=== PATIENT | female | born 1945 | race Caucasian/White ===

== ENCOUNTER → 2020-10-09 12:12 | Outpatient (CLI) | payer MEDICARE, SELFPAY ==
--- NOTE | 2020-10-09 12:34 | CA_ITS ---
APPROVED REPORT EXAM: Comprehensive 2D, Doppler, and color-flow Echocardiogram Mortician Helper: Mercedes Childress CRT Ht: 4 ft 11 in Wt: 138lbs BSA: 1.58 BP: 164/71 mmHg Indications: Abnormal ECG, Shortness of Breath, Atrial Fibrillation, CAD, Hyperlipidemia, Hypertension/HDD, CABG, Stent 2D Dimensions LVOT 1.60 cm (M/F) 1.5-2.5 M-Mode Dimensions RVDd 2.60 cm (0.9-2.6) LA Diam 4.20 cm (1.9-4.0) LVDd 3.80 cm (3.5-5.7) Ao Diam 2.50 cm (2.0-3.7) LVDs 2.50 cm (3.5-5.7) AV Cusp 1.80 cm (1.5-2.6) IVSd 1.00 cm (0.6-1.1) PWd 1.00 cm (0.6-1.1) EF (Teich) 64.00% FS 34.20% EDV (Teich) 62.00 mL ESV (Teich) 22.30 mL LV Diastology E/A Ratio 3.20 MED E' 4.87 (< 7 cm/sec) E'/MED E' Ratio 22.60 (>14) LAT E' 8.68 (<10 cm/sec) E/LAT E' Ratio 12.70 (>14) Aortic Valve AoV Peak Aj. 206.00 (50-130 cm/s) AI PHT 720.00 ms AO Peak GR. 17.00 mmHg Mitral Valve MV E Max Aj. 110.00 (40-130 cm/s) MV A Velocity 34.10 (40-130 cm/s) E/A Ratio 3.20 Pulmonary Valve LA End VMAX 38.20 cm/s PA Accel Time 74.00 (>120 msec) Tricuspid Valve TR P. Velocity 264.00 cm/s RAP Estimate 10.00 mmHg RVSP 38.00 mmHg Left Ventricle Left atrium is moderately enlarged, left ventricle is normal size, mild concentric left ventricular hypertrophy, visually estimated ejection fraction 55% with no regional wall motion abnormality, there is abnormal septal motion. Diastolic parameters are inconclusive. Right Ventricle Right atrium and right ventricle moderately enlarged with normal contractility. Aortic Valve Aortic valve is thickened and calcified leaflet chordae display good mobility, there is no aortic stenosis, there is mild aortic insufficiency. Mitral Valve Mitral valve leaflets are minimally thickened, there is mild mitral regurgitation. Tricuspid Valve Tricuspid valve is minimally thickened, there is moderate to severe tricuspid regurgitation, calculated right ventricular systolic pressure is 59 mmHg. Pulmonic Valve Pulmonic valve is poorly visualized. Great Vessels Aortic root is normal size. Pericardium No significant pericardial effusion noted. Conclusion 1. Moderate biatrial enlargement, normal left ventricular size, mild concentric left ventricular hypertrophy, visually estimated ejection fraction 55% is abnormal septal motion, diastolic parameters are inconclusive. 2. Enlarged right ventricle with normal contractility. 3. Thickened and calcified aortic valve with mild aortic insufficiency, there is no aortic stenosis. 4. Mild mitral and moderate to severe tricuspid regurgitation, calculated right ventricular systolic pressure is 59 mmHg, inferior vena cava is not well-visualized. 5. No significant pericardial effusion noted. Electronically signed by : Heladio Mike, 10/10/2020 06:13:16
[2020-10-09 13:06] LABS: Basophils # 0.1 K/mm3 (0-0.2); Basophils % 0.7 % (0.1-2.0); Eosinophils % 0.7 % (0.1-12.0); Hematocrit 45.9 % (37.0-47.0); Hemoglobin 15.1 g/dL (12.2-16.2); Lymphocytes # 1.7 K/mm3 (0.7-4.5); Lymphocytes % 25.2 % (10-50); Mean Corpuscular Hemoglobin 29.7 pg (27.0-31.2); Mean Platelet Volume 8.5 fl (7.4-10.4); Monocytes # 0.5 K/mm3 (0.1-1.0); Monocytes % 7.9 % (1.7-9.3); Neutrophils # 4.4 K/mm3 (1.8-7.8); Neutrophils % 65.5 % (37.0-80.0); Platelet Count 111 K/mm3 (142-424); White Blood Count 6.8 K/mm3 (4.8-10.8)
--- NOTE | 2020-10-09 14:06 | XR_ITS ---
PROCEDURE: XR CHEST 2V CLINICAL HISTORY: dyspnea COPD, dyspnea COMPARISON: No exams were available for comparison FINDINGS: Prior CABG. Mild cardiomegaly without failure. The lungs are clear without infiltrates, suspicious nodules, or pleural effusions. No acute bony abnormalities. IMPRESSION: Mild cardiomegaly otherwise negative Dictated by: Teo Rachel MD 10/09/2020 14:19 Teo Rachel MD in [place] 10/09/2020 14:19
[2020-10-09 14:21] LABS: Chloride 105 mmol/L (98-107)
[2020-10-09 14:22] LABS: Potassium 4.4 mmoL/L (3.5-5.1); Sodium 140 mmol/L (136-145)
[2020-10-09 14:24] LABS: Alanine Aminotransferase 18 U/L (12-78); Aspartate Amino Transferase 46 U/L (14-36); Blood Urea Nitrogen 26 mg/dl (7-17); Estimated Glomerular Filt Rate 40 ml/min (>60); GFR (African American) 48 ML/MIN (>60)
[2020-10-09 14:25] LABS: Albumin Level 4.6 g/dl (3.5-5.0); Alkaline Phosphatase 110 U/L (38-126); Anion Gap 13.4 mEq/L (5-15); Bilirubin,Direct 0.2 mg/dl (0.0-0.4); Bilirubin,Total 1.2 mg/dl (0.2-1.3); Calcium 10.4 mg/dl (8.4-10.2); Carbon Dioxide 26 mmol/L (22.0-30.0); Chol/HDL Ratio 2.6 (1-3.5); Cholesterol 113 mg/dl (140-200); Glucose 98 mg/dl (74-100); HDL Cholesterol 43 mg/dl (40-60); Total Protein,Serum 6.9 g/dl (6.3-8.2); Triglycerides 93 mg/dl (30-150); VLDL Cholesterol 19 mg/dL (0-40)
[2020-10-09 14:36] LABS: Direct LDL Cholesterol 59.71 mg/dL (100-129)
[2020-10-09 14:56] LABS: Thyroid Stimulating Hormone 2.37 uIU/mL (0.465-4.68)
== END ==
LOC: LAB 12:12 → RT 14:01
PROVIDERS: PCP Physician Assistant Medical; Visit Provider Internal Medicine
DX: I25.10 Atherosclerotic heart disease of native coronary artery without angina pectoris (principal); I48.20 Chronic atrial fibrillation, unspecified; R94.31 Abnormal electrocardiogram [ECG] [EKG]; Z95.1 Presence of aortocoronary bypass graft; Z95.5 Presence of coronary angioplasty implant and graft; R06.00 Dyspnea, unspecified
CPT/HCPCS: 36415; 71046; 80048; 80061; 80076; 84439; 84443; 85025; 93306

== ENCOUNTER → 2020-10-23 06:17 | Outpatient (CLI) | payer MEDICARE, SELFPAY ==
--- NOTE | 2020-10-23 06:17 | CA_ITS ---
APPROVED REPORT Exam: Pharmacologic Technologist: Trinidad Rick Ht: 4 ft 11 in Wt: 138 lbs BSA: 1.58 m2 HR: 68 bpm BP: 173/56 mmHg Indications: Shortness of Air, History of CABG, Abnormal EKG Medical History Medications: Lisinopril,,,,, Furosemide (LASIX),,,,, Vitamin D3,,,,, Famotidine,,,,, RoSUVASTATIN,,,,, RIvaROXABAN,,,,, FluTICASONE-Salmeterol,,,,, Stress Test Details Test: LEXISCAN HR Resting HR: 72 bpm Max Heart Rate (APMHR): 146 bpm Max HR Achieved: 120 bpm Target HR (85% APMHR): 124 bpm % of APMHR: 82 Recovery HR: 70 bpm BP Resting BP: 173.0/56.0 mmHg Max BP: 173.0/56.0 mmHg Recovery BP: 141.0/67.0 mmHg ECG Clinical Exercise duration: 04:04 min Highest Stage Achieved: Exercise capacity: 1.0 METs Stress ECG Conclusion Symptoms: Shortness of breath and dizziness, with Lexiscan Arrhythmias/Ectopy: Rare PVCs ST-T Changes: < 1.[address] segment changes. Conclusion: Myoview images to follow. Test Summary REST . . . . . . . Resting REST 25:13 . . 72 . 173/ 56 . . Stage 1 . . . . . . . Myoview Injected Stage 1 01:00 . . 106 . . . . Stage 2 01:00 . . 87 . . . . Stage 3 01:00 . . 76 . 169/ 70 . . Stage 4 01:00 . . 75 . 161/ 72 . . Stage 4 01:04 . . 73 . 161/ 62 . Stop exercise at 04:04 RECOVERY 01:00 . . 83 . . . . RECOVERY 02:00 . . 80 . 154/ 72 . . RECOVERY 03:00 . . 69 . 154/ 72 . . RECOVERY 04:00 . . 73 . 141/ 67 . . RECOVERY 04:40 . . 70 . 141/ 67 . . Electronically signed by : Heladio Mike, 10/24/2020 06:33:07
--- NOTE | 2020-10-23 06:17 | NM_ITS ---
APPROVED REPORT Exam: Nuclear Stress Test Indication: CAD, CABG, SOB, HTN, Family history, Abnormal EKG Patient Location: Outpatient Stress Tech: Trinidad Rick NM Tech:Sybil Mcfarlnad, ARRT, RT (R)(N) Ht: 4 ft 11 in Wt: 138 lbs Bra Size: 36C HR: 68 bpm BP: 173/56 mmHg BSA: 1.58 m2 BMI: 27.8 History: CAD, CABG, SOB, HTN, Family history, Abnormal EKG Procedure: Patient received a 0.4 mg of intravenous Lexiscan, resting heart rate 68 bpm, resting blood pressure 173/56 mmHg, with Lexiscan maximum heart rate achived was 106 bpm which is Less than 85 % of the maximum predicted heart rate and blood pressure was 169/70 mmHg. With Lexiscan, patient denied any complaint of chest pain. Electrocardiogram Resting electrocardiogram showed likely atrial fibrillation, with Lexiscan there is less than 1.[address] segment depression noted from the baseline EKG. The EKG portion of the Lexiscan is nondiagnostic. Cardiac Stress and Resting SPECT Images: Cardiac Stress and Resting SPECT images were obtained using technetium 99m Myoview 31.0 mCi stress and 10.48 mCi at rest. Gated SPECT for analysis of segmental wall motion and calculation of the ejection fraction also done. Cardiac stress and also SPECT images show uniform myocardial activity without segmental perfusion abnormality, computer derived ejection fraction 62% with no regional wall motion abnormality, right ventricle is mildly enlarged with normal contractility. Conclusion: 1. The EKG portion of the Lexiscan is nondiagnostic. 2. No scintigraphic evidence of reversible ischemia seen, computer derived ejection fraction 62% with no regional wall motion abnormality, right ventricle is mildly enlarged with normal contractility. 3. Normal Lexiscan Myoview study. Electronically signed by : Heladio Mike, 10/24/2020 06:39:29
--- NOTE | 2020-10-23 06:17 | CA_ITS ---
APPROVED REPORT Accounting Support Specialist: CT Laterality: Bilateral Study Quality: Good Indications: bilateral JAMAL Risk Factors Hypertension: Doppler Spectral Velocity Analysis ECA (R) 104.00/ cm/s ECA (L) 64.60/ cm/s dICA (R) 130.00/32.10 cm/s dICA (L) 101.00/38.00 cm/s Hank (R) 104.00/36.90 cm/s Hank (L) 91.00/36.90 cm/s pICA (R) 75.10/17.90 cm/s pICA (L) 61.10/16.20 cm/s dCCA (R) 71.50/ cm/s dCCA (L) 76.10/19.60 cm/s pCCA (R) 102.00/25.10 cm/s pCCA (L) 97.80/22.30 cm/s Vert (R) 44.00/ cm/s Vert (L) 47.70/ cm/s ICA/CCA 1.82 ICA/CCA 1.33 Findings Duplex evaluation demonstrates stenosis of the right proximal internal carotid artery <20% with PSV <140 cm/sec, EDV <100 cm/sec, and IC/CC Ratio <4.0. Duplex evaluation demonstrates stenosis of the left proximal internal carotid artery <20% with PSV <140 cm/sec, EDV <100 cm/sec, and IC/CC Ratio <4.0. Duplex evaluation demonstrates antegrade flow of the bilateral Vertebral Arteries. Conclusion Duplex evaluation demonstrates stenosis of the right proximal internal carotid artery <20% with PSV <140 cm/sec, EDV <100 cm/sec, and IC/CC Ratio <4.0. Duplex evaluation demonstrates stenosis of the left proximal internal carotid artery <20% with PSV <140 cm/sec, EDV <100 cm/sec, and IC/CC Ratio <4.0. Duplex evaluation demonstrates antegrade flow of the bilateral Vertebral Arteries. Electronically signed by : Teo Rachel MD 10/24/2020 16:52:16
--- NOTE | 2020-10-23 08:44 | HMH.ITSHM ---
Current Home Medications as stated by this patient Miroslava Portillo or retail service representative. []ROSUVASTATIN RIVAROXABAN LISINOPRIL FUROSEMIDE FAMOTIDINE NASAL SPRAY VITAMIN D3
--- NOTE | 2020-10-23 13:18 | US_ITS ---
PROCEDURE: US THYROID CLINICAL INDICATION: elevated Calcium level COMPARISON: US CA CAROTID DUPLEX BI from 10/23/2020 FINDINGS: Right lobe: 1.3cm x 3.6cm x 0.9cm Left lobe: 1.1cm x 3.2cm x 1.2cm Isthmus: Unremarkable Additional findings: There is a benign-appearing 14 x 8 mm cyst in the lower pole of the right lobe of the thyroid gland. No other nodules are evident. IMPRESSION: 14 mm benign-appearing cyst of the right lobe of the thyroid gland otherwise negative Dictated by: Teo Rachel MD 10/25/2020 13:33 Teo Rachel MD in [place] 10/25/2020 13:33
[2020-10-23 14:51] LABS: 25-OH Vitamin D, Total 43.2 ng/mL (30-100)
[2020-10-26 09:10] LABS: Protein S, Free 85 % (57-157); Protein S, Total 55 % (60-150); Protein S-Functional 105 % (63-140)
[2020-10-27 04:18] LABS: Calcitonin <2.0 pg/mL (0.0-5.0)
[2020-11-08 08:38] LABS: 1,25 Dihydroxy Vitamin D 65 pg/mL (.); 1,25-Dihydroxy, Vitamin D-2 <10 pg/mL (.); 1,25-Dihydroxy, Vitamin D-3 62 pg/mL (.)
== END ==
PROVIDERS: Urology; PCP Physician Assistant Medical; Visit Provider Internal Medicine
DX: I25.10 Atherosclerotic heart disease of native coronary artery without angina pectoris (principal); I48.20 Chronic atrial fibrillation, unspecified; I65.23 Occlusion and stenosis of bilateral carotid arteries; R94.31 Abnormal electrocardiogram [ECG] [EKG]; Z95.1 Presence of aortocoronary bypass graft; Z95.5 Presence of coronary angioplasty implant and graft; E83.52 Hypercalcemia; R06.00 Dyspnea, unspecified
CPT/HCPCS: 36415; 76536; 78452; 82306; 82308; 82652; 83970; 84155; 85305; 85306; 93017; 93880; A9502; J2785

== ENCOUNTER → 2020-11-08 13:28 | Outpatient (CLI) | payer MEDICARE, SELFPAY ==
[2020-11-10 14:51] LABS: Albumin, U 64.3 % (.); Alpha-1-Globulin, U 2.4 % (.); Alpha-2-Globulin, U 11.7 % (.); Beta Globulin, U 13.8 % (.); Gamma Globulin, U 7.8 % (.); M-Spike, % Not Observed % (Not Observed); Prot,24hr calculated 196 mg/24 hr (30-150); Protein,Total,Urine 24.5 mg/dL (Not Estab.)
[2020-11-10 18:46] LABS: Albumin 4.2 g/dL (2.9-4.4); Alpha-1-Globulin 0.3 g/dL (0.0-0.4); Alpha-2-Globulin 0.9 g/dL (0.4-1.0); Gamma Globulin 0.6 g/dL (0.4-1.8); Protein, Total 7.2 g/dL (6.0-8.5)
== END ==
PROVIDERS: Visit Provider Internal Medicine
DX: E83.52 Hypercalcemia (principal)
CPT/HCPCS: 84155; 84156; 84165; 84166

== ENCOUNTER → 2020-11-16 14:03 | Outpatient (CLI) | payer MEDICARE, SELFPAY ==
--- NOTE | 2020-11-16 14:03 | XR_ITS ---
PROCEDURE: XR DEXA AXIAL SKELETON CLINICAL HISTORY: elevated calcium COMPARISON: No exams were available for comparison FINDINGS: The right hip BMD is 0.652 with a T-score of -1.8. The left hip BMD is 0.709 with a T-score of -1.3. The lumbar spine BMD is 0.932 with a T-score of -1.0. IMPRESSION: This patient is considered osteopenic according to the World Health Organization criteria. Bone density is between 10 and 25 percent below young normal. Fracture risk is moderate. Treatment is advised. Based on these results a follow-up exam is recommended in 2 year. Dictated by: Teo Rachel MD 11/17/2020 02:29 Teo Rachel MD in [place] 11/17/2020 11:00
[2020-11-22 12:57] LABS: Calcium, Ionized 5.4
== END ==
PROVIDERS: Otolaryngology; PCP Physician Assistant Medical; Visit Provider Internal Medicine
DX: E78.5 Hyperlipidemia, unspecified (principal); E83.52 Hypercalcemia; I10 Essential (primary) hypertension; I25.10 Atherosclerotic heart disease of native coronary artery without angina pectoris; I48.20 Chronic atrial fibrillation, unspecified; M81.0 Age-related osteoporosis without current pathological fracture; R06.00 Dyspnea, unspecified; Z95.1 Presence of aortocoronary bypass graft; Z95.5 Presence of coronary angioplasty implant and graft
CPT/HCPCS: 77080; 82330

== ENCOUNTER → 2020-11-16 15:56 | Outpatient (CLI) | payer MEDICARE, SELFPAY | PROVIDERS: Visit Provider Otolaryngology | DX: E04.1 Nontoxic single thyroid nodule (principal) | CPT/HCPCS: 82330 ==

== ENCOUNTER → 2020-12-07 08:48 | Outpatient (CLI) | payer MEDICARE, SELFPAY ==
--- NOTE | 2020-12-07 08:49 | NM_ITS ---
PROCEDURE: NM PARATHYROID CLINICAL INDICATION: Thryoid Nodule Elevated calcium, thyroid nodule COMPARISON: US US THYROID from 10/23/2020 TECHNIQUE: Dose 21.0 mCi technetium sestamibi FINDINGS: Ultrasound demonstrated a cystic nodule in the posterior aspect of the right lobe of the thyroid gland. Immediate and 2 hour delayed images are obtained following the intravenous administration of radiopharmaceutical. There is no abnormal uptake on the immediate or the 2 hour delayed images. IMPRESSION: No abnormal uptake within the neck that would indicate a parathyroid adenoma. Dictated by: Teo Rachel MD 12/08/2020 13:01 Teo Rachel MD in [place] 12/08/2020 13:01
== END ==
PROVIDERS: PCP Physician Assistant Medical; Visit Provider Otolaryngology
DX: E04.1 Nontoxic single thyroid nodule (principal); E34.9 Endocrine disorder, unspecified
CPT/HCPCS: 78070; A9500

== ENCOUNTER → 2021-03-05 10:05 | Outpatient (CLI) | payer MEDICARE, SELFPAY ==
[2021-03-05 11:21] LABS: Intact Parathyroid Hormone 84.3 pg/mL (7.5-53.5)
[2021-03-08 12:44] LABS: Calcium, Ionized 5.2 mg/dL (4.5-5.6)
== END ==
PROVIDERS: Visit Provider Otolaryngology
DX: E04.1 Nontoxic single thyroid nodule (principal)
CPT/HCPCS: 36415; 82330; 83970

== ENCOUNTER → 2021-12-18 12:20 | Outpatient (CLI) | payer MEDICARE, SELFPAY ==
--- NOTE | 2021-12-18 12:52 | CA_ITS ---
APPROVED REPORT EXAM: Comprehensive 2D, Doppler, and color-flow Echocardiogram Jig Bore Tool Maker: Jennifer Cedillo RVT Ht: 4 ft 11 in Wt: 135lbs BSA: 1.56 BP: 150/50 mmHg Indications: A-FIB,CABG,CAD,HTN,HLD,SANCHEZ,GERD TDS 2D Dimensions LVOT 1.96 cm (M/F) 1.5-2.5 LA Volume 68.60 mL LA Volume Index 43.97 mL/m2 (M/F) 16-34 M-Mode Dimensions RVDd 2.88 cm (0.9-2.6) LA Diam 4.73 cm (1.9-4.0) LVDd 3.42 cm (3.5-5.7) Ao Diam 2.63 cm (2.0-3.7) LVDs 2.43 cm (3.5-5.7) IVSd 1.52 cm (0.6-1.1) PWd 0.80 cm (0.6-1.1) EF (Teich) 56.80% FS 28.90% EDV (Teich) 48.10 mL TAPSE 1.56 (<1.7) ESV (Teich) 20.80 mL LV Diastology E Decel Time 93.00 (160-240 msec) E/A Ratio 3.1 MED E' 13.00 (< 7 cm/sec) E'/MED E' Ratio 8.96 (>14) LAT E' 12.70 (<10 cm/sec) E/LAT E' Ratio 9.17 (>14) Aortic Valve LVOT Max 122.00 (70-110 cm/s) LVOT VTI 22.22 cm AoV Peak Aj. 229.00 (50-130 cm/s) AI PHT 1070.00 ms AO Peak GR. 21.10 mmHg AO Mean GR. 8.20 (<5 mmHg) AO VTI 30.73 (18-25 cm) MANJEET (VTI) 2.18 (2.5-4.5 cm2) Mitral Valve MV E Max Aj. 117.00 (40-130 cm/s) MV A Velocity 38.00 (40-130 cm/s) E/A Ratio 3.03 MV Decel. Time 93.00 (160-240 ms) MV PHT 27.00 ms Pulmonary Valve PV Peak Velocity 122.00 (50-150 cm/s) Tricuspid Valve TR P. Velocity 413.00 cm/s RAP Estimate 10.00 mmHg RVSP 78.30 mmHg Left Ventricle Left atrium is moderately enlarged, left ventricle is normal size, mild concentric left ventricular hypertrophy, visually estimated ejection fraction 55%, there is abnormal septal motion, there is flattening of the interventricular septum during systole and diastole consistent with pressure and volume overload on right ventricle. Diastolic parameters are inconclusive. Right Ventricle Right atrium and right ventricle moderately enlarged, contractility of the right ventricle is moderately reduced. Aortic Valve Aortic valve is thickened and calcified, mean gradient across aortic valve is 10 mmHg, valve area is 1.56 cm??? represents mild aortic stenosis, there is no aortic insufficiency. Mitral Valve Mitral valve leaflets are minimally thickened, there is mild mitral regurgitation. Tricuspid Valve Tricuspid valve leaflets are not well visualized, there is severe tricuspid regurgitation, calculated right ventricular systolic pressure 78 mmHg. Pulmonic Valve Pulmonic valve is poorly visualized. Great Vessels Aortic root is normal size. No significant pericardial effusion noted. Inferior vena cava is moderately dilated without significant inspiratory collapse. Conclusion 1. Biatrial enlargement, normal left ventricular size, mild concentric left ventricular hypertrophy, visually estimated ejection fraction 55%, there is flattening of the interventricular septum during systole and diastole consistent with pressure and volume overload on right ventricle. Diastolic parameters are inconclusive. 2. Thickened and calcified aortic valve with mild aortic stenosis, valve area is 1.56 cm, there is no significant aortic insufficiency present. 3. Mild mitral and severe tricuspid regurgitation, calculated right ventricular systolic pressure 78 mmHg, inferior vena cava is dilated without significant inspiratory collapse with 4. Moderately enlarged right ventricle with moderately reduced right ventricular systolic function. 5. No significant pericardial effusion noted. Electronically signed by : Heladio Mike MD 12/18/2021 19:20:23
[2021-12-18 12:58] LABS: Basophils % 0.5 % (0.1-2.0); Eosinophils % 0.8 % (0.1-12.0); Hematocrit 38.6 % (37.0-47.0); Lymphocytes # 0.9 K/mm3 (0.7-4.5); Lymphocytes % 18.6 % (10-50); Mean Corpuscular HGB Conc 31.1 g/dL (31.8-35.4); Mean Corpuscular Hemoglobin 28.3 pg (27.0-31.2); Mean Platelet Volume 7.9 fl (7.4-10.4); Monocytes # 0.4 K/mm3 (0.1-1.0); Monocytes % 7.6 % (1.7-9.3); Neutrophils # 3.3 K/mm3 (1.8-7.8); Neutrophils % 72.5 % (37.0-80.0); Platelet Count 103 K/mm3 (142-424); Red Blood Count 4.24 M/mm3 (4.20-5.40); Red Cell Distribution Width 14.4 % (11.5-17.5); White Blood Count 4.6 K/mm3 (4.8-10.8)
[2021-12-18 13:14] LABS: Chloride 104 mmol/L (98-107); Potassium 3.8 mmoL/L (3.5-5.1); Sodium 137 mmol/L (136-145)
[2021-12-18 13:16] LABS: Alanine Aminotransferase 17 U/L (12-78); Aspartate Amino Transferase 39 U/L (14-36); Bilirubin,Unconjugated 1.2 mg/dL (0.0-1.1); Blood Urea Nitrogen 21 mg/dl (7-17); Estimated Glomerular Filt Rate 54 ml/min (>60); GFR (African American) 65 ML/MIN (>60)
[2021-12-18 13:17] LABS: Albumin Level 4.4 g/dl (3.5-5.0); Alkaline Phosphatase 135 U/L (38-126); Anion Gap 11.8 mEq/L (5-15); Bilirubin,Direct 0.5 mg/dl (0.0-0.4); Bilirubin,Indirect 1.2 mg/dL (0.0-0.9); Bilirubin,Total 1.7 mg/dl (0.2-1.3); Calcium 9.1 mg/dl (8.4-10.2); Carbon Dioxide 25 mmol/L (22.0-30.0); Glucose 103 mg/dl (74-100); Total Protein,Serum 6.6 g/dl (6.3-8.2)
[2021-12-18 13:28] LABS: NT Pro Brain Natriuretic Pep. 1020 pg/mL (0-450)
[2021-12-18 15:08] LABS: 25-OH Vitamin D, Total 43.2 ng/mL (30-100)
== END ==
PROVIDERS: PCP Physician Assistant Medical; Visit Provider Internal Medicine
DX: E78.5 Hyperlipidemia, unspecified (principal); I10 Essential (primary) hypertension; I25.10 Atherosclerotic heart disease of native coronary artery without angina pectoris; I48.20 Chronic atrial fibrillation, unspecified; R06.00 Dyspnea, unspecified; R94.31 Abnormal electrocardiogram [ECG] [EKG]; Z95.1 Presence of aortocoronary bypass graft; Z95.5 Presence of coronary angioplasty implant and graft; M81.0 Age-related osteoporosis without current pathological fracture
CPT/HCPCS: 36415; 80048; 80076; 82306; 83880; 84439; 84443; 85025; 93306

== ENCOUNTER 2021-12-18 18:42 | Inpatient (IN) | payer MEDICARE, SELFPAY ==
--- NOTE | 2021-12-18 18:57 | PC.NURSE ---
Pt arrived to the floor at this time
[2021-12-18 19:09] VITALS: BP 153/65; PULSE 72; RESP 14; TEMP 36.8; O2SAT 99; BMI 27.8
[2021-12-18 19:43] LABS: Coronavirus 19, PCR Not Detected (NotDetected); Influenza A, PCR Not Detected (NotDetected); Influenza B, PCR Not Detected (NotDetected)
--- NOTE | 2021-12-18 20:24 | HMH.HP ---
*Admission Date: 12/18/21 *Chief complaint: sob *History of present illness: this patient with known cad, a fib and s/p cabg was seen in the cardiology clinic and had a fib with rapid response and abn echo and was admitted for eval and treatment - [facility] History I have reviewed the patient's past medical history: Yes Medical History: Reports:: Atrial Fibrillation, Coronary Artery Disease, Gastroesophageal Reflux Disease(GERD), Hyperlipidemia, Hypertension *Have you ever received a pneumonia vaccine?: No *Have you received a flu vaccine this season?: No Other Surgeries: Yes: CABG, Cardiac Catheterization, Coronary Stent - *Social History Smoking Status: Never smoker Alcohol Intake: never Substance Use Type: denies use *Occupational Status:: employed, disabled *Travel in the last 8 weeks: None Family Hx:: Coronary Artery Disease, Heart Attack Review of Systems - Review of Systems Review of systems:: pertinent systems reviewed and negative unless documented below - Constitutional Denies fever(s) - Eyes Denies change in vision - ENT Denies sore throat - *Cardiovascular Reports shortness of breath, Reports irregular heart rhythm, Reports fast heart rate, Denies chest pain - *Respiratory Denies cough, Denies coughing up blood - *Gastrointestinal Denies abdominal pain - *Genitourinary Denies blood in urine - *Musculoskeletal Denies joint pain - Integumentary/Breasts Denies rash - *Neurologic Denies dizziness, Denies seizure-like activity - Psychiatric Denies anxiety Meds Home Medications Medication Instructions Recorded Confirmed Type cholecalciferol (vitamin D3) 50 50 mcg PO DAILY 10/09/20 12/18/21 History mcg (2,000 unit) capsule famotidine 20 mg tablet 20 mg PO BID tab 10/09/20 12/18/21 History fluticasone 250 mcg-salmeterol 50 1 inh INHALATION BID each 10/09/20 12/18/21 History mcg/dose blistr powdr for inhalation lisinopril 20 mg tablet 20 mg PO DAILY tab 10/09/20 12/18/21 History rivaroxaban 20 mg tablet 20 mg PO DAILY tab 10/09/20 12/18/21 History albuterol sulfate 90 mcg/actuation g INHALATION 03/12/21 12/18/21 History aerosol inhaler ketoconazole 2 % topical cream applic TOPICAL 03/12/21 12/18/21 History furosemide 40 mg tablet 80 mg PO DAILY tab 06/12/21 12/18/21 History bisoprolol fumarate 10 mg tablet 10 mg PO DAILY #30 tab 12/18/21 12/18/21 Rx Allergies Allergy/AdvReac Type Severity Reaction Status Date / Time No Known Allergies Allergy Verified 12/18/21 10:58 Exam Vital signs and Labs for Last 24 Hours: Temp Pulse Resp BP Pulse Ox 98.3 F 72 14 153/65 H 99 12/18/21 19:09 12/18/21 19:09 12/18/21 19:09 12/18/21 19:09 12/18/21 19:09 I & O for Last 24 hours: Intake & Output 12/16/21 12/17/21 12/18/21 12/19/21 11:59 11:59 11:59 11:59 Weight 138 lb - Constitutional no acute distress - *Routine HEENT Exam Head: Present: normocephalic Eye: Present: EOMI, PERRL ENT: Present: mucous membranes dry - *Routine Neck Exam Present: supple. Absent: JVD - *Routine Respiratory Exam Present: decreased breath sounds - *Routine Cardiovascular Exam Present: murmur, S4, irregular rhythm - *Routine Abdominal Exam Present: soft - *Routine Rectal Exam Rectal:: deferred - *Routine Genitalia Exam Genitalia:: deferred - *Routine Extremities Exam Present: edema. Absent: calf tenderness - *Routine Skin Exam Present: intact - *Routine Neurological Exam Present: alert, oriented X3, CN II-XII intact. Absent: altered mental status - Routine Psychiatric Exam Present: cooperative Assessment and Plan (1) Pulmonary HTN Status: Acute Category: Medical Code(s): I27.20 - Pulmonary hypertension, unspecified (2) Atrial fibrillation with RVR Status: Acute Category: Medical Code(s): I48.91 - Unspecified atrial fibrillation (3) HLD (hyperlipidemia) Status: Chronic Qualifiers: Hyperlipidemia type: un
[2021-12-18 20:34] LABS: Basophils % 0.5 % (0.1-2.0); Eosinophils % 1.1 % (0.1-12.0); Hematocrit 36.2 % (37.0-47.0); Hemoglobin 11.7 g/dL (12.2-16.2); Lymphocytes # 0.9 K/mm3 (0.7-4.5); Lymphocytes % 22.2 % (10-50); Mean Corpuscular HGB Conc 32.4 g/dL (31.8-35.4); Mean Corpuscular Hemoglobin 29.1 pg (27.0-31.2); Mean Corpuscular Volume 89.9 fl (81-99); Mean Platelet Volume 7.9 fl (7.4-10.4); Monocytes # 0.3 K/mm3 (0.1-1.0); Monocytes % 6.8 % (1.7-9.3); Neutrophils # 2.7 K/mm3 (1.8-7.8); Neutrophils % 69.4 % (37.0-80.0); Platelet Count 87 K/mm3 (142-424); Red Blood Count 4.03 M/mm3 (4.20-5.40); Red Cell Distribution Width 14.3 % (11.5-17.5); White Blood Count 3.9 K/mm3 (4.8-10.8)
--- NOTE | 2021-12-18 20:35 | XR_ITS ---
PROCEDURE INFORMATION: Exam: XR Chest Exam date and time: 12/18/2021 8:35 PM Age: 76 years old Clinical indication: Prior surgery; Surgery date: 6+ months; Surgery type: Cabg, 3 cardiac stents. ; Patient HX: Shortness of breath and rapid heart beat. ; Additional info: SOB TECHNIQUE: Imaging protocol: XR of the chest. Views: 1 view. COMPARISON: CR XR CHEST 2V 10/09/2020 2:09 PM FINDINGS: Lungs: Ground-glass and consolidative opacities in the bilateral lower lungs, which may represent subsegmental atelectasis vs infiltrate. Pulmonary vascular congestion without overt pulmonary edema. Pleural spaces: No large pleural effusion. No pneumothorax. Heart/Mediastinum: Cardiomediastinal silhouette is unchanged, accounting for differences in technique. Bones/joints: No acute osseous abnormality. Soft tissues: Unremarkable. IMPRESSION: 1. Ground-glass and consolidative opacities in the bilateral lower lungs, which may represent subsegmental atelectasis vs infiltrate. 2. Pulmonary vascular congestion without overt pulmonary edema.
[2021-12-18 20:37] VITALS: PULSE 70
[2021-12-18 20:38] LABS: Chloride 105 mmol/L (98-107)
[2021-12-18 20:39] LABS: Potassium 3.7 mmoL/L (3.5-5.1); Sodium 136 mmol/L (136-145)
[2021-12-18 20:41] LABS: Blood Urea Nitrogen 20 mg/dl (7-17); Creatinine Clearance Estimated 48 mL/min (50-200); Estimated Glomerular Filt Rate 61 ml/min (>60); GFR (African American) 74 ML/MIN (>60)
--- NOTE | 2021-12-18 20:41 | ECG_ITS ---
APPROVED REPORT Exam: Resting ECG HR:72 bpm ECG Measurements Heart Rate 72 AXES QRSd 129 QRS -6 QT 424 T 47 QTc 448 Conclusion ATRIAL FIBRILLATION WITH ABERRANT CONDUCTION OR VENTRICULAR PREMATURE COMPLEXES RIGHT BUNDLE BRANCH BLOCK [120+ ms QRS DURATION, UPRIGHT V1, 40+ ms S IN I/aVL/V4/V5/V6] MINIMAL VOLTAGE CRITERIA FOR LVH, CONSIDER NORMAL VARIANT [MEETS CRITERIA IN ONE OF: R(aVL), S(V1), R(V5), R(V5/V6)+S(V1)] ABNORMAL ECG UNCONFIRMED REPORT Electronically signed by : Js Grove MD 12/19/2021 21:00:58
[2021-12-18 20:42] LABS: Anion Gap 12.7 mEq/L (5-15); Calcium 9.1 mg/dl (8.4-10.2); Carbon Dioxide 22 mmol/L (22.0-30.0); Glucose 116 mg/dl (74-100)
[2021-12-18 20:54] LABS: Troponin I 0.02 ng/ml (0.00-0.034)
[2021-12-18 21:05] LABS: Magnesium 1.9 mg/dl (1.6-2.3)
[2021-12-18 23:51] VITALS: BP 139/47; PULSE 70; RESP 16; TEMP 36.6; O2SAT 96
[2021-12-19] VITALS (7 sets, daily range): BP systolic 111–129; BP diastolic 59–80; PULSE 59–121; RESP 14–18; TEMP 36.5–37.2; O2SAT 92–100; BMI 27.8
[2021-12-19 06:13] LABS: Basophils % 0.7 % (0.1-2.0); Eosinophils % 1.2 % (0.1-12.0); Hematocrit 35.9 % (37.0-47.0); Hemoglobin 11.6 g/dL (12.2-16.2); Lymphocytes # 0.7 K/mm3 (0.7-4.5); Lymphocytes % 22.9 % (10-50); Mean Corpuscular HGB Conc 32.2 g/dL (31.8-35.4); Mean Corpuscular Volume 90.2 fl (81-99); Mean Platelet Volume 7.6 fl (7.4-10.4); Monocytes # 0.3 K/mm3 (0.1-1.0); Monocytes % 10.6 % (1.7-9.3); Neutrophils % 64.6 % (37.0-80.0); Platelet Count 90 K/mm3 (142-424); Red Blood Count 3.98 M/mm3 (4.20-5.40); Red Cell Distribution Width 14.4 % (11.5-17.5); White Blood Count 3.1 K/mm3 (4.8-10.8)
[2021-12-19 06:15] LABS: Chloride 107 mmol/L (98-107); Sodium 137 mmol/L (136-145)
[2021-12-19 06:16] LABS: Potassium 3.7 mmoL/L (3.5-5.1)
[2021-12-19 06:19] LABS: Anion Gap 8.7 mEq/L (5-15); Blood Urea Nitrogen 19 mg/dl (7-17); Calcium 8.5 mg/dl (8.4-10.2); Carbon Dioxide 25 mmol/L (22.0-30.0); Creatinine Clearance Estimated 48 mL/min (50-200); Estimated Glomerular Filt Rate 61 ml/min (>60); GFR (African American) 74 ML/MIN (>60); Glucose 92 mg/dl (74-100)
--- NOTE | 2021-12-19 08:10 | P.CONPHA_ITS ---
[facility] VTE Monitoring - Patient Demographics Admission date: 12/19/21 Report Date: 12/19/21 Time: 08:10 Allergies/Adverse Reactions: Patient Allergies No Known Allergies Allergy (Verified 12/18/21 10:58) Height: 1.5 m Weight: 62.596 kg Patient Problems: Current Active Problems Pulmonary HTN (Acute) Overweight (BMI 25.0-29.9) (Acute) Mild concentric left ventricular hypertrophy (LVH) (Acute) Aortic stenosis (Acute) Tricuspid regurgitation (Acute) Atrial fibrillation with RVR (Acute) HLD (hyperlipidemia) (Chronic) HTN (hypertension) (Chronic) Atrial fibrillation (Chronic) Hx of CABG (Chronic) CAD (coronary artery disease) (Chronic) - VTE Risk Labs: VTE Related Lab Results Hgb 11.6 g/dL (12.2-16.2) L 12/19/21 05:27 Hct 35.9 % (37.0-47.0) L 12/19/21 05:27 Plt Count 90 K/mm3 (142-424) L 12/19/21 05:27 BUN 19 mg/dl (7-17) H 12/19/21 05:27 Creatinine 0.90 mg/dl (0.52-1.04) 12/19/21 05:27 Estimated Creat Clear 48 mL/min (50-200) 12/19/21 05:27 Was VTE Risk Assessment Performed: Yes VTE Risk Level: Low Risk Clinical Trial Participant: No - Prophylaxis VTE Prophylaxis Ordered?: Yes Types of VTE Prophylaxis: TEDS Knee High Location of Applied Device: Bilateral Lower Extremeties
--- NOTE | 2021-12-19 09:37 | HMH.PNCARD ---
Subjective Date: 12/19/21 (\) Time: 09:00 Principal diagnosis: chf Interval history: This is a 76-year-old white female who was admitted to the hospital from Dr. Pastrana's office secondary to an acute exacerbation of diastolic congestive heart failure, pulmonary hypertension and atrial fibrillation with RVR. The patient was significantly short of breath. She had been stating that with any amount of exertion and even at rest she was having a hard time catching her breath. She felt as if she were smothering. This was worse with exertion. It improves with rest but did not resolve. She denied any chest pain or pressure. She did have associated edema in her lower extremities and hands associated with the shortness of breath. She also has been having a productive cough and sneezing. She denies any fever, chills. She states that she has been very nauseous but no vomiting. No diarrhea. She is unable to lie flat due to her shortness of breath. The patient was admitted to the hospital and started on IV Lasix. She states that her shortness of breath has significantly improved. She is still short of breath but it is much improved today. She states that she still feels really nauseated and had Zofran this morning. She denies any chest pain or pressure. The patient's echocardiogram yesterday shows severe tricuspid regurgitation and pulmonary hypertension. When she got to the hospital to be admitted her atrial fibrillation was rate controlled with a heart rate in the 60s and 70s, so bisoprolol was not administered. She remains rate controlled this morning. Exam Vital signs and Labs for Last 24 Hours: Temp Pulse Resp BP Pulse Ox 97.7 F 73 18 122/59 L 98 12/19/21 07:48 12/19/21 07:48 12/19/21 07:48 12/19/21 07:48 12/19/21 07:48 Laboratory Results - last 24 hr 12/18/21 19:31: SARS-CoV-2 (PCR) Not detected, Influenza A Untype (PCR) Not detected, Influenza Type B (PCR) Not detected 12/18/21 20:25: WBC 3.9 L, RBC 4.03 L, Hgb 11.7 L, Hct 36.2 L, MCV 89.9, MCH 29.1, MCHC 32.4, RDW 14.3, Plt Count 87 L, MPV 7.9, Neut % (Auto) 69.4, Lymph % (Auto) 22.2, [place] % (Auto) 6.8, Eos % (Auto) 1.1, Baso % (Auto) 0.5, Neut # (Auto) 2.7, Lymph # (Auto) 0.9, [place] # (Auto) 0.3, Eos # (Auto) 0.0, Baso # (Auto) 0.0 12/18/21 20:25: Sodium 136, Potassium 3.7, Chloride 105, Carbon Dioxide 22, Anion Gap 12.7, BUN 20 H, Creatinine 0.90, Estimated Creat Clear 48, Estimated GFR 61, Est GFR ( Amer) 74, Glucose 116 H, Calcium 9.1, Troponin I 0.02 12/18/21 20:25: Magnesium 1.9 12/19/21 05:27: WBC 3.1 L, RBC 3.98 L, Hgb 11.6 L, Hct 35.9 L, MCV 90.2, MCH 29.0, MCHC 32.2, RDW 14.4, Plt Count 90 L, MPV 7.6, Neut % (Auto) 64.6, Lymph % (Auto) 22.9, [place] % (Auto) 10.6 H, Eos % (Auto) 1.2, Baso % (Auto) 0.7, Neut # (Auto) 2.0, Lymph # (Auto) 0.7, [place] # (Auto) 0.3, Eos # (Auto) 0.0, Baso # (Auto) 0.0 12/19/21 05:27: Sodium 137, Potassium 3.7, Chloride 107, Carbon Dioxide 25, Anion Gap 8.7, BUN 19 H, Creatinine 0.90, Estimated Creat Clear 48, Estimated GFR 61, Est GFR ( Amer) 74, Glucose 92 D, Calcium 8.5 I & O for Last 24 hours: Intake & Output 12/16/21 12/17/21 12/18/21 12/19/21 23:59 23:59 23:59 23:59 Intake Total 480 / 480 Balance 480 / 480 Weight 138 lb Narrative: Telemetry strip now shows atrial fibrillation with a rate of 93. - Constitutional no acute distress, average body habitus - *Routine HEENT Exam Head: Present: normocephalic, atraumatic Eye: Present: EOMI, PERRL ENT: Present: mucous membranes moist - *Routine Neck Exam Present: supple, full ROM, normal carotid upstroke. Absent: JVD, carotid bruit, lymphadenopathy - *Routine Respiratory Exam Present: CTA bilaterally - *Routine Cardiovascular Exam Present: RRR, Normal S1, Normal S2, murmur, irregularly irregular - *Routine Abdominal Exam Present: soft, normoactive bowel sounds. Absent: tenderness, distended - *Routine Extremities Exam Present: edema, full ROM,
--- NOTE | 2021-12-19 09:49 | CT_ITS ---
FINAL REPORT CLINICAL HISTORY: sob FINDINGS: Axial images were obtained from the lung apex to the mid abdomen by computed tomography. Coronal reformatted images were obtained. This study was performed with techniques to keep radiation doses as low as reasonably achievable, (ALARA). Individualized dose reduction techniques using automated exposure control or adjustment of mA and/or kV according to the patient's size were employed. There has been sternotomy. There is severe cardiomegaly. There is widespread mediastinal adenopathy. There is bilateral axillary adenopathy, left greater than right. There are mild changes of emphysema with mild scarring. There is a small right pleural effusion. There is mild pulmonary ground-glass opacity that may represent edema. There is mild right base atelectasis. IMPRESSION: Widespread mediastinal adenopathy with bilateral axillary adenopathy. Mild pulmonary ground-glass opacity that may represent edema. Small right pleural effusion with mild right base atelectasis. Reviewed, Interpreted and Dictated by Faustino Pineda III, MD Transcribed by Bayron Beltran Authenticated by Faustino Pineda III, MD on 12/19/2021 12:46:18 PM [facility]
--- NOTE | 2021-12-19 09:50 | CT_ITS ---
FINAL REPORT TECHNIQUE: Then section axial CT images of the chest were obtained with contrast. Three-D reformatted images were also obtained.This study was performed with techniques to keep radiation doses as low as reasonably achievable (ALARA). Individualized dose reduction techniques using automated exposure control or adjustment of mA and/or kV according to the patient''s size were employed. CLINICAL HISTORY: sob FINDINGS: There has been median sternotomy. There is no evidence of pulmonary embolism. There is no evidence of thoracic aortic aneurysm or dissection. There is severe cardiomegaly with marked enlargement of the right atrium. There is bulky mediastinal adenopathy. Right paratracheal adenopathy measures 5.2 cm. AP window adenopathy measures 4.4 cm. Bilateral axillary adenopathy is greater on the left than right. A left axillary lymph node measures up to 42 mm. There is a small right pleural effusion with mild right base atelectasis. There is mild pulmonary ground-glass opacity that may represent edema. Images of the upper abdomen demonstrate upper abdominal adenopathy. There is splenomegaly. IMPRESSION: Severe cardiomegaly. No evidence of pulmonary embolism. Bulky thoracic and abdominal adenopathy with splenomegaly. Findings are most worrisome for lymphoma. Small right pleural effusion. Reviewed, Interpreted and Dictated by Faustino Pineda III, MD Transcribed by Bayron Beltran Authenticated by Faustino Pineda III, MD on 12/19/2021 12:47:23 PM [facility]
--- NOTE | 2021-12-19 10:01 | HMH.PHAINT ---
Home med rec complete
--- NOTE | 2021-12-19 10:25 | HMH.ITSTN ---
spoke to RN about location of iv and stated i needed a new one for a PE study
--- NOTE | 2021-12-19 10:51 | PC.NURSE ---
New 20g PIV placed in pts LAC. Radiology notified at this time that pt is ready for CTA
--- NOTE | 2021-12-19 12:55 | HMH.ACPN2 ---
Internal Medicine - PN: Subj *Date: 12/19/21 *Time: 08:00 Interval history: pt states doing well. Exam Vital signs and Labs for Last 24 Hours: Temp Pulse Resp BP Pulse Ox 98.2 F 121 H 18 129/80 92 L 12/19/21 12:00 12/19/21 12:00 12/19/21 12:00 12/19/21 12:00 12/19/21 12:00 Laboratory Results - last 24 hr 12/18/21 19:31: SARS-CoV-2 (PCR) Not detected, Influenza A Untype (PCR) Not detected, Influenza Type B (PCR) Not detected 12/18/21 20:25: WBC 3.9 L, RBC 4.03 L, Hgb 11.7 L, Hct 36.2 L, MCV 89.9, MCH 29.1, MCHC 32.4, RDW 14.3, Plt Count 87 L, MPV 7.9, Neut % (Auto) 69.4, Lymph % (Auto) 22.2, [place] % (Auto) 6.8, Eos % (Auto) 1.1, Baso % (Auto) 0.5, Neut # (Auto) 2.7, Lymph # (Auto) 0.9, [place] # (Auto) 0.3, Eos # (Auto) 0.0, Baso # (Auto) 0.0 12/18/21 20:25: Sodium 136, Potassium 3.7, Chloride 105, Carbon Dioxide 22, Anion Gap 12.7, BUN 20 H, Creatinine 0.90, Estimated Creat Clear 48, Estimated GFR 61, Est GFR ( Amer) 74, Glucose 116 H, Calcium 9.1, Troponin I 0.02 12/18/21 20:25: Magnesium 1.9 12/19/21 05:27: WBC 3.1 L, RBC 3.98 L, Hgb 11.6 L, Hct 35.9 L, MCV 90.2, MCH 29.0, MCHC 32.2, RDW 14.4, Plt Count 90 L, MPV 7.6, Neut % (Auto) 64.6, Lymph % (Auto) 22.9, [place] % (Auto) 10.6 H, Eos % (Auto) 1.2, Baso % (Auto) 0.7, Neut # (Auto) 2.0, Lymph # (Auto) 0.7, [place] # (Auto) 0.3, Eos # (Auto) 0.0, Baso # (Auto) 0.0 12/19/21 05:27: Sodium 137, Potassium 3.7, Chloride 107, Carbon Dioxide 25, Anion Gap 8.7, BUN 19 H, Creatinine 0.90, Estimated Creat Clear 48, Estimated GFR 61, Est GFR ( Amer) 74, Glucose 92 D, Calcium 8.5 I & O for Last 24 hours: Intake & Output 12/17/21 12/18/21 12/19/21 12/20/21 11:59 11:59 11:59 11:59 Intake Total 480 / 480 Balance 480 / 480 Weight 137 lb 12.623 oz - Constitutional no acute distress - *Routine HEENT Exam Head: Present: normocephalic Eye: Present: PERRL ENT: Present: mucous membranes moist - *Routine Neck Exam Present: supple. Absent: lymphadenopathy - *Routine Respiratory Exam Present: CTA bilaterally - *Routine Cardiovascular Exam Present: RRR, murmur - *Routine Abdominal Exam Present: soft, normoactive bowel sounds. Absent: tenderness - *Routine Extremities Exam Absent: cyanosis, clubbing, edema - *Routine Skin Exam Present: warm. Absent: rash - *Routine Neurological Exam Present: alert, oriented X3 Assessment and Plan (1) SOB (shortness of breath) Status: Acute Category: Medical Code(s): R06.02 - Shortness of breath (2) Pulmonary HTN Status: Acute Category: Medical Code(s): I27.20 - Pulmonary hypertension, unspecified (3) Tricuspid regurgitation Status: Acute Qualifiers: Cardiac valve disease etiology: nonrheumatic Qualified Code(s): I36.1 - Nonrheumatic tricuspid (valve) insufficiency Category: Medical Code(s): I07.1 - Rheumatic tricuspid insufficiency (4) HLD (hyperlipidemia) Status: Chronic Qualifiers: Hyperlipidemia type: unspecified Qualified Code(s): E78.5 - Hyperlipidemia, unspecified Category: Medical Code(s): E78.5 - Hyperlipidemia, unspecified (5) HTN (hypertension) Status: Chronic Qualifiers: Hypertension type: essential hypertension Qualified Code(s): I10 - Essential (primary) hypertension Category: Medical Code(s): I10 - Essential (primary) hypertension (6) Atrial fibrillation Status: Chronic Qualifiers: Atrial fibrillation type: unspecified chronic Qualified Code(s): I48.20 - Chronic atrial fibrillation, unspecified Category: Medical Code(s): I48.91 - Unspecified atrial fibrillation (7) Hx of CABG Status: Chronic Category: Surgical Code(s): Z95.1 - Presence of aortocoronary bypass graft (8) CAD (coronary artery disease) Status: Chronic Qualifiers: Coronary Disease-Associated Artery/Lesion type: iroquois artery Nikolai vs. transplanted heart: iroquois heart Associated angina: without angina Qualified Code(s
--- NOTE | 2021-12-19 18:57 | PC.NURSE ---
Pt has done fine this shift. Ambulating w/ standby assist to and from bathroom. Pt has been anxious on and off this shift but has been easily redirected. Pt has c/o N/V multiple times, no emesis noted by this RN or other nursing staff. No other acute changes or complaints, will continue to monitor.
[2021-12-20] VITALS (19 sets, daily range): BP systolic 92–135; BP diastolic 46–70; PULSE 40–84; RESP 14–18; TEMP 36.3–37.1; O2SAT 90–100; BMI 28.3
--- NOTE | 2021-12-20 | IR_ITS ---
APPROVED REPORT Patient Location: Outpatient PROCEDURES Right heart catheterization Left heart catheterization Left ventriculogram Selective coronary angiogram INDICATION New onset atrial fibrillation, Worsening biventricular congestive heart failure, Angina pectoris, History of coronary bypass surgery, Informed consent was obtained prior to the procedure. COMPLICATIONS None Estimated Blood Loss: Less than 10 mls TECHNIQUE One percent lidocaine was used to anesthetize the right groin. The right femoral artery was accessed via the Seldinger technique. A 4-Vietnamese and 7 belarusian sheath was placed in the right femoral artery and vein respectfully. A 7 Vietnamese sheath was introduced and a Fontana-Yari catheter was floated using hemodynamic waveforms in the pulmonary artery, right ventricle , and right atrium. Saturations were obtained in the pulmonary artery and the right atrium. The JR-4 and JL-4 catheter was also used to perform left heart catheterization, left ventriculography and selective coronary angiogram. JR4 catheter was used to perform left internal mammary angiography at the end of the procedure the patient was transferred to the post-op holding area in stable condition for arterial sheath removal. ANGIOGRAPHIC RESULTS The left anterior descending artery Originates from the left coronary cusp and has a stent in the ostial and proximal segment which is widely patent free of in-stent restenosis. Distal to the stent is a 30% concentric stenosis. 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 Increase diuretics 2. DEEPALI will be canceled tomorrow 3. Patient is encouraged to follow-up with her oncologist to better evaluate the bulky lymphadenopathy and known diagnosis of lymphoma 4. Anticoagulation for paroxysmal atrial fibrillation 5. Fluid restriction 6. 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
[2021-12-20 06:19] LABS: Basophils % 0.5 % (0.1-2.0); Eosinophils # 0.1 K/mm3 (0.0-0.4); Hematocrit 35.5 % (37.0-47.0); Hemoglobin 11.4 g/dL (12.2-16.2); Lymphocytes # 0.7 K/mm3 (0.7-4.5); Lymphocytes % 14.3 % (10-50); Mean Corpuscular HGB Conc 32.2 g/dL (31.8-35.4); Mean Corpuscular Hemoglobin 28.7 pg (27.0-31.2); Mean Corpuscular Volume 89.4 fl (81-99); Mean Platelet Volume 8.1 fl (7.4-10.4); Monocytes # 0.4 K/mm3 (0.1-1.0); Monocytes % 7.8 % (1.7-9.3); Neutrophils # 3.5 K/mm3 (1.8-7.8); Neutrophils % 76.5 % (37.0-80.0); Platelet Count 102 K/mm3 (142-424); Red Blood Count 3.97 M/mm3 (4.20-5.40); Red Cell Distribution Width 14.1 % (11.5-17.5); White Blood Count 4.6 K/mm3 (4.8-10.8)
[2021-12-20 06:20] LABS: Chloride 103 mmol/L (98-107)
[2021-12-20 06:21] LABS: Potassium 3.9 mmoL/L (3.5-5.1); Sodium 133 mmol/L (136-145)
[2021-12-20 06:23] LABS: Alanine Aminotransferase 20 U/L (12-78); Anion Gap 10.9 mEq/L (5-15); Aspartate Amino Transferase 43 U/L (14-36); Bilirubin,Unconjugated 1.4 mg/dL (0.0-1.1); Blood Urea Nitrogen 22 mg/dl (7-17); Carbon Dioxide 23 mmol/L (22.0-30.0); Creatinine Clearance Estimated 44 mL/min (50-200); Estimated Glomerular Filt Rate 48 ml/min (>60); GFR (African American) 59 ML/MIN (>60)
[2021-12-20 06:24] LABS: Albumin Level 3.6 g/dl (3.5-5.0); Alkaline Phosphatase 109 U/L (38-126); Bilirubin,Direct 0.7 mg/dl (0.0-0.4); Bilirubin,Indirect 1.5 mg/dL (0.0-0.9); Bilirubin,Total 2.2 mg/dl (0.2-1.3); Calcium 8.2 mg/dl (8.4-10.2); Chol/HDL Ratio 5.5 (1-3.5); Cholesterol 104 mg/dl (140-200); Glucose 89 mg/dl (74-100); HDL Cholesterol 19 mg/dl (40-60); Total Protein,Serum 5.7 g/dl (6.3-8.2); Triglycerides 94 mg/dl (30-150); VLDL Cholesterol 19 mg/dL (0-40)
--- NOTE | 2021-12-20 06:28 | PC.NURSE ---
no acute changes t/o shift, no emesis noted this shift, has complained of a headache and was treated per MAR, up to BR with standby assist, HR 64-84 this shift
[2021-12-20 06:35] LABS: Direct LDL Cholesterol 80.38 mg/dL (100-129)
--- NOTE | 2021-12-20 08:48 | HMH.ACPN2 ---
Internal Medicine - PN: Subj *Date: 12/20/21 *Time: 08:48 Interval history: 76-year-old female patient sitting up in bed resting quietly in no apparent distress. She denies any chest pain or shortness of breath during the night. Discussed plan for right and left heart cath today, she is in agreement with this chest CT revealed widespread mediastinal adenopathy with bilateral axillary adenopathy and we will consult oncology. Exam Vital signs and Labs for Last 24 Hours: Temp Pulse Resp BP Pulse Ox 98.1 F 62 17 100/56 L 96 12/20/21 07:56 12/20/21 07:56 12/20/21 07:56 12/20/21 07:56 12/20/21 07:56 Laboratory Results - last 24 hr 12/20/21 05:21: WBC 4.6 L D, RBC 3.97 L, Hgb 11.4 L, Hct 35.5 L, MCV 89.4, MCH 28.7, MCHC 32.2, RDW 14.1, Plt Count 102 L, MPV 8.1, Neut % (Auto) 76.5, Lymph % (Auto) 14.3, [place] % (Auto) 7.8, Eos % (Auto) 1.0, Baso % (Auto) 0.5, Neut # (Auto) 3.5, Lymph # (Auto) 0.7, [place] # (Auto) 0.4, Eos # (Auto) 0.1, Baso # (Auto) 0.0 12/20/21 05:21: Sodium 133 L, Potassium 3.9, Chloride 103, Carbon Dioxide 23, Anion Gap 10.9, BUN 22 H, Creatinine 1.10 H D, Estimated Creat Clear 44, Estimated GFR 48 L, Est GFR ( Amer) 59 D, Glucose 89, Calcium 8.2 L, Total Bilirubin 2.2 H, Direct Bilirubin 0.7 H, Conjugated Bilirubin 0.0, Indirect Bilirubin 1.5 H, Unconjugated Bilirubin 1.4 H, AST 43 H, ALT 20, Alkaline Phosphatase 109, Total Protein 5.7 L, Albumin 3.6, Triglycerides 94, Cholesterol 104 L, LDL Cholesterol Direct 80.38 L, VLDL Cholesterol 19, HDL Cholesterol 19 L, Cholesterol/HDL Ratio 5.5 H I & O for Last 24 hours: Intake & Output 12/17/21 12/18/21 12/19/21 12/20/21 23:59 23:59 23:59 23:59 Intake Total 960 / 960 Balance 960 / 960 Weight 138 lb 137 lb 12.623 oz 140 lb 9.6 oz - Constitutional no acute distress - *Routine HEENT Exam Head: Present: normocephalic Eye: Present: EOMI ENT: Present: mucous membranes moist - *Routine Neck Exam Present: trachea midline. Absent: tracheal deviation - *Routine Respiratory Exam Present: CTA bilaterally. Absent: accessory muscle use - *Routine Cardiovascular Exam Present: murmur, irregularly irregular - *Routine Abdominal Exam Present: soft, normoactive bowel sounds. Absent: tenderness, firm - *Routine Extremities Exam Present: full ROM, pulses intact. Absent: cyanosis, clubbing - *Routine Skin Exam Present: intact, dry. Absent: cyanosis, erythema - *Routine Neurological Exam Present: alert, oriented X3, moving all extremities. Absent: motor deficit - Routine Psychiatric Exam Present: normal affect, normal thought process, cooperative. Absent: visual hallucinations Assessment and Plan (1) SOB (shortness of breath) Status: Acute Category: Medical Code(s): R06.02 - Shortness of breath (2) Pulmonary HTN Status: Acute Category: Medical Code(s): I27.20 - Pulmonary hypertension, unspecified (3) Tricuspid regurgitation Status: Acute Qualifiers: Cardiac valve disease etiology: nonrheumatic Qualified Code(s): I36.1 - Nonrheumatic tricuspid (valve) insufficiency Category: Medical Code(s): I07.1 - Rheumatic tricuspid insufficiency (4) HLD (hyperlipidemia) Status: Chronic Qualifiers: Hyperlipidemia type: unspecified Qualified Code(s): E78.5 - Hyperlipidemia, unspecified Category: Medical Code(s): E78.5 - Hyperlipidemia, unspecified (5) HTN (hypertension) Status: Chronic Qualifiers: Hypertension type: essential hypertension Qualified Code(s): I10 - Essential (primary) hypertension Category: Medical Code(s): I10 - Essential (primary) hypertension (6) Atrial fibrillation Status: Chronic Qualifiers: Atrial fibrillation type: unspecified chronic Qualified Code(s): I48.20 - Chronic atrial fibrillation, unspecified Category: Medical Code(s): I48.91 - Unspecified atrial fibrillation (7) Hx of CABG Status: Chronic Category: Surgical Code(s
--- NOTE | 2021-12-20 09:58 | PC.NURSE ---
[id number] - Pt to cath lab manager @ this time
--- NOTE | 2021-12-20 10:28 | HMH.PNCARD ---
Subjective Date: 12/20/21 Time: 09:00 Principal diagnosis: chf Interval history: This is a 76-year-old white female who was admitted to the hospital from Dr. Pastrana's office for an acute exacerbation of her diastolic congestive heart failure, pulmonary hypertension and atrial fibrillation with RVR. Her atrial fibrillation is now rate controlled. She states her shortness of breath has improved since getting IV diuretics. She states it is still present but better than it was. Her edema has improved. She denies any fever, chills, nausea, vomiting, diarrhea. The patient had a CT of the chest that shows widespread adenopathy in the thoracic and abdominal areas. The patient has a known history of lymphoma. She follows with Dr. Vargas, oncology, in [facility]. She actually had an appointment on December 19, 2021 but had to cancel that appointment due to being in the hospital. Exam Vital signs and Labs for Last 24 Hours: Temp Pulse Resp BP Pulse Ox 98.1 F 62 17 100/56 L 96 12/20/21 07:56 12/20/21 08:00 12/20/21 07:56 12/20/21 07:56 12/20/21 08:00 Laboratory Results - last 24 hr 12/20/21 05:21: WBC 4.6 L D, RBC 3.97 L, Hgb 11.4 L, Hct 35.5 L, MCV 89.4, MCH 28.7, MCHC 32.2, RDW 14.1, Plt Count 102 L, MPV 8.1, Neut % (Auto) 76.5, Lymph % (Auto) 14.3, [place] % (Auto) 7.8, Eos % (Auto) 1.0, Baso % (Auto) 0.5, Neut # (Auto) 3.5, Lymph # (Auto) 0.7, [place] # (Auto) 0.4, Eos # (Auto) 0.1, Baso # (Auto) 0.0 12/20/21 05:21: Sodium 133 L, Potassium 3.9, Chloride 103, Carbon Dioxide 23, Anion Gap 10.9, BUN 22 H, Creatinine 1.10 H D, Estimated Creat Clear 44, Estimated GFR 48 L, Est GFR ( Amer) 59 D, Glucose 89, Calcium 8.2 L, Total Bilirubin 2.2 H, Direct Bilirubin 0.7 H, Conjugated Bilirubin 0.0, Indirect Bilirubin 1.5 H, Unconjugated Bilirubin 1.4 H, AST 43 H, ALT 20, Alkaline Phosphatase 109, Total Protein 5.7 L, Albumin 3.6, Triglycerides 94, Cholesterol 104 L, LDL Cholesterol Direct 80.38 L, VLDL Cholesterol 19, HDL Cholesterol 19 L, Cholesterol/HDL Ratio 5.5 H I & O for Last 24 hours: Intake & Output 12/17/21 12/18/21 12/19/21 12/20/21 23:59 23:59 23:59 23:59 Intake Total 960 / 960 1608 / 1608 Balance 960 / 960 1608 / 1608 Weight 138 lb 137 lb 12.623 oz 140 lb 9.6 oz - Constitutional no acute distress, average body habitus - *Routine HEENT Exam Head: Present: normocephalic, atraumatic Eye: Present: EOMI, PERRL ENT: Present: mucous membranes moist - *Routine Neck Exam Present: supple, full ROM, normal carotid upstroke. Absent: JVD, carotid bruit, lymphadenopathy - *Routine Respiratory Exam Present: CTA bilaterally - *Routine Cardiovascular Exam Present: Normal S1, Normal S2, murmur, irregularly irregular - *Routine Abdominal Exam Present: soft, normoactive bowel sounds. Absent: tenderness, distended - *Routine Extremities Exam Present: full ROM, pulses intact, normal capillary refill. Absent: cyanosis, clubbing, edema - *Routine Skin Exam Present: intact, warm. Absent: erythema, rash - *Routine Neurological Exam Present: alert, oriented X3, CN II-XII intact. Absent: sensory deficit, motor deficit Progress Note: A&P (1) SOB (shortness of breath) Status: Acute (2) Pulmonary HTN Status: Acute (3) Tricuspid regurgitation Status: Acute (4) HLD (hyperlipidemia) Status: Chronic (5) HTN (hypertension) Status: Chronic (6) Atrial fibrillation Status: Chronic (7) Hx of CABG Status: Chronic (8) CAD (coronary artery disease) Status: Chronic (9) Aortic stenosis Status: Acute (10) Diastolic CHF Status: Acute Assessment and Plan for All Diagnoses:: Plan: 1. The patient is admitted to the hospital from cardiology clinic due to significant shortness of breath. She was found to have an acute exacerbation of diastolic congestive heart failure and pulmonary hypertension. The patient was also in atrial fibrillation with RVR. She was rate
[2021-12-20 12:08] LABS: CATHL Arterial O2 SAT 66 % (90-100); CATHL Venous O2 SAT 65 % (75-80)
--- NOTE | 2021-12-20 13:20 | PC.NURSE ---
Pt back to floor @ 1130. R fem site w/ gauze and tegaderm, C/D/I. Pulses present and equal in all extremities, able to moves limbs w/o difficulty. She is A&Ox4, remains on room air. Denies pain. Daughter is @ bedside. Pt is not able to get OOB until 1345 per skilled laborer staff. Call curiel is w/in reach. No needs @ this time.
--- NOTE | 2021-12-20 16:46 | PC.NURSE ---
Spoke w/ A Mila (case management), verified that it was okay to cancel oncology consult. Pt already has an established oncologist that she sees in [place], no acute need for an oncologist to see pt during this hospital stay.
--- NOTE | 2021-12-20 17:56 | PC.NURSE ---
No acute changes. Remains on room air. A Fib on tely w/ controlled rate 50-60's. Denies chest pain. Pt has been ambulating in room independently w/o safety concerns. No complaints voiced. R fem cath site remains c/d/i. +2 pulses in all extremities. Cap refill <3 sec. No needs @ this time. Call veena w/in reach.
[2021-12-21] VITALS: BP 128/80; PULSE 50; PULSE 61; RESP 18; TEMP 36.8; O2SAT 97
[2021-12-21 04:00] VITALS: BP 116/57; PULSE 50; PULSE 57; RESP 16; TEMP 36.6; O2SAT 90
[2021-12-21 04:53] VITALS: BMI 28.6
[2021-12-21 06:23] VITALS: O2SAT 94
[2021-12-21 06:38] LABS: Chloride 103 mmol/L (98-107)
[2021-12-21 06:39] LABS: Potassium 3.7 mmoL/L (3.5-5.1); Sodium 133 mmol/L (136-145)
[2021-12-21 06:42] LABS: Anion Gap 9.7 mEq/L (5-15); Blood Urea Nitrogen 26 mg/dl (7-17); Carbon Dioxide 24 mmol/L (22.0-30.0); Creatinine Clearance Estimated 41 mL/min (50-200); Estimated Glomerular Filt Rate 44 ml/min (>60); GFR (African American) 53 ML/MIN (>60); Glucose 85 mg/dl (74-100)
[2021-12-21 06:45] LABS: Basophils % 0.8 % (0.1-2.0); Eosinophils # 0.1 K/mm3 (0.0-0.4); Hemoglobin 11.3 g/dL (12.2-16.2); Lymphocytes # 0.9 K/mm3 (0.7-4.5); Lymphocytes % 22.8 % (10-50); Mean Corpuscular HGB Conc 32.4 g/dL (31.8-35.4); Mean Corpuscular Hemoglobin 29.1 pg (27.0-31.2); Mean Corpuscular Volume 89.9 fl (81-99); Monocytes # 0.5 K/mm3 (0.1-1.0); Monocytes % 12.2 % (1.7-9.3); Neutrophils # 2.6 K/mm3 (1.8-7.8); Neutrophils % 62.2 % (37.0-80.0); Platelet Count 98 K/mm3 (142-424); Red Cell Distribution Width 14.5 % (11.5-17.5); White Blood Count 4.1 K/mm3 (4.8-10.8)
[2021-12-21 08:00] VITALS: BP 126/72; PULSE 60; RESP 20; TEMP 36.6; O2SAT 99
--- NOTE | 2021-12-21 08:32 | HMH.PNCARD ---
Subjective Date: 12/21/21 Time: 08:33 Principal diagnosis: chf Interval history: 76-year-old white female in bed in no acute distress. States she feels significantly better since admission. She is anxious to go home today. Exam Vital signs and Labs for Last 24 Hours: Temp Pulse Resp BP Pulse Ox 97.8 F 60 20 126/72 99 12/21/21 08:00 12/21/21 08:00 12/21/21 08:00 12/21/21 08:00 12/21/21 08:00 Laboratory Results - last 24 hr 12/20/21 10:30: ABG O2 Sat (Measured) 66 L, POC VBG O2 Sat (Vel) 65 L 12/21/21 05:32: WBC 4.1 L, RBC 3.90 L, Hgb 11.3 L, Hct 35.0 L, MCV 89.9, MCH 29.1, MCHC 32.4, RDW 14.5, Plt Count 98 L, MPV 8.0, Neut % (Auto) 62.2, Lymph % (Auto) 22.8, [place] % (Auto) 12.2 H, Eos % (Auto) 2.0, Baso % (Auto) 0.8, Neut # (Auto) 2.6, Lymph # (Auto) 0.9, [place] # (Auto) 0.5, Eos # (Auto) 0.1, Baso # (Auto) 0.0 12/21/21 05:32: Sodium 133 L, Potassium 3.7, Chloride 103, Carbon Dioxide 24, Anion Gap 9.7, BUN 26 H, Creatinine 1.20 H, Estimated Creat Clear 41, Estimated GFR 44 L, Est GFR ( Amer) 53 L, Glucose 85, Calcium 8.0 L I & O for Last 24 hours: Intake & Output 12/18/21 12/19/21 12/20/21 12/21/21 11:59 11:59 11:59 11:59 Intake Total 480 / 480 2087 970 / 970 Output Total 1100 / 1100 Balance 480 / 480 2087 -130 / -130 Weight 137 lb 12.623 oz 140 lb 9.6 oz 142 lb 4.8 oz - *Routine Respiratory Exam Present: CTA bilaterally - *Routine Cardiovascular Exam Present: RRR, irregularly irregular - *Routine Neurological Exam Present: alert, oriented X3 Progress Note: A&P (1) SOB (shortness of breath) Status: Acute (2) Pulmonary HTN Status: Acute (3) Tricuspid regurgitation Status: Acute (4) HLD (hyperlipidemia) Status: Chronic (5) HTN (hypertension) Status: Chronic (6) Atrial fibrillation Status: Chronic (7) Hx of CABG Status: Chronic (8) CAD (coronary artery disease) Status: Chronic (9) Aortic stenosis Status: Acute (10) Diastolic CHF Status: Acute Assessment and Plan for All Diagnoses:: Clinically stable from a cardiac standpoint for discharge home. Home medication recommendations: Atorvastatin 20 mg daily Bisoprolol 5 mg daily Lisinopril 2.5 mg daily Lasix 80 mg twice daily Xarelto 20 mg daily Follow-up in our office in 1 to 2 weeks with a BMP.
--- NOTE | 2021-12-21 08:59 | HMH.DCSUM ---
General - General Admission date:: 12/18/21 Discharge date: 12/21/21 HPI HPI: this patient with known cad, a fib and s/p cabg was seen in the cardiology clinic and had a fib with rapid response and abn echo and was admitted for eval and treatment - Hospital Course Hospital Course: Abnormal Lab Results 12/20/21 10:30: ABG O2 Sat (Measured) 66 L, POC VBG O2 Sat (Vel) 65 L 12/21/21 05:32: WBC 4.1 L, RBC 3.90 L, Hgb 11.3 L, Hct 35.0 L, Plt Count 98 L, [place] % (Auto) 12.2 H 12/21/21 05:32: Sodium 133 L, BUN 26 H, Creatinine 1.20 H, Estimated GFR 44 L, Est GFR ( Amer) 53 L, Calcium 8.0 L Ordering Physician: Prasanth Gordillo MD Date of Service: 12/18/21 Procedure(s): XR chest portable Accession Number(s): [id number] cc: Prasanth Gordillo MD; Anabel Cohn MD~ PROCEDURE INFORMATION: Exam: XR Chest Exam date and time: 12/18/2021 8:35 PM Age: 76 years old Clinical indication: Prior surgery; Surgery date: 6+ months; Surgery type: Cabg, 3 cardiac stents. ; Patient HX: Shortness of breath and rapid heart beat. ; Additional info: SOB TECHNIQUE: Imaging protocol: XR of the chest. Views: 1 view. COMPARISON: CR XR CHEST 2V 10/09/2020 2:09 PM FINDINGS: Lungs: Ground-glass and consolidative opacities in the bilateral lower lungs, which may represent subsegmental atelectasis vs infiltrate. Pulmonary vascular congestion without overt pulmonary edema. Pleural spaces: No large pleural effusion. No pneumothorax. Heart/Mediastinum: Cardiomediastinal silhouette is unchanged, accounting for differences in technique. Bones/joints: No acute osseous abnormality. Soft tissues: Unremarkable. IMPRESSION: 1. Ground-glass and consolidative opacities in the bilateral lower lungs, which may represent subsegmental atelectasis vs infiltrate. 2. Pulmonary vascular congestion without overt pulmonary edema. Ordering Physician: Kaleigh Owens APRN Date of Service: 12/19/21 Procedure(s): CT angio chest PE protocol Accession Number(s): [id number] cc: Kaleigh Owens APRN; Prasanth Gordillo MD; Faustino Pineda MD~ FINAL REPORT TECHNIQUE: Then section axial CT images of the chest were obtained with contrast. Three-D reformatted images were also obtained.This study was performed with techniques to keep radiation doses as low as reasonably achievable (ALARA). Individualized dose reduction techniques using automated exposure control or adjustment of mA and/or kV according to the patient''s size were employed. CLINICAL HISTORY: sob FINDINGS: There has been median sternotomy. There is no evidence of pulmonary embolism. There is no evidence of thoracic aortic aneurysm or dissection. There is severe cardiomegaly with marked enlargement of the right atrium. There is bulky mediastinal adenopathy. Right paratracheal adenopathy measures 5.2 cm. AP window adenopathy measures 4.4 cm. Bilateral axillary adenopathy is greater on the left than right. A left axillary lymph node measures up to 42 mm. There is a small right pleural effusion with mild right base atelectasis. There is mild pulmonary ground-glass opacity that may represent edema. Images of the upper abdomen demonstrate upper abdominal adenopathy. There is splenomegaly. IMPRESSION: Severe cardiomegaly. No evidence of pulmonary embolism. Bulky thoracic and abdominal adenopathy with splenomegaly. Findings are most worrisome for lymphoma. Small right pleural effusion. DISCHARGE PLAN: (1) SOB (shortness of breath) (2) Pulmonary HTN (3) Tricuspid regurgitation (4) HLD (hyperlipidemia) (5) HTN (hypertension) (6) Atrial fibrillation (7) Hx of CABG (8) CAD (coronary artery disease) (9) Aortic stenosis (10) Diastolic CHF cardiology consult: Assessment and Plan for All Diagnoses:: Clinically stable from a cardiac standpoint for discharge home. Home medication recommendatio
--- NOTE | 2021-12-21 10:26 | HMH.PHAINT ---
Discharge counseling complete. Informed pt of new meds, changes to previous meds. Informed pt purpose and how to take medications plus potential side effects. Took a few times to explain, but pt understood and had no questions or concerns
== END 2021-12-21 11:35 | disposition home or self-care (01) | DRG 286 ==
PROVIDERS: Internal Medicine; Nurse Practitioner Family; Admitting Provider Emergency Medicine; PCP Emergency Medicine; Visit Provider Emergency Medicine
PROC: 4A023N8 Measurement of Cardiac Sampling and Pressure, Bilateral, Percutaneous Approach (ICD-10-PCS; principal; 2021-12-20 11:00)
DX: I11.0 Hypertensive heart disease with heart failure (principal); I50.33 Acute on chronic diastolic (congestive) heart failure; C85.90 Non-Hodgkin lymphoma, unspecified, unspecified site; I27.20 Pulmonary hypertension, unspecified; E78.5 Hyperlipidemia, unspecified; I48.91 Unspecified atrial fibrillation; Z95.1 Presence of aortocoronary bypass graft; I08.2 Rheumatic disorders of both aortic and tricuspid valves; I25.119 Atherosclerotic heart disease of native coronary artery with unspecified angina pectoris; Z20.822 Contact with and (suspected) exposure to COVID-19
CPT/HCPCS: 36415; 71045; 71250; 71275; 80048; 80061; 80076; 82306; 82810; 83735; 83880; 84439; 84443; 84484; 85025; 93005; 93306; 93460; 94640; 99152; 99153; C1725; C1760; C1769; C1894; C9803; J1644; J2405; Q9967; U0003; U0005

== ENCOUNTER → 2022-01-30 10:38 | Outpatient (CLI) | payer MEDICARE, SELFPAY ==
[2022-01-30 16:55] LABS: Chloride 94 mmol/L (98-107); Potassium 3.2 mmoL/L (3.5-5.1); Sodium 132 mmol/L (136-145)
[2022-01-30 16:58] LABS: Anion Gap 15.2 mEq/L (5-15); Blood Urea Nitrogen 51 mg/dl (7-17); Carbon Dioxide 26 mmol/L (22.0-30.0); Estimated Glomerular Filt Rate 31 ml/min (>60); GFR (African American) 38 ML/MIN (>60)
[2022-01-30 16:59] LABS: Calcium 8.6 mg/dl (8.4-10.2); Glucose 103 mg/dl (74-100)
== END ==
PROVIDERS: Visit Provider Nurse Practitioner Family
DX: I50.30 Unspecified diastolic (congestive) heart failure (principal); R06.02 Shortness of breath
CPT/HCPCS: 36415; 80048

== ENCOUNTER 2023-11-17 13:47 | Outpatient (CLI) | payer MEDICARE, SELFPAY ==
[2023-11-17 14:20] LABS: Basophils % 0.5 % (0.1-2.0); Eosinophils # 0.1 K/mm3 (0.0-0.4); Eosinophils % 0.6 % (0.1-12.0); Hematocrit 37.1 % (37.0-47.0); Hemoglobin 12.7 g/dL (12.2-16.2); Lymphocytes # 2.1 K/mm3 (0.7-4.5); Mean Corpuscular HGB Conc 34.3 g/dL (31.8-35.4); Mean Corpuscular Hemoglobin 30.1 pg (27.0-31.2); Mean Corpuscular Volume 87.8 fl (81-99); Mean Platelet Volume 8.2 fl (7.4-10.4); Monocytes # 0.6 K/mm3 (0.1-1.0); Neutrophils # 5.8 K/mm3 (1.8-7.8); Neutrophils % 67.8 % (37.0-80.0); Platelet Count 150 K/mm3 (142-424); Red Blood Count 4.23 M/mm3 (4.20-5.40); Red Cell Distribution Width 16.2 % (11.5-17.5); White Blood Count 8.5 K/mm3 (4.8-10.8)
[2023-11-17 15:05] LABS: Chloride 92 mmol/L (98-107); Sodium 131 mmol/L (136-145)
[2023-11-17 15:06] LABS: Potassium 3.6 mmoL/L (3.5-5.1)
[2023-11-17 15:08] LABS: Alanine Aminotransferase 22 U/L (12-78); Albumin Level 4.1 g/dl (3.5-5.0); Alkaline Phosphatase 159 U/L (38-126); Anion Gap 11.6 mEq/L (5-15); Aspartate Amino Transferase 36 U/L (14-36); Bilirubin,Indirect 0.9 mg/dL (0.0-0.9); Bilirubin,Total 0.9 mg/dl (0.2-1.3); Bilirubin,Unconjugated 0.9 mg/dL (0.0-1.1); Blood Urea Nitrogen 36 mg/dl (7-17); Calcium 9.2 mg/dl (8.4-10.2); Carbon Dioxide 31 mmol/L (22.0-30.0); Chol/HDL Ratio 3.1 (1-3.5); Cholesterol 100 mg/dl (140-200); Estimated Glomerular Filt Rate 48 ml/min (>60); GFR (African American) 58 ML/MIN (>60); Glucose 91 mg/dl (74-100); HDL Cholesterol 32 mg/dl (40-60); Magnesium 1.7 mg/dl (1.6-2.3); Triglycerides 78 mg/dl (30-150); VLDL Cholesterol 16 mg/dL (0-40)
[2023-11-17 15:20] LABS: Direct LDL Cholesterol 60.87 mg/dL (100-129)
[2023-11-17 15:26] LABS: Free T4 (Free Thyroxine) 1.38 ng/dl (0.78-2.19)
[2023-11-17 15:39] LABS: Thyroid Stimulating Hormone 2.55 uIU/mL (0.465-4.68)
== END 2023-11-17 23:59 ==
PROVIDERS: PCP Physician Assistant Medical; Visit Provider Physician Assistant
DX: E78.5 Hyperlipidemia, unspecified (principal); I25.10 Atherosclerotic heart disease of native coronary artery without angina pectoris; I27.20 Pulmonary hypertension, unspecified; I48.91 Unspecified atrial fibrillation; I50.30 Unspecified diastolic (congestive) heart failure; R06.00 Dyspnea, unspecified; R94.31 Abnormal electrocardiogram [ECG] [EKG]; Z95.1 Presence of aortocoronary bypass graft; Z95.5 Presence of coronary angioplasty implant and graft
CPT/HCPCS: 36415; 80048; 80061; 80076; 83735; 84439; 84443; 85025

== ENCOUNTER 2024-05-25 14:21 | Outpatient (CLI) | payer MEDICARE, SELFPAY ==
[2024-05-25 15:11] LABS: Uric Acid 8.9 mg/dl (2.5-6.2)
[2024-05-25 15:12] LABS: Anion Gap 14.2 mEq/L (5-15); Blood Urea Nitrogen 45 mg/dl (7-17); Carbon Dioxide 27 mmol/L (22.0-30.0); Chloride 91 mmol/L (98-107); Estimated Glomerular Filt Rate 36 ml/min (>60); GFR (African American) 44 ML/MIN (>60); Glucose 100 mg/dl (74-100); Potassium 3.2 mmoL/L (3.5-5.1); Sodium 129 mmol/L (136-145)
[2024-05-25 15:16] LABS: C-Reactive Protein 5.7 mg/L (0-4)
[2024-05-25 15:23] LABS: Erythrocyte Sedimentation Rate 11 mm/hr (0-30)
--- NOTE | 2024-05-25 15:55 | XR_ITS ---
FINAL REPORT CLINICAL HISTORY: pleural effusion, dyspnea COMPARISON: 12/18/2021 FINDINGS: There is a new, moderate to large right effusion. There is atelectasis at the right lung base. There is widening of the mediastinum, adenopathy is not excluded. The cardiac silhouette is unremarkable. IMPRESSION: Interval development of moderate right effusion with widening of the mediastinum. Chest CT follow-up is recommended. Reviewed, Interpreted and Dictated by Vikas Turner MD Transcribed by Kayla Rangel Authenticated and [facility]
[2024-05-27 11:14] LABS: RA Latex Turbid. <10.0 IU/mL (<14.0)
[2024-05-27 14:20] LABS: Anti-Cyclic Citrullinated Pept 1 units (0-19)
[2024-06-21 15:27] LABS: Antinuclear Antibodies (ANA) NEGATIVE; Antinuclear Antibodies, IFA POSITIVE
== END 2024-05-25 23:59 | disposition home or self-care (01) ==
PROVIDERS: Internal Medicine Pulmonary Disease; PCP Physician Assistant Medical; Visit Provider Nurse Practitioner
DX: I27.20 Pulmonary hypertension, unspecified (principal); I50.32 Chronic diastolic (congestive) heart failure; E78.2 Mixed hyperlipidemia; I10 Essential (primary) hypertension; R06.00 Dyspnea, unspecified; I48.20 Chronic atrial fibrillation, unspecified; Z95.1 Presence of aortocoronary bypass graft; Z95.5 Presence of coronary angioplasty implant and graft; I25.10 Atherosclerotic heart disease of native coronary artery without angina pectoris; R94.31 Abnormal electrocardiogram [ECG] [EKG]; J84.9 Interstitial pulmonary disease, unspecified; R06.09 Other forms of dyspnea; J90 Pleural effusion, not elsewhere classified; R06.02 Shortness of breath
CPT/HCPCS: 36415; 71046; 80048; 84550; 85651; 86038; 86140; 86200; 86225; 86235; 86431

== ENCOUNTER 2024-06-03 01:45 | Inpatient (IN) | payer MEDICARE, SELFPAY ==
[2024-06-03] VITALS (10 sets, daily range): BP systolic 104–169; BP diastolic 55–72; PULSE 65–92; RESP 18–20; TEMP 36.4–36.7; O2SAT 92–100; BMI 21.6; BMI 21.5
--- NOTE | 2024-06-03 00:43 | EXP.HP ---
History of Present Illness *Admission Date: 06/03/24 *Reason for visit:: weakness. SOB *History of present illness: This is a 78 years old female with PMHx non-Hodgkin lymphoma, pulmonary hypertension, diastolic CHF, A-fib on chronic anticoagulation, hypertension hyperlipidemia CAD right pleural effusion, presented to [facility] ER complaining for shortness of breath. Patient has been seen twice in the last week for similar reasons. Has recently surgical drained the effussion, with recurrence. Patient was brought to the ER by daughter stating that she is very weak confused and generally not feeling well. Patient alert and oriented x 3, seen forgetful but not confused on exam. Complaining of weakness dizziness and shortness of breath. She denies fever nausea and vomiting but does report some diarrhea after recent diagnosis of UTI with antibiotic treatment. On arrival patient was found to have worsening right pleural effusion hypercalcemia and acute kidney injury., Therefore transfer was requested. Accepted and admitted here for further workup. [facility] Disclaimer: The information contained in this section may have been updated after the patient was seen, as this information can be updated by other users. Medical History (Updated 06/03/24 @ 12:38 by Carlos Damian MD) Pleural effusion on right LVH (left ventricular hypertrophy) Mediastinal lymphadenopathy Hilar lymphadenopathy Chronic respiratory failure with hypoxia Dyspnea on exertion Dizziness Bradycardia Fatigue Atrial fibrillation with RVR Osteoporosis Serum calcium elevated Elevated parathyroid hormone Parathyroid hormone excess Thyroid cyst HLD (hyperlipidemia) HTN (hypertension) Dyspnea Atrial fibrillation CAD (coronary artery disease) Abnormal EKG Surgical History Hx of CABG Stented coronary artery Family History Other Asthma Cancer Heart attack Hypertension Social History (Updated 06/03/24 @ 02:54 by Marsha Mcdonald RN) Smoking Status: Never smoker alcohol intake: never substance use type: denies use current occupational status: retired Travel in the last 8 weeks: None household members: children Review of Systems Review of Systems Review of systems:: pertinent systems reviewed and negative unless documented below Meds Home Medications and Allergies Home Medications ?Medication ?Instructions ?Recorded ?Confirmed ?Type famotidine 20 mg tablet 20 mg PO BID GERD 10/09/20 06/03/24 History fluticasone 250 mcg-salmeterol 50 1 inh inhalation BID 10/09/20 06/03/24 History mcg/dose blistr powdr for inhalation albuterol sulfate 90 mcg/actuation 2 puff inhalation Q4HP PRN 03/12/21 06/03/24 History aerosol inhaler Shortness Of Breath Or Wheezing cholecalciferol (vitamin D3) 25 25 mcg PO DAILY Diet supplement 12/19/21 06/03/24 History mcg (1,000 unit) tablet cyanocobalamin (vitamin B-12) 50 mcg PO DAILY Diet supplement 12/19/21 06/03/24 History 2,500 mcg tablet atorvastatin 20 mg tablet 20 mg PO HS 30 days #30 tabs 12/21/21 06/03/24 Rx metolazone 2.5 mg tablet 2.5 mg PO MOWEFR 05/17/24 06/03/24 History furosemide 80 mg tablet 80 mg PO Q48H 06/03/24 06/03/24 History New Prescriptions to Start Prescriptions: Allergies Allergy/AdvReac Type Severity Reaction Status Date / Time Iodinated Contrast Media Allergy Verified 06/03/24 02:35 azithromycin AdvReac Verified 06/03/24 02:35 cefuroxime AdvReac Verified 06/03/24 02:35 doxycycline AdvReac Verified 06/03/24 02:35 Exam Constitutional Constitutional: mild distress, thin and cooperative *Routine HEENT Exam Head: Present normocephalic and atraumatic Eye: Present EOMI and PERRL ENT: Present mucous membranes moist *Routine Neck Exam Neck: Present supple; Absent lymphadenopathy *Routine Respiratory Exam Respiratory: Present decreased breath sounds, CTA bilaterally, normal respiratory effort, able to speak in complete sentences and symmetric chest movement; Absent respiratory distress *Routine Cardiovascular Exam Cardiovascular: Present Normal S1, Normal S2 and irregularly irregular *Routine Abdominal Exam Abdominal: Present soft and normoactive bowel sounds; Absent tenderness *Routine Rectal Exam Rectal:: deferred *Routine Genitalia Exam Genitalia:: deferred *Routine Extremities Exam Extremities: Present full ROM; Absent cyanosis, clubbing or edema *Routine Skin Exam Skin: Present petechiae and warm; Absent rash *Routine Neurological Exam Neurological: Present alert, oriented X3, normal reflexes and moving all extremities Routine Psychiatric Exam Psychiatric: Present normal thought process and good insight H&P: Result Imaging and Cardiology EKG: Status: image reviewed by me, Preliminary report and final report Chest x-ray: Status: image reviewed by me, Preliminary report and final report CT scan - chest: Status: image reviewed by me, Preliminary report and final report Assessment and Plan *Assessment and plan (1) Serum calcium elevated: Status: Acute Category: Medical Code(s): E83.52 - Hypercalcemia (2) Recurrent right pleural effusion: Status: Acute Category: Medical Code(s): J90 - Pleural effusion, not elsewhere classified (3) SOB (shortness of breath): Status: Acute Category: Medical Code(s): R06.02 - Shortness of breath (4) Acute kidney injury superimposed on CKD: Status: Acute Category: Medical Code(s): N17.9 - Acute kidney failure, unspecified; N18.9 - Chronic kidney disease, unspecified (5) Mediastinal lymphadenopathy: Status: Acute Category: Medical Code(s): R59.0 - Localized enlarged lymph nodes (6) Pulmonary nodules/lesions, multiple: Status: Acute Category: Medical Code(s): R91.8 - Other nonspecific abnormal finding of lung field (7) Non-Hodgkin lymphoma: Status: Acute Category: Medical Code(s): C85.90 - Non-Hodgkin lymphoma, unspecified, unspecified site (8) Diastolic CHF: Status: Acute Qualifiers: Heart failure chronicity: chronic Qualified Code(s): I50.32 - Chronic diastolic (congestive) heart failure Category: Medical Code(s): I50.30 - Unspecified diastolic (congestive) heart failure (9) HTN (hypertension): Status: Chronic Qualifiers: Hypertension type: essential hypertension Qualified Code(s): I10 - Essential (primary) hypertension Category: Medical Code(s): I10 - Essential (primary) hypertension (10) HLD (hyperlipidemia): Status: Chronic Qualifiers: Hyperlipidemia type: mixed hyperlipidemia Qualified Code(s): E78.2 - Mixed hyperlipidemia Category: Medical Code(s): E78.5 - Hyperlipidemia, unspecified (11) Lymphoma: Status: Chronic Qualifiers: Lymphoma type: unspecified type Lymphoma site: unspecified region Qualified Code(s): C85.90 - Non-Hodgkin lymphoma, unspecified, unspecified site Category: Medical Code(s): C85.90 - Non-Hodgkin lymphoma, unspecified, unspecified site Plan 78 years old female with PMHx non-Hodgkin lymphoma, pulmonary hypertension, diastolic CHF, A-fib on chronic anticoagulation, hypertension hyperlipidemia CAD right pleural effusion, presented to [facility] ER complaining for shortness of breath. While was in the ER lab was significant for hyperglycemia 16.9, creatinine of 1.9, hemoglobin 10. 5. CT of the chest was obtained, concerning for a large right pleural effusion with worsening. Numerous small nodules present in the right thigh the upper right nodule are smaller than prior atelectasis in the right middle lobe extensive lymphadenopathy within the mediastinum. This finding were discussed with the referring provider. I agree for patient transferred. Plan is for: -Shortness of breath without hypoxia likely secondary to recurrent right pleural effusion: Recurrent right pleural effusion Pulmonary nodules Mediastinal lymphadenopathy History of non-Hodgkin lymphoma BELEM on CKD. Prerenal likely due to excessive diuresis Hypercalcemia secondary to malignancy versus hemoconcentration Admit patient for inpatient management dispo MedSurg Pulmonary consult. Optimize O2 saturation. Currently on [address] of the chest, CXR and previous records from referring facility reviewed Obtain CBC CMP in the morning. Monitor for serum calcium. Albumin is normal Continue gentle IV hydration 50 MLS per hour x 1 L Monitor off antibiotic Monitor for renal output watch creatinine Continue cardiac telemetry PT OT to eval and treat -History of diastolic CHF hypertension A-fib hyperlipidemia gout Medication regimen reviewed and reconciled Patient on allopurinol and atorvastatin bisoprolol lisinopril rivaroxaban Hold furosemide and diuretic in the setting of BELEM On Protonix for GERD. Cardiac diet. Small frequent portions. High-calorie diet Full code Rounded on patient after nurse practitioner. Personally examined and interviewed patient. Agree with exam findings and care plan as documented. Discussed case with pulmonology. Thoracentesis today. Will send fluid studies thereafter. Continue supplemental oxygen. Holding on diuretics. In regard to her hypercalcemia, received dose of calcitonin nasal spray at [facility]. Will administer dose of zoledronic acid for her hypercalcemia likely related to malignancy. Serial calcium levels, calcium this morning of 14.2. Improved from 16.5 at outside hospital. Repeat level pending this afternoon at 4 PM along with kidney function and electrolytes. Further management pending studies on pleural fluid
--- NOTE | 2024-06-03 00:51 | PC.NURSE ---
received report from SANTOS Farris @ [facility] @ 0000, she informed me she was calling for transport
--- NOTE | 2024-06-03 01:48 | PC.NURSE ---
Patient arrived to floor via stretcher with EMS from [facility] at 01:47.
[2024-06-03] MEDS: 0.9 % SODIUM CHLORIDE 1000ML 1,000 ML 50 ML IV (02:22)
[2024-06-03 04:02] LABS: Troponin I 0.04 ng/ml (0.00-0.034)
--- NOTE | 2024-06-03 05:40 | PC.NURSE ---
Pt arrived to the unit at approximately 2 am. Pt is alert and oriented x4 (daughter states that she has moments of confusion). Pt is currently on 2L of O2 and tolerating it well. Pt is pleasant and has no complaints as of yet. Pt has a skin tear to the left forearm that she states was caused from the removal of an IV dressing at previous facility, Pt also has multiple bruises and scratches to her bilateral lower extremities that she states her dog inflicted. Pt bilateral ankles are swollen +1 however are non pitting. Pt was placed on telemetry d/t A-fib. Pt is tolerating fluids well at this time.
[2024-06-03 06:55] LABS: Alanine Aminotransferase 18 U/L (12-78); Albumin Level 3.1 g/dl (3.5-5.0); Albumin/Globulin Ratio 1.6 (1.1-1.8); Alkaline Phosphatase 103 U/L (38-126); Aspartate Amino Transferase 40 U/L (14-36); Bilirubin,Total 0.6 mg/dl (0.2-1.3); Blood Urea Nitrogen 42 mg/dl (7-17); Carbon Dioxide 29 mmol/L (22.0-30.0); Chloride 98 mmol/L (98-107); Creatinine Clearance Estimated 20 mL/min (50-200); Estimated Glomerular Filt Rate 27 ml/min (>60); GFR (African American) 33 ML/MIN (>60); Glucose 119 mg/dl (74-100); Magnesium 2.1 mg/dl (1.6-2.3); Sodium 131 mmol/L (136-145); Total Protein,Serum 5.1 g/dl (6.3-8.2)
[2024-06-03 06:59] LABS: INR 1.16 (0.9-1.1); Prothrombin Time 12.8 seconds (10.1-12.5)
[2024-06-03 07:04] LABS: Basophils % 0.6 % (0.1-2.0); Eosinophils # 0.1 K/mm3 (0.0-0.4); Eosinophils % 1.3 % (0.1-12.0); Hematocrit 30.2 % (37.0-47.0); Hemoglobin 9.6 g/dL (12.2-16.2); Lymphocytes # 0.6 K/mm3 (0.7-4.5); Lymphocytes % 10.6 % (10-50); Mean Corpuscular HGB Conc 31.9 g/dL (31.8-35.4); Mean Corpuscular Hemoglobin 29.4 pg (27.0-31.2); Mean Corpuscular Volume 92.2 fl (81-99); Mean Platelet Volume 9.1 fl (7.4-10.4); Monocytes # 0.6 K/mm3 (0.1-1.0); Monocytes % 9.6 % (1.7-9.3); Neutrophils # 4.7 K/mm3 (1.8-7.8); Neutrophils % 77.9 % (37.0-80.0); Platelet Count 131 K/mm3 (142-424); Red Blood Count 3.27 M/mm3 (4.20-5.40); Red Cell Distribution Width 17.2 % (11.5-17.5); White Blood Count 6.1 K/mm3 (4.8-10.8)
[2024-06-03 07:06] LABS: Troponin I 0.04 ng/ml (0.00-0.034)
[2024-06-03 07:20] LABS: Calcium 14.2 mg/dl (8.4-10.2)
[2024-06-03] MEDS: ZOLEDRONIC ACID 4 MG in 0.9 % SODIUM CHLORIDE 100 ML 420 MG IV (08:23)
[2024-06-03] MEDS: PANTOPRAZOLE 40MG TABLET 40 MG PO (08:23)
--- NOTE | 2024-06-03 09:40 | SW/DCPLANNER ---
Addendum entered by [facility] 06/15/24 15:33: Elle w/ [facility] stated that patient has been accepted for services. Addendum entered by [facility] 06/15/24 13:14: Patient/family have decided to return home w/ home health services. Patient prefers [facility] for services. Patient information/order has been faxed to [facility]. Patient has also requested a rolling walker from [facility]. I will follow up w/ [facility] once information is reviewed. Patient will discharge home w/ family today. Addendum entered by [facility] 06/14/24 13:47: Hilda w/ [facility] stated they are not able to accept this patient. Alyssa [facility]itia/ [facility] stated that precert is good until 06/16. Addendum entered by [facility] 06/14/24 11:21: Patient is not ready for discharge today. I have updated Alyssa w/ [facility] and faxed updated patient information. Patient/family have also requested that I follow up w/ [facility] to see if a female bed is available. Addendum entered by [facility] 06/11/24 14:58: Per Alyssa this patient has been approved SNF level of care. I have updated MD and he plans to discharge patient tomorrow morning pending lab results. I have updated patient and family. Addendum entered by [facility] 06/09/24 14:58: John w/ [facility] has started auth for this patient. Addendum entered by [facility] 06/09/24 10:12: Patient/family are also agreeable for information to be faxed to [facility], [facility], and [facility]. I will continue to follow up w/ patient, family, MD and facilities. Addendum entered by [facility] 06/09/24 08:50: [facility] is not in network w/ patient's insurance. Patient/family requested information to be faxed to [facility]. Addendum entered by [facility] 06/08/24 16:04: Patient information has been faxed to Ivanna avitia/ [facility] ([phone]). Addendum entered by [facility] 06/08/24 15:57: Hilda avitia/ [facility] stated that she does not have a female bed available at this time. I spoke w/ patient and her daughter regarding other facilities. Patient/family are interested in [facility]: VM has been left w/ admissions at facility. I will continue to follow up. Addendum entered by Dionne Duff 06/08/24 12:31: Updated patient information has been faxed to [facility]. Addendum entered by Dionne Duff 06/07/24 13:06: I have updated Hilda avitia/ [facility] that patient is not ready for discharge at this time. Addendum entered by Dionne Duff 06/04/24 14:28: Per Hilda: if patient is medically stable for discharge over the weekend they can accept. Addendum entered by Dionne Duff 06/04/24 11:33: Per Hilda this patient has been approved for SNF level of care. I have updated patient, family and [facility] that per MD patient will not be ready for discharge till the first of next week. I will continue to follow up. Addendum entered by Dionne Duff 06/03/24 13:24: [facility] stated that she can accept this patient and precert will be started today. Original Note: I spoke w/ this patient and her daughter regarding plans once medically stable for discharge. PT/OT evaluated patient and recommended SNF level of care at time of discharge. Patient is agreeable to placement and prefers to go to [facility]. I will fax patient information to [facility] this AM. Discharge date is unknown at this time.
--- NOTE | 2024-06-03 09:55 | P.CONS_ITS ---
History of Present Illness History of present illness: Ms. Portillo is a 78-year-old female never smoker prior history of multiple pulmonary nodules mediastinal hilar lymphadenopathy calcified, chronic hypoxic respiratory failure questionable rheumatoid arthritis severe pulmonary hypertension based on echocardiogram with RVSP of 78 recently seen in pulmonary clinic for exertional dyspnea due to follow-up with lab work and pulmonary testing admitted to the hospital complaining of worsening shortness of breath and pulmonary was called for further evaluation and management. [facility] Disclaimer: The information contained in this section may have been updated after the patient was seen, as this information can be updated by other users. Medical History (Updated 06/03/24 @ 12:38 by Carlos Damian MD) Pleural effusion on right LVH (left ventricular hypertrophy) Mediastinal lymphadenopathy Hilar lymphadenopathy Chronic respiratory failure with hypoxia Dyspnea on exertion Dizziness Bradycardia Fatigue Atrial fibrillation with RVR Osteoporosis Serum calcium elevated Elevated parathyroid hormone Parathyroid hormone excess Thyroid cyst HLD (hyperlipidemia) HTN (hypertension) Dyspnea Atrial fibrillation CAD (coronary artery disease) Abnormal EKG Surgical History Hx of CABG Stented coronary artery Family History Other Asthma Cancer Heart attack Hypertension Social History (Updated 06/03/24 @ 02:54 by Marsha Mcdonald RN) Smoking Status: Never smoker alcohol intake: never substance use type: denies use current occupational status: retired Travel in the last 8 weeks: None household members: children Review of Systems Constitutional Constitutional: Reports anorexia, Reports body ache(s) and Reports fatigue Eyes Eyes: Denies eye discharge, Denies dry eyes, Denies irritation and Denies itchy eyes ENT Ears, Nose, Mouth, and Throat: Denies epistaxis, Denies facial pain, Denies lip swelling and Denies throat swelling *Cardiovascular Cardiovascular: Reports dyspnea, Reports dyspnea on exertion and Reports orthopnea *Respiratory Respiratory: Reports chest congestion, Reports cough, Reports dyspnea, Reports dyspnea on exertion, Denies excessive phlegm production, Denies hemoptysis and Denies wheezing *Gastrointestinal Gastrointestinal: Denies abdominal pain, Denies belching and Denies cramping *Musculoskeletal Musculoskeletal: Reports back pain, Reports myalgias and Reports other (No small joint swelling or Pain) Psychiatric Psychiatric: Denies homicidal ideation and Denies suicidal ideation Endocrine Endocrine: Reports fatigue and Denies heat intolerance Hematologic/Lymphatic Hematologic/Lymphatic: Denies easy bleeding and Denies lymphadenopathy Allergic/Immunologic Allergic/Immunologic: Denies itchy eyes, Denies lip swelling, Denies throat swelling and Denies wheezing Pulmonology Exam Inpatient Vital signs and Labs for Last 24 Hours: Temp Pulse Resp BP Pulse Ox O2 Del Method O2 Flow Rate 98.0 F 70 20 127/58 L 92 L Nasal Cannula 3 06/03/24 07:59 06/03/24 08:00 06/03/24 07:59 06/03/24 07:59 06/03/24 07:59 06/03/24 09:00 06/03/24 09:00 Laboratory Results - last 24 hr 06/03/24 03:30: Troponin I 0.04 H 06/03/24 06:15: WBC 6.1, RBC 3.27 L, Hgb 9.6 L, Hct 30.2 L, MCV 92.2, MCH 29.4, MCHC 31.9, RDW 17.2, Plt Count 131 L, MPV 9.1, Neut % (Auto) 77.9, Lymph % (Auto) 10.6, [place] % (Auto) 9.6 H, Eos % (Auto) 1.3, Baso % (Auto) 0.6, Neut # (Auto) 4.7, Lymph # (Auto) 0.6 L, [place] # (Auto) 0.6, Eos # (Auto) 0.1, Baso # (Auto) 0.0, PT 12.8 H, INR 1.16 H, Sodium 131 L, Potassium 4.0, Chloride 98, Carbon Dioxide 29, Anion Gap 8.0, BUN 42 H, Creatinine 1.80 H, Estimated Creat Clear 20, Estimated GFR 27 L, Est GFR ( Amer) 33 L, Glucose 119 H, C alcium 14.2 H*, Magnesium 2.1, Total Bilirubin 0.6, AST 40 H, ALT 18, Alkaline Phosphatase 103, Troponin I 0.04 H, Total Protein 5.1 L, Albumin 3.1 L, Globulin 2.0, Albumin/Globulin Ratio 1.6 I & O for Labs for Last 24 Hours: Intake & Output 05/31/24 06/01/24 06/02/24 06/03/24 23:59 23:59 23:59 23:59 Intake Total 230 / 230 Output Total 0 / 0 Balance 230 / 230 Weight 106 lb 15.986 oz Constitutional: Present severe distress Head: Present normocephalic and atraumatic ENT: Present normal exam, normal oropharynx and mucous membranes moist Neck: Present normal inspection and full ROM Respiratory: Present respiratory distress and diminished air movement; Absent wheezes, crackles or able to speak in complete sentences Cardiac: Present S1/S2, Tachycardia and radial pulses present GI: Present soft and distention; Absent tenderness or guarding Rectal (female): Present deferred (female): Present deferred Skin: Present intact; Absent cyanosis or jaundice Neuro: Present alert, awake and oriented x 3 Extremities: Present normal inspection; Absent clubbing or cyanosis Psychiatric: Present normal affect and cooperative Meds Home Medications and Allergies Home Medications ?Medication ?Instructions ?Recorded ?Confirmed ?Type famotidine 20 mg tablet 20 mg PO BID GERD 10/09/20 06/03/24 History fluticasone 250 mcg-salmeterol 50 1 inh inhalation BID 10/09/20 06/03/24 History mcg/dose blistr powdr for inhalation albuterol sulfate 90 mcg/actuation 2 puff inhalation Q4HP PRN 03/12/21 06/03/24 History aerosol inhaler Shortness Of Breath Or Wheezing cholecalciferol (vitamin D3) 25 25 mcg PO DAILY Diet supplement 12/19/21 06/03/24 History mcg (1,000 unit) tablet cyanocobalamin (vitamin B-12) 50 mcg PO DAILY Diet supplement 12/19/21 06/03/24 History 2,500 mcg tablet atorvastatin 20 mg tablet 20 mg PO HS 30 days #30 tabs 12/21/21 06/03/24 Rx metolazone 2.5 mg tablet 2.5 mg PO MOWEFR 05/17/24 06/03/24 History furosemide 80 mg tablet 80 mg PO Q48H 06/03/24 06/03/24 History New Prescriptions to Start Prescriptions: Allergies Allergy/AdvReac Type Severity Reaction Status Date / Time Iodinated Contrast Media Allergy Verified 06/03/24 02:35 azithromycin AdvReac Verified 06/03/24 02:35 cefuroxime AdvReac Verified 06/03/24 02:35 doxycycline AdvReac Verified 06/03/24 02:35 Results Laboratory Findings 06/03/24 06:15 06/03/24 06:15 PT/INR, D-dimer PT 12.8 seconds (10.1-12.5) H 06/03/24 06:15 INR 1.16 (0.9-1.1) H 06/03/24 06:15 Abnormal lab findings: Abnormal Labs 06/03/24 06/03/24 03:30 06:15 RBC 3.27 L Hgb 9.6 L Hct 30.2 L Plt Count 131 L [place] % (Auto) 9.6 H Lymph # (Auto) 0.6 L PT 12.8 H INR 1.16 H Sodium 131 L BUN 42 H Creatinine 1.80 H Estimated GFR 27 L Est GFR ( Amer) 33 L Glucose 119 H Calcium 14.2 H* AST 40 H Troponin I 0.04 H 0.04 H Total Protein 5.1 L Albumin 3.1 L Assessment and Plan *Assessment and plan (1) Recurrent right pleural effusion: Status: Acute Category: Medical Code(s): J90 - Pleural effusion, not elsewhere classified (2) Pulmonary nodules/lesions, multiple: Status: Acute Category: Medical Code(s): R91.8 - Other nonspecific abnormal finding of lung field (3) Pleural effusion on right: Status: Acute Category: Medical Code(s): J90 - Pleural effusion, not elsewhere classified Plan Ms. Portillo is a 78-year-old female never smoker prior history of multiple pulmonary nodules mediastinal hilar lymphadenopathy calcified, chronic hypoxic respiratory failure questionable rheumatoid arthritis severe pulmonary hypertension based on echocardiogram with RVSP of 78 recently seen in pulmonary clinic for exertional dyspnea due to follow-up with lab work and pulmonary testing admitted to the hospital complaining of worsening shortness of breath and pulmonary was called for further evaluation and management. Patient presented to outside hospital during which she was noted to have worsening right pleural effusion hypercalcemia and worsening renal function and was requested to be transferred to [facility]. Chest x-ray on admission showed large right pleural effusion. Afebrile. Hemodynamically stable. No evidence of leukocytosis. BELEM and severe hypercalcemia. Plan: DuoNebs every 6 hours on as-needed basis Will perform thoracentesis Follow-up with vitamin D 25 and 125 levels along with AASHISH levels # Thank you for involving pulmonary in this patient care. Will continue to follow.
--- NOTE | 2024-06-03 09:56 | HMH.PHAINT1 ---
Pharmacy Intervention Comments: HOME MEDICATION LIST VERIFIED USING LISTS FROM OUTPATIENT PHARMACY, CARDIOLOGY OFFICE AND PRIMARY CARE OFFICE.
--- NOTE | 2024-06-03 10:11 | HMH.PTEV ---
Physical Therapy Evaluation Rehab PT IP Evaluation Start: 06/03/24 04:08 Freq: ONCE Status: Active Protocol: Document 06/03/24 09:30 RAD[facility] (Rec: 06/03/24 09:59 [facility] [id number]) Subjective/History History History Per H&P: This is a 78 years old female with PMHx non-Hodgkin lymphoma, pulmonary hypertension, diastolic CHF, A -fib on chronic anticoagulation, hypertension hyperlipidemia CAD right pleural effusion, presented to [facility] ER complaining for shortness of breath. Patient has been seen twice in the last week for similar reasons. Has recently surgical drained the effussion, with recurrence. Patient was brought to the ER by daughter stating that she is very weak confused and generally not feeling well. Patient alert and oriented x 3 , seen forgetful but not confused on exam. Complaining of weakness dizziness and shortness of breath. She denies fever nausea and vomiting but does report some diarrhea after recent diagnosis of UTI with antibiotic treatment. On arrival patient was found to have worsening right pleural effusion hypercalcemia and acute kidney injury., Therefore transfer was requested. Accepted and admitted here for further workup. Subjective Subjective Per pt and pt's daughter report: Lives in a single- story home with 4 ALYSON. Lives alone. Usually ambulates without AD but has recently started using a cane d/t weakness. Denies falls in past 30 days. New diagnosis of cancer in past 12 No months? Rehab PT IP Eval Objective Appearance Patient Behavior Appropriate,Cooperative Patient Orientation Person,Place Difficulty following instructions none Speech Pattern Clear Ambulation Patient Able to Ambulate Yes Ambulation Observation Ambulation Distance (feet) 18 Ambulation Assistive Device None Ambulation Ability Minimal x 1 (25% assist) Balance Ability to Arise Able, uses arms to help Sitting Balance Steady, safe Standing Balance Steady, wide stance Transfers Bed Transfer Ability Supervision/Stand by Sit to Stand Bed Transfer Ability Contact Guard/Hand Hold Rehab PT IP prob,goals,plan Problems Date of Evaluation: 06/03/24 PT IP Problems Bed Mobility,Transfers,Gait, Balance,Safety Rehab Potential Rehab Potential Good Equipment Needs Assistive Devices Rolling / Wheeled Walker Plan PT Intervention Plan Bed Mobility,Transfers,Gait, Balance,Safety,Therapeutic Exercise Other Intervention Plan 1-2 times PT Plan Frequency Daily Duration LOS Discharge Goals Bed Transfer Ability Independent Sit to Stand Chair Transfer Ability Supervision/Stand by Ambulation Assistive Device Rolling Walker Ambulation Distance (feet) 20 Discharge Plan PT Discharge Plan Initial physical therapy evaluation performed. Patient presents below baseline at this time in functional mobility, transfers, and strength. Pt not safe to return home alone at this time d/t current level of functional mobility. PT recommending short-term rehabilitation stay upon d/c from [facility]. Pt may be safe to d/ c home with assistance provided by family and PT services if pt demo's improved mobility while at [facility]. Pt would benefit from skilled PT while at [facility] to prevent further functional decline and maximize safety with mobility . Eval Complexity Eval Charge Codes 73759 - Moderate Complexity PHYSICIAN CERTIFICATION: I certify the specified therapy services for Miroslava Portillo are required, authorized, and reviewed every 30 days.
--- NOTE | 2024-06-03 10:24 | PC.NURSE ---
Radiology notified of planned thoracentesis to be performed at bedside by MD Damian.
--- NOTE | 2024-06-03 10:36 | HMH.OTEV ---
OT Inpatient Evaluation Rehab OT IP Evaluation Start: 06/03/24 04:08 Freq: ONCE Status: Active Protocol: [facility]03[facility]24 10[facility] (Rec: 06/03/24 10:36 [facility] [id number]) Rehab OT IP Assessment Subjective History Pt oriented x 2 on arrival. Pt's daughter present and supportive during therapy evaluation. Per H&P: This is a 78 years old female with PMHx non-Hodgkin lymphoma, pulmonary hypertension, diastolic CHF, A -fib on chronic anticoagulation, hypertension hyperlipidemia CAD right pleural effusion, presented to [facility] ER complaining for shortness of breath. Patient has been seen twice in the last week for similar reasons. Has recently surgical drained the effussion, with recurrence. Patient was brought to the ER by daughter stating that she is very weak confused and generally not feeling well. Patient alert and oriented x 3 , seen forgetful but not confused on exam. Complaining of weakness dizziness and shortness of breath. She denies fever nausea and vomiting but does report some diarrhea after recent diagnosis of UTI with antibiotic treatment. On arrival patient was found to have worsening right pleural effusion hypercalcemia and acute kidney injury., Therefore transfer was requested. Accepted and admitted here for further workup. Subjective I just feel like I can't get my air. Per pt and pt's daughter report: Lives in a single- story home with 4 ALYSON. Lives alone. Usually ambulates without AD but has recently started using a cane d/t weakness. Pt also claims to be independent with all ADLs and most IADLS. 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 Denies falls in past 30 days. Objective Patient Orientation Person,Birthday Right Upper Extremity Gross ROM WFL Left Upper Extremity Gross ROM WFL Transfer Training Sit/Stand Transfer,Sit/Stand/ Step Transfer Assist Level Contact Guard/Hand Hold Chair Transfer Ability Contact Guard/Hand Hold Chair Transfer Technique Sit to/from Ambulatory Rehab OT IP prob,goals,plan Problems Date of Evaluation: 06/03/24 OT IP Problems Bed Mobility,Transfers,Balance ,Self care,Safety Rehab Potential Rehab Potential Good Equipment Needs Assistive Devices Rolling / Wheeled Walker Plan OT intervention Plan Bed Mobility,Transfers,Balance ,Self care,Safety,Therapeutic Exercise OT Plan Frequency Daily Duration LOS Discharge Goals Bed Mobility Ability Standby Assistance Sit to Stand Chair Transfer Ability Supervision/Stand by Chair Transfer Ability Supervision/Stand by Chair Transfer Technique Sit to/from Ambulatory Chair Transfer Assistive Devices Rolling Walker Lower Body Dressing Ability Minimal Assistance Upper Body Dressing Ability Standby Assistance Bathing Ability Minimal Assistance Performing Toilet Hygiene Ability Standby Assistance Overall Commode/Toilet Transfer Ability Standby Assistance Commode/Toilet Transfer Technique Sit to/from Ambulatory Commode/Toilet Transfer Assistive Grab Bars Devices Oral Care Assist Standby Assistance,Contact Guard Decrease in Endurance Yes Discharge Plan OT Discharge Plan Patient presents below baseline at this time in functional mobility, transfers , ADL independence, and strength. Pt not safe to return home alone at this time d/t current level of functional independence. OT recommending short-term rehabilitation stay upon d/c from [facility]. Pt may be safe to d/ c home with assistance provided by family and OT services if pt demo's improvement while at [facility]. Pt would benefit from skilled OT while at [facility] to prevent further functional decline, maximize safety, and increase independence. Eval Complexity Eval Charge Codes 83596 - Moderate Complexity PHYSICIAN CERTIFICATION: I certify the specified therapy services for Miroslava Portillo are required, authorized, and reviewed every 30 days.
--- NOTE | 2024-06-03 11:15 | US_ITS ---
FINAL REPORT CLINICAL HISTORY: Pleural effusion- Right -- THORACENTESIS -- DR HEIDI DAMIAN -- [id number] COMPARISON: None FINDINGS: THORACENTESIS WITH IMAGING GUIDANCE: An ultrasound examination of the lower right hemithorax was performed to identify the site of a right pleural effusion. A single ultrasound image was obtained. The thoracentesis procedure itself was performed by Dr. Damian, and 1720 cc of pleural fluid was withdrawn. No postprocedural ultrasound images were obtained. No postprocedural chest x-ray was submitted for evaluation. IMPRESSION: Thoracentesis at the site of a right pleural effusion was performed by Dr. Damian as described above. Reviewed, Interpreted and Dictated by Adiel Bellamy MD Transcribed by Scarlett Huff Authenticated and [facility]
[2024-06-03 12:01] LABS: Lactate Dehydrogenase 212 U/L (313-618)
--- NOTE | 2024-06-03 12:12 | PC.NURSE ---
notified nurse about b/p
[2024-06-03 12:41] LABS: 25-OH Vitamin D, Total 45.1 ng/mL (30-100)
[2024-06-03 13:44] LABS: Source, Body Fld. Thoracentesis Fluid
[2024-06-03 13:45] LABS: Appearance,Body Fld. Cloudy
--- NOTE | 2024-06-03 13:50 | XR_ITS ---
FINAL REPORT CLINICAL HISTORY: Post procedure COMPARISON: 05/25/2024 FINDINGS: SINGLE-VIEW CHEST There is mild cardiomegaly. Patient is status post median sternotomy. Small right effusion is identified, significantly improved since previous. There is atelectasis at the right base. There is no pneumothorax. IMPRESSION: No evidence of pneumothorax. Reviewed, Interpreted and Dictated by Adiel Bellamy MD Transcribed by Kayla Rangel Authenticated and [facility]
[2024-06-03 14:01] LABS: Volume,Body Fld. 1720 mL
[2024-06-03 14:05] LABS: RBC,Body Fluid < 10 cells/uL (< 10 X 10^3); TNC,Body Fluid 386 cells/uL (< 1000)
[2024-06-03 14:14] LABS: Mononuclear WBCs,Body Fluid 96 %; Polynuclear WBC,Body Fluid 4 %
[2024-06-03 16:26] LABS: Alanine Aminotransferase 17 U/L (12-78); Albumin/Globulin Ratio 1.6 (1.1-1.8); Alkaline Phosphatase 129 U/L (38-126); Anion Gap 8.5 mEq/L (5-15); Aspartate Amino Transferase 41 U/L (14-36); Bilirubin,Total 0.7 mg/dl (0.2-1.3); Blood Urea Nitrogen 45 mg/dl (7-17); Carbon Dioxide 29 mmol/L (22.0-30.0); Chloride 97 mmol/L (98-107); Creatinine Clearance Estimated 21 mL/min (50-200); Estimated Glomerular Filt Rate 29 ml/min (>60); GFR (African American) 35 ML/MIN (>60); Globulin 1.9 g/dL (1.3-3.2); Glucose 114 mg/dl (74-100); Potassium 4.5 mmoL/L (3.5-5.1); Sodium 130 mmol/L (136-145); Total Protein,Serum 4.9 g/dl (6.3-8.2)
[2024-06-03 16:31] LABS: Calcium 13.9 mg/dl (8.4-10.2)
[2024-06-03] MEDS: ACETAMINOPHEN 325MG TAB 650 MG PO (22:30)
[2024-06-04] VITALS (8 sets, daily range): BP systolic 93–128; BP diastolic 41–77; PULSE 65–99; RESP 16–20; TEMP 36.4–36.9; O2SAT 94–100; BMI 21.5
[2024-06-04] MEDS: ACETAMINOPHEN 325MG TAB 650 MG PO (03:10)
--- NOTE | 2024-06-04 03:20 | EXP.PN ---
Subjective *Date: 06/04/24 *Time: 18:05 Interval history: Patient is anxious, dissatisfied with being here wants to go home, daughter is in room also and let me know that her mother had seen a small child with a pig. Patient's main complaint is she wants better food. And she does just want to go home. Exam Data for Last 24 hours Vital signs and Labs for Last 24 Hours: Temp Pulse Resp BP Pulse Ox O2 Del Method O2 Flow Rate 97.6 F 70 18 104/60 L 98 Nasal Cannula 1.5 06/03/24 15:30 06/04/24 00:00 06/03/24 15:30 06/03/24 15:30 06/03/24 15:30 06/04/24 01:00 06/03/24 23:00 Laboratory Results - last 24 hr 06/03/24 03:30: Troponin I 0.04 H 06/03/24 06:15: WBC 6.1, RBC 3.27 L, Hgb 9.6 L, Hct 30.2 L, MCV 92.2, MCH 29.4, MCHC 31.9, RDW 17.2, Plt Count 131 L, MPV 9.1, Neut % (Auto) 77.9, Lymph % (Auto) 10.6, [place] % (Auto) 9.6 H, Eos % (Auto) 1.3, Baso % (Auto) 0.6, Neut # (Auto) 4.7, Lymph # (Auto) 0.6 L, [place] # (Auto) 0.6, Eos # (Auto) 0.1, Baso # (Auto) 0.0, PT 12.8 H, INR 1.16 H, Sodium 131 L, Potassium 4.0, Chloride 98, Carbon Dioxide 29, Anion Gap 8.0, BUN 42 H, Creatinine 1.80 H, Estimated Creat Clear 20, Estimated GFR 27 L, Est GFR ( Amer) 33 L, Glucose 119 H, Calcium 14.2 H*, Magnesium 2.1, Total Bilirubin 0.6, AST 40 H, ALT 18, Alkaline Phosphatase 103, Troponin I 0.04 H, Total Protein 5.1 L, Albumin 3.1 L, Globulin 2.0, Albumin/Globulin Ratio 1.6 06/03/24 11:40: Lactate Dehydrogenase 212 L, 25-OH Vitamin D Total 45.1 08/01/24 12:20: Fluid Source Thoracentesis fluid, Fluid Volume 1720, Fluid Appearance Cloudy, Fluid RBC (Auto) < 10, Fld Tot Nucleated Cell 386, Fld Polynuclear WBCs % 4, Fld Mononuclear WBCs % 96 06/03/24 16:00: Sodium 130 L, Potassium 4.5, Chloride 97 L, Carbon Dioxide 29, Anion Gap 8.5, BUN 45 H, Creatinine 1.70 H, Estimated Creat Clear 21, Estimated GFR 29 L, Est GFR ( Amer) 35 L, Glucose 114 H, Calcium 13.9 H*, Total Bilirubin 0.7, AST 41 H, ALT 17, Alkaline Phosphatase 129 H, Total Protein 4.9 L, Albumin 3.0 L, Globulin 1.9, Albumin/Globulin Ratio 1.6 I & O for Last 24 hours: Intake & Output 06/01/24 06/02/24 06/03/24 06/04/24 23:59 23:59 23:59 23:59 Intake Total 770 / 770 Output Total 0 / 0 Balance 770 / 770 Weight 48.534 kg Microbiology Reports for the Last 24 Hours: Microbiology 06/03/24 12:20 Pleural Fluid Gram Stain - Final Radiology Reports for the Last 24 Hours: X-ray compared to the one in the past shows that pleural effusion is significantly less Constitutional Constitutional: no acute distress, thin and chronically ill appearing *Routine HEENT Exam Head: Present normocephalic ENT: Present mucous membranes moist Comments: Examination of the oral airway showed that the mouth was moist tongue midline no signs of exudate of any kind *Routine Respiratory Exam Respiratory: Present CTA bilaterally and normal respiratory effort Comments: Lungs were clear both lung fried no signs of rales rhonchi or fluid no cough good expansion equally on both sides *Routine Cardiovascular Exam Cardiovascular: Present RRR, Normal S1 and Normal S2 Comments: History of A-fib but on listening to the heart a very regular rhythm kind of a bounding heart sounds very strong *Routine Extremities Exam Extremities: Present normal capillary refill Comments: Patient was sitting in a chair when I arrived I did not have her stand but she moved her legs well and moved her arms through good range of motion. Also was given a sandwich and could eat that without any difficulty and was drinking tea. *Routine Skin Exam Skin: Present intact and dry Comments: Skin may be slightly pale but she was pink, nailbeds look normal *Routine Neurological Exam Neurological: Present alert and oriented X3 Comments: The patient was actually able to answer questions well knew who she was where she was and what she wanted to do. Assessment and Plan *Assessment and plan (1) Hospital psychosis: Status: Acute Category: Medical Code(s): F23 - Brief psychotic disorder (2) Hallucination, visual: Status: Acute Category: Medical Code(s): R44.1 - Visual hallucinations Plan 1. Hospital psychosis: Did not want to add any other medication to the patient at this time I feel the potential for making her worse is a very good possibility. Will repeat the Tylenol. Also the patient has been given a sandwich hopefully she will enjoy this better than her previous meals. Talked with her daughter who was in the room who said that mom had seen a small child playing with a pig. Right now the lady is calm, no severe agitation at the moment. Hoping that with some food the Tylenol will be able to get her back into bed that she may be able to sleep some. 2. Postthoracentesis with abnormal labs: The patient has been under significant stress physically, and mentally for the past several days. Depending state and if it escalates may have to add some medication to help keep her calm her. But at this time I think watchful waiting is all we should do. Nursing staff and the patient's daughter updated on this plan.
--- NOTE | 2024-06-04 04:16 | PC.NURSE ---
78 yo female pt admitted with hypercalcemia and pleural effusion. Pt has had some issues throughout shift with increased confusion at times, restlessness and agitation. She has been medicated with tylenol X 2 during the shift for back pain and generalized discomfort. [address] during shift at 1.5 liters. Daughter has remained at bedside.
[2024-06-04 06:59] LABS: Chloride 98 mmol/L (98-107); Potassium 4.3 mmoL/L (3.5-5.1); Sodium 129 mmol/L (136-145)
[2024-06-04 07:01] LABS: Blood Urea Nitrogen 43 mg/dl (7-17); Creatinine Clearance Estimated 17 mL/min (50-200); Estimated Glomerular Filt Rate 23 ml/min (>60); GFR (African American) 28 ML/MIN (>60)
[2024-06-04 07:02] LABS: Alanine Aminotransferase 17 U/L (12-78); Albumin/Globulin Ratio 1.7 (1.1-1.8); Alkaline Phosphatase 117 U/L (38-126); Anion Gap 6.3 mEq/L (5-15); Aspartate Amino Transferase 35 U/L (14-36); Carbon Dioxide 29 mmol/L (22.0-30.0); Globulin 1.8 g/dL (1.3-3.2); Glucose 115 mg/dl (74-100); Total Protein,Serum 4.8 g/dl (6.3-8.2)
[2024-06-04 07:24] LABS: Basophils # 0.1 K/mm3 (0-0.2); Basophils % 0.7 % (0.1-2.0); Eosinophils # 0.1 K/mm3 (0.0-0.4); Eosinophils % 1.1 % (0.1-12.0); Hematocrit 33.3 % (37.0-47.0); Hemoglobin 10.4 g/dL (12.2-16.2); Lymphocytes # 0.8 K/mm3 (0.7-4.5); Lymphocytes % 10.5 % (10-50); Mean Corpuscular HGB Conc 31.2 g/dL (31.8-35.4); Mean Platelet Volume 8.6 fl (7.4-10.4); Monocytes # 0.7 K/mm3 (0.1-1.0); Monocytes % 8.7 % (1.7-9.3); Neutrophils # 5.9 K/mm3 (1.8-7.8); Neutrophils % 79.2 % (37.0-80.0); Platelet Count 143 K/mm3 (142-424); Red Blood Count 3.58 M/mm3 (4.20-5.40); Red Cell Distribution Width 17.3 % (11.5-17.5); White Blood Count 7.5 K/mm3 (4.8-10.8)
[2024-06-04 07:35] LABS: Calcium 13.4 mg/dl (8.4-10.2)
[2024-06-04] MEDS: LACTATED RINGERS 1000ML 500 ML 250 ML IV ×2 (08:26→14:11)
[2024-06-04] MEDS: PANTOPRAZOLE 40MG TABLET 40 MG PO (08:26)
--- NOTE | 2024-06-04 11:22 | P.PN_ITS ---
Subjective *Date: 06/04/24 *Time: 12:31 Interval history: No acute respiratory events overnight. Patient denies any new respiratory complaints. Pulmonology Exam Inpatient Vital signs and Labs for Last 24 Hours: Temp Pulse Resp BP Pulse Ox O2 Del Method O2 Flow Rate 97.5 F L 66 20 96/41 L 95 Nasal Cannula 2 06/04/24 08:00 06/04/24 08:00 06/04/24 08:00 06/04/24 08:00 06/04/24 08:00 06/04/24 11:00 06/04/24 11:00 Laboratory Results - last 24 hr 06/03/24 11:40: Lactate Dehydrogenase 212 L, 25-OH Vitamin D Total 45.1 06/03/24 12:20: Fluid Source Thoracentesis fluid, Fluid Volume 1720, Fluid Appearance Cloudy, Fluid RBC (Auto) < 10, Fld Tot Nucleated Cell 386, Fld Polynuclear WBCs % 4, Fld Mononuclear WBCs % 96 06/03/24 16:00: Sodium 130 L, Potassium 4.5, Chloride 97 L, Carbon Dioxide 29, Anion Gap 8.5, BUN 45 H, Creatinine 1.70 H, Estimated Creat Clear 21, Estimated GFR 29 L, Est GFR ( Amer) 35 L, Glucose 114 H, Calcium 13.9 H*, Total Bilirubin 0.7, AST 41 H, ALT 17, Alkaline Phosphatase 129 H, Total Protein 4.9 L , Albumin 3.0 L, Globulin 1.9, Albumin/Globulin Ratio 1.6 06/04/24 06:07: WBC 7.5, RBC 3.58 L, Hgb 10.4 L, Hct 33.3 L, MCV 93.0, MCH 29.0, MCHC 31.2 L, RDW 17.3, Plt Count 143, MPV 8.6, Neut % (Auto) 79.2, Lymph % (Auto) 10.5, Smyth % (Auto) 8.7, Eos % (Auto) 1.1, Baso % (Auto) 0.7, Neut # (Auto) 5.9, Lymph # (Auto) 0.8, Smyth # (Auto) 0.7, Eos # (Auto) 0.1, Baso # (Auto) 0.1, Sodium 129 L, Potassium 4.3, Chloride 98, Carbon Dioxide 29, Anion Gap 6.3, BUN 43 H, Creatinine 2.10 H D, Estimated Creat Clear 17, Estimated GFR 23 L, Est GFR ( Amer) 28 L, Glucose 115 H, Calcium 13.4 H*, Magnesium 2.0, Total Bilirubin 1.0, AST 35, ALT 17, Alkaline Phosphatase 117, Total Protein 4.8 L, Albumin 3.0 L, Globulin 1.8, Albumin/Globulin Ratio 1.7 Temp Pulse Resp BP Pulse Ox O2 Del Method O2 Flow Rate 98.0 F 70 20 127/58 L 92 L Nasal Cannula 3 06/03/24 07:59 06/03/24 08:00 06/03/24 07:59 06/03/24 07:59 06/03/24 07:59 06/03/24 09:00 06/03/24 09:00 Laboratory Results - last 24 hr 06/03/24 03:30: Troponin I 0.04 H 06/03/24 06:15: WBC 6.1, RBC 3.27 L, Hgb 9.6 L, Hct 30.2 L, MCV 92.2, MCH 29.4, MCHC 31.9, RDW 17.2, Plt Count 131 L, MPV 9.1, Neut % (Auto) 77.9, Lymph % (Auto) 10.6, Smyth % (Auto) 9.6 H, Eos % (Auto) 1.3, Baso % (Auto) 0.6, Neut # (Auto) 4.7, Lymph # (Auto) 0.6 L, Smyth # (Auto) 0.6, Eos # (Auto) 0.1, Baso # (Auto) 0.0, PT 12.8 H, INR 1.16 H, Sodium 131 L, Potassium 4.0, Chloride 98, Carbon Dioxide 29, Anion Gap 8.0, BUN 42 H, Creatinine 1.80 H, Estimated Creat Clear 20, Estimated GFR 27 L, Est GFR ( Amer) 33 L, Glucose 119 H, Calcium 14.2 H*, Magnesium 2.1, Total Bilirubin 0.6, AST 40 H, ALT 18, Alkaline Phosphatase 103, Troponin I 0.04 H, Total Protein 5.1 L, Albumin 3.1 L, Globulin 2.0, Albumin/Globulin Ratio 1.6 I & O for Labs for Last 24 Hours: Intake & Output 06/01/24 06/02/24 06/03/24 06/04/24 23:59 23:59 23:59 23:59 Intake Total 770 / 770 240 / 240 Output Total 0 / 0 0 / 0 Balance 770 / 770 240 / 240 Weight 106 lb 15.986 oz 106 lb 15.845 oz Intake & Output 05/31/24 06/01/24 06/02/24 06/03/24 23:59 23:59 23:59 23:59 Intake Total 230 / 230 Output Total 0 / 0 Balance 230 / 230 Weight 106 lb 15.986 oz Microbiology Reports for the Last 24 Hours: Microbiology 06/03/24 12:20 Pleural Fluid Gram Stain - Final 06/03/24 12:20 Pleural Fluid Body Fluid Culture - Preliminary Constitutional: Present severe distress Head: Present normocephalic and atraumatic ENT: Present normal exam, normal oropharynx and mucous membranes moist Neck: Present normal inspection and full ROM Respiratory: Present respiratory distress; Absent wheezes, crackles or able to speak in complete sentences Cardiac: Present S1/S2, Tachycardia and radial pulses present GI: Present soft and distention; Absent tenderness or guarding Rectal (female): Present deferred (female): Present deferred Skin: Present intact; Absent cyanosis or jaundice Neuro: Present alert, awake and oriented x 3 Extremities: Present normal inspection; Absent clubbing or cyanosis Psychiatric: Present normal affect and cooperative Assessment and Plan *Assessment and plan (1) Recurrent right pleural effusion: Status: Acute Category: Medical Code(s): J90 - Pleural effusion, not elsewhere classified (2) Pulmonary nodules/lesions, multiple: Status: Acute Category: Medical Code(s): R91.8 - Other nonspecific abnormal finding of lung field (3) Pleural effusion on right: Status: Acute Category: Medical Code(s): J90 - Pleural effusion, not elsewhere classified Plan Ms. Portillo is a 78-year-old female never smoker prior history of multiple pulmonary nodules mediastinal hilar lymphadenopathy calcified, chronic hypoxic respiratory failure questionable rheumatoid arthritis severe pulmonary hypertension based on echocardiogram with RVSP of 78 recently seen in pulmonary clinic for exertional dyspnea due to follow-up with lab work and pulmonary testing admitted to the hospital complaining of worsening shortness of breath and pulmonary was called for further evaluation and management. Patient presented to outside hospital during which she was noted to have worsening right pleural effusion hypercalcemia and worsening renal function and was requested to be transferred to [facility]. Chest x-ray on admission showed large right pleural effusion. Afebrile. Hemodynamically stable. No evidence of leukocytosis. BELEM and severe hypercalcemia. Interval update: Status post thoracentesis, removed 1720 cc. Improving respiratory status on oxygen requirements. Postprocedure chest x-ray likely reexpansion pulmonary edema. Following pleural fluid labs including triglycerides and total cholesterol level as appearance concerning for chylothorax. Labs pending. Will follow. Pleural fluid cell count differential mononuclear predominant. Cytology negative for malignant cells. Follow with Gram stain culture on cholesterol and triglycerides. Preliminary Gram stain no organisms seen. Final cultures pending. Vitamin D levels within normal limits. Plan: DuoNebs every 6 hours on as-needed basis Follow-up with 125 levels along with AASHISH levels Continue oxygen supplementation to maintain O2 saturation goal of 90-95% # Thank you for involving pulmonary in this patient care. Will continue to follow.
--- NOTE | 2024-06-04 12:24 | DIET.NUTRFU ---
Patient triggers for SPCM secondary to poor po intake, appears like she has lost weight in face and extremities. Daughter reports she eats like a bird. Weight is misleading secondary to fluid gains. Thoracentesis procedure was performed by Dr. Damian yesterday, and 1720 cc of pleural fluid was withdrawn. Reviewed menu with daughter and patient, she is on a regular diet, increasing calories and protein by providing high protein/calorie shake with meals along with protein pwd in foods like mashed potatoes and pudding. Nursing to offer snacks between meals, encouarge ensure, cottage cheese, pudding or yogurt. Labs reviewed renal labs are elevated, will continue to monitor po intake-currently only bites at each meal not concerned about protein intake vs kidney fxn. If intake improves may need to re-eval supplements.
[2024-06-04] MEDS: IPRATROPIUM/ALBUTEROL 3 ML NEB IH ×2 (12:44→18:23)
[2024-06-04 15:34] LABS: Angiotensin Converting Enzyme <15 U/L (14-82)
--- NOTE | 2024-06-04 17:52 | PC.NURSE ---
PT IS RESTING IN BED. ALERT AND ORIENTED X4. TOLERATED SITTING UP IN THE CHAIR FOR A FEW HOURS THIS MORNING. APPETITE CONTINUES TO BE POOR. PT HAS BEEN ENCOURAGED TO DRINK HER MILKSHAKES. 1 ASSIST TO GET OOB. SCATTERED ABRASIONS NOTED TO BLE. O2 SATURATION HAS MAINTAINED 90-95% ON 2 L NC. LUNG SOUNDS DIMINISHED WITH SCATTERED WHEEZES. ABDOMEN SOFT/NON TENDER WITH ACTIVE BOWEL SOUNDS. WILL CONTINUE TO MONITOR.
--- NOTE | 2024-06-04 18:05 | P.PN_ITS ---
Subjective *Date: 06/04/24 *Time: 22:56 Interval history: Had some hallucinations overnight. Saw children in her room. Family at bedside. Breathing a little bit better, had an episode of anxiety with dyspnea that has resolved. No fever overnight. Tolerating p.o. intake. Stable on 2 L nasal cannula oxygen Medical Exam Vital signs and Labs for Last 24 Hours: Vital Signs Temp Pulse Pulse Resp BP Pulse Ox O2 Del Method 06/04/24 17:00 Nasal Cannula 06/04/24 16:00 80 06/04/24 14:32 Nasal Cannula 06/04/24 12:47 Nasal Cannula 06/04/24 12:44 69 06/04/24 12:44 72 06/04/24 12:00 90 06/04/24 11:00 Nasal Cannula 06/04/24 08:00 65 06/04/24 08:00 Room Air 06/04/24 08:00 97.5 F L 66 20 96/41 L 95 Nasal Cannula 06/04/24 07:45 Room Air 06/04/24 06:51 Nasal Cannula 06/04/24 05:00 Nasal Cannula 06/04/24 04:00 70 06/04/24 03:00 Nasal Cannula 06/04/24 01:00 Nasal Cannula 06/04/24 00:00 98.4 F 65 16 93/46 L 100 Nasal Cannula 06/04/24 00:00 70 06/03/24 23:00 Nasal Cannula 06/03/24 22:50 Nasal Cannula 06/03/24 21:00 Nasal Cannula 06/03/24 20:00 Nasal Cannula 06/03/24 18:57 Nasal Cannula O2 Flow Rate 06/04/24 17:00 2 06/04/24 16:00 06/04/24 14:32 2 06/04/24 12:47 2 06/04/24 12:44 06/04/24 12:44 06/04/24 12:00 06/04/24 11:00 2 06/04/24 08:00 06/04/24 08:00 06/04/24 08:00 06/04/24 07:45 06/04/24 06:51 1.5 06/04/24 05:00 1.5 06/04/24 04:00 06/04/24 03:00 1.5 06/04/24 01:00 06/04/24 00:00 2 06/04/24 00:00 06/03/24 23:00 1.5 06/03/24 22:50 2 06/03/24 21:00 2 06/03/24 20:00 2 06/03/24 18:57 2 Intake and Output 06/04/24 06/04/24 06/04/24 07:59 15:59 23:59 Intake Total 480 / 1480 1000 / 1480 Output Total 0 / 0 0 / 0 Balance 0 / 1480 480 / 1480 1000 / 1480 Intake: Intake, Oral Amount 480 / 480 Intake, Total IV Amount 1000 / 1000 Lactated Ringers 1000ML 500 ml 500 / 500 @ 250 mls/hr IV .Q2H ONE Rx#: [id number] Lactated Ringers 1000ML 500 ml 500 / 500 @ 250 mls/hr IV .Q2H ONE Rx#: [id number] Output: Output, Urine Amount 0 / 0 0 / 0 Other: Number of Unmeasured Voids 1 Number of Bowel Movements 1 Weight 48.534 kg 48.53 kg Patient Weight 06/04/24 23:59 Weight 48.53 kg Laboratory Results - last 24 hr 06/03/24 11:40: Angiotensin Convert Enz <15 06/04/24 06:07: WBC 7.5, RBC 3.58 L, Hgb 10.4 L, Hct 33.3 L, MCV 93.0, MCH 29.0, MCHC 31.2 L, RDW 17.3, Plt Count 143, MPV 8.6, Neut % (Auto) 79.2, Lymph % (Auto) 10.5, Glasscock % (Auto) 8.7, Eos % (Auto) 1.1, Baso % (Auto) 0.7, Neut # (Auto) 5.9, Lymph # (Auto) 0.8, Glasscock # (Auto) 0.7, Eos # (Auto) 0.1, Baso # (Auto) 0.1, Sodium 129 L, Potassium 4.3, Chloride 98, Carbon Dioxide 29, Anion Gap 6.3, BUN 43 H, Creatinine 2.10 H D, Estimated Creat Clear 17, Estimated GFR 23 L, Est GFR ( Amer) 28 L, Glucose 115 H, Calcium 13.4 H*, Magnesium 2.0, Total Bilirubin 1.0, AST 35, ALT 17, Alkaline Phosphatase 117, Total Protein 4.8 L, Albumin 3.0 L, Globulin 1.8, Albumin/Globulin Ratio 1.7 I & O for Labs for Last 24 Hours: Intake & Output 06/01/24 06/02/24 06/03/24 06/04/24 23:59 23:59 23:59 23:59 Intake Total 770 / 770 1480 / 1480 Output Total 0 / 0 0 / 0 Balance 770 / 770 1480 / 1480 Weight 48.534 kg 48.53 kg Microbiology Reports for the Last 24 Hours: Microbiology 06/03/24 12:20 Pleural Fluid Gram Stain - Final 06/03/24 12:20 Pleural Fluid Body Fluid Culture - Preliminary Constitutional: Present mild distress, thin, chronically ill appearing and cooperative Head: Present atraumatic and normocephalic ENT: Present normal exam Neck: Present normal inspection Respiratory: Present prolonged expiratory phase, rhonchi, wheezes, crackles and normal respiratory effort Cardiac: Present Reg Rate and Rhythm GI: Present soft and normal bowel sounds; Absent distention or tenderness Extremities: Present normal inspection and full ROM Skin: Present intact; Absent erythema Neuro: Present Grossly Intact, alert, awake and moves all extremities Comment:: Oriented to self, confused at times. Assessment and Plan *Assessment and plan (1) Serum calcium elevated: Status: Acute Category: Medical Code(s): E83.52 - Hypercalcemia (2) Recurrent right pleural effusion: Status: Acute Category: Medical Code(s): J90 - Pleural effusion, not elsewhere classified (3) SOB (shortness of breath): Status: Acute Category: Medical Code(s): R06.02 - Shortness of breath (4) Acute kidney injury superimposed on CKD: Status: Acute Category: Medical Code(s): N17.9 - Acute kidney failure, unspecified; N18.9 - Chronic kidney disease, unspecified (5) Mediastinal lymphadenopathy: Status: Acute Category: Medical Code(s): R59.0 - Localized enlarged lymph nodes (6) Pulmonary nodules/lesions, multiple: Status: Acute Category: Medical Code(s): R91.8 - Other nonspecific abnormal finding of lung field (7) Non-Hodgkin lymphoma: Status: Acute Category: Medical Code(s): C85.90 - Non-Hodgkin lymphoma, unspecified, unspecified site (8) Diastolic CHF: Status: Acute Qualifiers: Heart failure chronicity: chronic Qualified Code(s): I50.32 - Chronic diastolic (congestive) heart failure Category: Medical Code(s): I50.30 - Unspecified diastolic (congestive) heart failure (9) HTN (hypertension): Status: Chronic Qualifiers: Hypertension type: essential hypertension Qualified Code(s): I10 - Essential (primary) hypertension Category: Medical Code(s): I10 - Essential (primary) hypertension (10) HLD (hyperlipidemia): Status: Chronic Qualifiers: Hyperlipidemia type: mixed hyperlipidemia Qualified Code(s): E78.2 - Mixed hyperlipidemia Category: Medical Code(s): E78.5 - Hyperlipidemia, unspecified (11) Lymphoma: Status: Chronic Qualifiers: Lymphoma site: unspecified region Lymphoma type: unspecified type Qualified Code(s): C85.90 - Non-Hodgkin lymphoma, unspecified, unspecified site Category: Medical Code(s): C85.90 - Non-Hodgkin lymphoma, unspecified, unspecified site (12) Severe protein-calorie malnutrition: Status: Acute Category: Medical Code(s): E43 - Unspecified severe protein-calorie malnutrition Plan 78 years old female with PMHx non-Hodgkin lymphoma, pulmonary hypertension, diastolic CHF, A-fib on chronic anticoagulation, hypertension hyperlipidemia CAD right pleural effusion, presented to [facility] ER complaining for shortness of breath. While was in the ER lab was significant for hypercalcemia 16.9, creatinine of 1.9, hemoglobin 10. 5. CT of the chest was obtained, concerning for a large right pleural effusion with worsening. Numerous small nodules present in the right thigh the upper right nodule are smaller than prior atelectasis in the right middle lobe extensive lymphadenopathy within the mediastinum. This finding were discussed with the referring provider. Patient transferred to our institution for further management. Underwent thoracentesis yesterday with drainage of 1700 cc of fluid. Breathing better today. Fluid studies suggestive of chylothorax. Remains afebrile. Calcium still remains elevated, necessitating inpatient management. Kidney function slightly worse today. Problems addressed as follows: -Shortness of breath without hypoxia likely secondary to recurrent right pleural effusion: Recurrent right pleural effusion Pulmonary nodules Mediastinal lymphadenopathy History of non-Hodgkin lymphoma BELEM on CKD. Prerenal likely due to excessive diuresis Hypercalcemia secondary to malignancy versus hemoconcentration Continue supplemental oxygen for goal saturation greater 90%. Currently on 2 L White cell count remains normal at 7.5. Repeat CBC, CMP, magnesium ordered for the morning. No indication for antibiotics at this time Given persistent hypercalcemia with a level of 13.4, will administer a liter of fluid today. Repeat CMP ordered for this evening. If remains high will administer another liter and begin diuresis. Pulmonology performed thoracentesis, removed 1720 cc. Improved oxygen status. Monitoring fluid studies. Concern for chylothorax. Negative malignancy on pathology. Kidney function somewhat worse today with BUN 43, creatinine 2.1. Monitoring for improvement with fluids History of diastolic CHF, hypertension, A-fib, hyperlipidemia, gout Medication regimen reviewed and reconciled Patient on allopurinol and atorvastatin Holding lisinopril On Protonix for GERD. Cardiac diet. Small frequent portions. High-calorie diet Full code
[2024-06-04 18:38] LABS: Albumin Level 3.6 g/dl (3.5-5.0); Chloride 94 mmol/L (98-107)
[2024-06-04 18:39] LABS: Potassium 5.1 mmoL/L (3.5-5.1); Sodium 127 mmol/L (136-145)
[2024-06-04 18:41] LABS: Blood Urea Nitrogen 46 mg/dl (7-17); Creatinine Clearance Estimated 18 mL/min (50-200); Estimated Glomerular Filt Rate 24 ml/min (>60); GFR (African American) 29 ML/MIN (>60)
[2024-06-04 18:42] LABS: Alanine Aminotransferase 21 U/L (12-78); Albumin/Globulin Ratio 1.6 (1.1-1.8); Alkaline Phosphatase 180 U/L (38-126); Anion Gap 12.1 mEq/L (5-15); Aspartate Amino Transferase 105 U/L (14-36); Bilirubin,Total 1.3 mg/dl (0.2-1.3); Carbon Dioxide 26 mmol/L (22.0-30.0); Globulin 2.2 g/dL (1.3-3.2); Glucose 149 mg/dl (74-100); Total Protein,Serum 5.8 g/dl (6.3-8.2)
[2024-06-04 18:44] LABS: Calcium 13.1 mg/dl (8.4-10.2)
[2024-06-04] MEDS: 0.9 % SODIUM CHLORIDE 1000ML 1,000 ML 200 ML IV (20:12)
[2024-06-04] MEDS: FUROSEMIDE 40MG/4ML VIAL 40 MG IV (20:12)
[2024-06-05] VITALS (10 sets, daily range): BP systolic 95–130; BP diastolic 58–70; PULSE 69–108; RESP 16–24; TEMP 36.6–36.7; O2SAT 87–100; BMI 22.6
--- NOTE | 2024-06-05 02:31 | PC.NURSE ---
PATIENT NAPS AT SHORT INTERVALS. GRANDDAUGHTER SAYS HER GRANDMA HAS NOT SLEPT AT ALL. MAY CLOSE EYES BRIEFLY BUT THEN AWAKE. THOMAS Briscoe. NOTIFIED RE REQUEST FOR SLEEP AID.
[2024-06-05] MEDS: MELATONIN 5MG TABLET 10 MG PO (02:36)
--- NOTE | 2024-06-05 05:09 | PC.NURSE ---
PATIENT HAS NOT BEEN ABLE TO SLEEP TONIGHT. MELATONIN 10 MG PO INEFFECTIVE. REMAINS IN AFIB CONTROLLED RATE. PLEASANTLY CONFUSED AND COOPERATIVE. GRANDDAUGHTER AT BEDSIDE.02 AT 2LNC. VITAL SIGNS STABLE . AFEBRILE.
[2024-06-05 07:25] LABS: Basophils # 0.1 K/mm3 (0-0.2); Basophils % 0.4 % (0.1-2.0); Eosinophils # 0.1 K/mm3 (0.0-0.4); Eosinophils % 0.4 % (0.1-12.0); Hematocrit 35.3 % (37.0-47.0); Hemoglobin 10.9 g/dL (12.2-16.2); Lymphocytes # 1.1 K/mm3 (0.7-4.5); Lymphocytes % 8.2 % (10-50); Mean Corpuscular HGB Conc 30.9 g/dL (31.8-35.4); Mean Corpuscular Hemoglobin 29.3 pg (27.0-31.2); Mean Corpuscular Volume 94.8 fl (81-99); Mean Platelet Volume 8.5 fl (7.4-10.4); Monocytes # 0.9 K/mm3 (0.1-1.0); Monocytes % 7.2 % (1.7-9.3); Neutrophils # 10.8 K/mm3 (1.8-7.8); Neutrophils % 83.7 % (37.0-80.0); Platelet Count 169 K/mm3 (142-424); Red Blood Count 3.72 M/mm3 (4.20-5.40); Red Cell Distribution Width 17.7 % (11.5-17.5); White Blood Count 12.9 K/mm3 (4.8-10.8)
[2024-06-05 07:31] LABS: Chloride 94 mmol/L (98-107)
[2024-06-05 07:32] LABS: Albumin Level 3.4 g/dl (3.5-5.0); Potassium 4.5 mmoL/L (3.5-5.1); Sodium 128 mmol/L (136-145)
[2024-06-05 07:33] LABS: Magnesium 1.7 mg/dl (1.6-2.3)
[2024-06-05 07:34] LABS: Blood Urea Nitrogen 41 mg/dl (7-17); Creatinine Clearance Estimated 18 mL/min (50-200); Estimated Glomerular Filt Rate 23 ml/min (>60); GFR (African American) 28 ML/MIN (>60)
[2024-06-05 07:35] LABS: Alanine Aminotransferase 18 U/L (12-78); Albumin/Globulin Ratio 1.7 (1.1-1.8); Alkaline Phosphatase 120 U/L (38-126); Anion Gap 11.5 mEq/L (5-15); Aspartate Amino Transferase 39 U/L (14-36); Carbon Dioxide 27 mmol/L (22.0-30.0); Glucose 107 mg/dl (74-100); Total Protein,Serum 5.4 g/dl (6.3-8.2)
[2024-06-05 07:51] LABS: Calcium 12.6 mg/dl (8.4-10.2)
[2024-06-05] MEDS: IPRATROPIUM/ALBUTEROL 3 ML NEB IH ×2 (08:45→16:03)
[2024-06-05] MEDS: FUROSEMIDE 40MG/4ML VIAL 40 MG IV (08:59)
[2024-06-05] MEDS: 0.9 % SODIUM CHLORIDE 1000ML 1,000 ML 200 ML IV (09:00)
[2024-06-05] MEDS: PANTOPRAZOLE 40MG TABLET 40 MG PO (09:00)
[2024-06-05 12:12] LABS: Albumin, Body Fluid 2.5 g/dL (Not Estab.); Glucose, Body Fluid 124 mg/dL (.); LD, Body Fluid 120 IU/L (.); Protein, Body Fluid 3.3 g/dL (.)
--- NOTE | 2024-06-05 14:53 | EXP.ACUTE.PN ---
Subjective *Date: 06/05/24 *Time: 16:53 Interval history: Patient continues to not sleep well. Having intermittent confusion overnight. Anxious today on exam. Occasionally feels short of breath but has improved respiratory exam since admission. Remains afebrile. No nausea or vomiting. Calcium slowly improving. Treated with IV fluids and diuretics last night. Continues to require 2 L nasal cannula oxygen. Medical Exam Vital signs and Labs for Last 24 Hours: Vital Signs Temp Pulse Pulse Resp BP Pulse Ox O2 Del Method 06/05/24 13:00 Nasal Cannula 06/05/24 12:00 70 06/05/24 11:00 Nasal Cannula 06/05/24 09:00 Nasal Cannula 06/05/24 08:00 80 06/05/24 08:00 Nasal Cannula 06/05/24 08:00 97.9 F 78 22 124/63 95 Nasal Cannula 06/05/24 06:49 Nasal Cannula 06/05/24 05:00 Nasal Cannula 06/05/24 04:00 98.1 F 81 16 130/60 96 Nasal Cannula 06/05/24 04:00 79 06/05/24 02:57 Nasal Cannula 06/05/24 01:00 Nasal Cannula 06/05/24 00:54 97.8 F 78 18 124/70 99 Room Air 06/05/24 00:00 69 06/04/24 23:00 Nasal Cannula 06/04/24 21:00 Nasal Cannula 06/04/24 20:00 94 L Nasal Cannula 06/04/24 20:00 80 06/04/24 20:00 98.1 F 87 16 124/75 94 L Nasal Cannula 06/04/24 18:35 Nasal Cannula 06/04/24 18:30 87 06/04/24 18:30 99 H 06/04/24 17:00 Nasal Cannula 06/04/24 16:00 97.9 F 98 H 20 128/77 95 Nasal Cannula 06/04/24 16:00 80 O2 Flow Rate 06/05/24 13:00 2 06/05/24 12:00 06/05/24 11:00 3 06/05/24 09:00 3 06/05/24 08:00 06/05/24 08:00 3 06/05/24 08:00 2 06/05/24 06:49 2 06/05/24 05:00 2 06/05/24 04:00 2 06/05/24 04:00 06/05/24 02:57 2 06/05/24 01:00 2 06/05/24 00:54 06/05/24 00:00 06/04/24 23:00 2 06/04/24 21:00 2 06/04/24 20:00 2 06/04/24 20:00 06/04/24 20:00 2 06/04/24 18:35 2 06/04/24 18:30 06/04/24 18:30 06/04/24 17:00 2 06/04/24 16:00 2 06/04/24 16:00 Intake and Output 06/04/24 06/05/24 06/05/24 23:59 07:59 15:59 Intake Total 1340 / 2060 960 / 1200 240 / 1200 Output Total 400 / 500 175 / 285 110 / 285 Balance 940 / 1560 785 / 915 130 / 915 Intake: Intake, Oral Amount 340 / 1060 460 / 700 240 / 700 Intake, Total IV Amount 1000 / 1000 500 / 500 0.9 % Sodium Chloride 1000ML 1, 500 / 500 000 ml @ 200 mls/hr IV .Q5H LISA Rx#:[id number] Lactated Ringers 1000ML 500 ml 500 / 500 @ 250 mls/hr IV .Q2H ONE Rx#: [id number] Lactated Ringers 1000ML 500 ml 500 / 500 @ 250 mls/hr IV .Q2H ONE Rx#: [id number] Output: Output, Urine Amount 400 / 500 175 / 285 110 / 285 Other: Number of Unmeasured Voids 0 1 Number of Bowel Movements 1 Weight 50.893 kg Patient Weight 06/05/24 23:59 Weight 50.893 kg Laboratory Results - last 24 hr 06/03/24 11:40: Angiotensin Convert Enz <15 06/03/24 12:20: Fluid Glucose 124, Fluid Total Protein 3.3, Fluid Albumin 2.5, Fluid LDH 120 06/04/24 18:20: Sodium 127 L, Potassium 5.1, Chloride 94 L, Carbon Dioxide 26, Anion Gap 12.1, BUN 46 H, Creatinine 2.00 H, Estimated Creat Clear 18, Estimated GFR 24 L, Est GFR ( Amer) 29 L, Glucose 149 H D, Calcium 13.1 H*, Total Bilirubin 1.3, AST 105 H D, ALT 21, Alkaline Phosphatase 180 H, Total Protein 5.8 L, Albumin 3.6 D, Globulin 2.2, Albumin/Globulin Ratio 1.6 06/05/24 06:35: WBC 12.9 H D, RBC 3.72 L, Hgb 10.9 L, Hct 35.3 L, MCV 94.8, MCH 29.3, MCHC 30.9 L, RDW 17.7 H, Plt Count 169, MPV 8.5, Neut % (Auto) 83.7 H, Lymph % (Auto) 8.2 L, [place] % (Auto) 7.2, Eos % (Auto) 0.4, Baso % (Auto) 0.4, Neut # (Auto) 10.8 H, Lymph # (Auto) 1.1, [place] # (Auto) 0.9, Eos # (Auto) 0.1, Baso # (Auto) 0.1, Sodium 128 L, Potassium 4.5, Chloride 94 L, Carbon Dioxide 27, Anion Gap 11.5, BUN 41 H, Creatinine 2.10 H, Estimated Creat Clear 18, Estimated GFR 23 L, Est GFR ( Amer) 28 L, Glucose 107 H D, Calcium 12.6 H*, Magnesium 1.7 D, Total Bilirubin 1.0, AST 39 H D, ALT 18, Alkaline Phosphatase 120, Total Protein 5.4 L, Albumin 3.4 L, Globulin 2.0, Albumin/Globulin Ratio 1.7 I & O for Labs for Last 24 Hours: Intake & Output 06/02/24 06/03/24 06/04/24 06/05/24 23:59 23:59 23:59 23:59 Intake Total 770 / 770 1820 / 2060 1200 / 1200 Output Total 0 / 0 400 / 500 285 / 285 Balance 770 / 770 1420 / 1560 915 / 915 Weight 48.534 kg 48.53 kg 50.893 kg Constitutional: Present mild distress, thin, chronically ill appearing and cooperative Head: Present atraumatic and normocephalic ENT: Present normal exam Neck: Present normal inspection Respiratory: Present prolonged expiratory phase, rhonchi, wheezes, crackles and normal respiratory effort Cardiac: Present Reg Rate and Rhythm GI: Present soft and normal bowel sounds; Absent distention or tenderness Extremities: Present normal inspection and full ROM Skin: Present intact; Absent erythema Neuro: Present Grossly Intact, alert, awake and moves all extremities Comment:: Oriented to self, confused at times. Anxious Assessment and Plan *Assessment and plan (1) Serum calcium elevated: Status: Acute Category: Medical Code(s): E83.52 - Hypercalcemia (2) Recurrent right pleural effusion: Status: Acute Category: Medical Code(s): J90 - Pleural effusion, not elsewhere classified (3) SOB (shortness of breath): Status: Acute Category: Medical Code(s): R06.02 - Shortness of breath (4) Acute kidney injury superimposed on CKD: Status: Acute Category: Medical Code(s): N17.9 - Acute kidney failure, unspecified; N18.9 - Chronic kidney disease, unspecified (5) Mediastinal lymphadenopathy: Status: Acute Category: Medical Code(s): R59.0 - Localized enlarged lymph nodes (6) Pulmonary nodules/lesions, multiple: Status: Acute Category: Medical Code(s): R91.8 - Other nonspecific abnormal finding of lung field (7) Non-Hodgkin lymphoma: Status: Acute Category: Medical Code(s): C85.90 - Non-Hodgkin lymphoma, unspecified, unspecified site (8) Diastolic CHF: Status: Acute Qualifiers: Heart failure chronicity: chronic Qualified Code(s): I50.32 - Chronic diastolic (congestive) heart failure Category: Medical Code(s): I50.30 - Unspecified diastolic (congestive) heart failure (9) HTN (hypertension): Status: Chronic Qualifiers: Hypertension type: essential hypertension Qualified Code(s): I10 - Essential (primary) hypertension Category: Medical Code(s): I10 - Essential (primary) hypertension (10) HLD (hyperlipidemia): Status: Chronic Qualifiers: Hyperlipidemia type: mixed hyperlipidemia Qualified Code(s): E78.2 - Mixed hyperlipidemia Category: Medical Code(s): E78.5 - Hyperlipidemia, unspecified (11) Lymphoma: Status: Chronic Qualifiers: Lymphoma type: unspecified type Lymphoma site: unspecified region Qualified Code(s): C85.90 - Non-Hodgkin lymphoma, unspecified, unspecified site Category: Medical Code(s): C85.90 - Non-Hodgkin lymphoma, unspecified, unspecified site (12) Severe protein-calorie malnutrition: Status: Acute Category: Medical Code(s): E43 - Unspecified severe protein-calorie malnutrition Plan 78 years old female with PMHx non-Hodgkin lymphoma, pulmonary hypertension, diastolic CHF, A-fib on chronic anticoagulation, hypertension hyperlipidemia CAD right pleural effusion, presented to [facility] ER complaining for shortness of breath. While was in the ER lab was significant for hypercalcemia 16.9, creatinine of 1.9, hemoglobin 10. 5. CT of the chest was obtained, concerning for a large right pleural effusion with worsening. Numerous small nodules present in the right thigh the upper right nodule are smaller than prior atelectasis in the right middle lobe extensive lymphadenopathy within the mediastinum. This finding were discussed with the referring provider. Patient transferred to our institution for further management. Underwent thoracentesis 06/03 with drainage of 1700 cc of fluid. Breathing better today. Fluid studies suggestive of chylothorax. Remains afebrile. Calcium still remains elevated, necessitating inpatient management. Kidney function bnormal but stable today. Problems addressed as follows: -Shortness of breath without hypoxia likely secondary to recurrent right pleural effusion: Recurrent right pleural effusion Pulmonary nodules Mediastinal lymphadenopathy History of non-Hodgkin lymphoma BELEM on CKD. Prerenal likely due to excessive diuresis Hypercalcemia secondary to malignancy versus hemoconcentration Continue supplemental oxygen for goal saturation greater 90%. Currently on 2 L White cell count elevated today to 12.9. In light of her pleural effusion, respiratory symptoms, will empirically add levofloxacin 750 mg every 48 hours. Renally dosed. Blood cultures obtained. - Repeat CBC, CMP, magnesium ordered for the morning. Given persistent hypercalcemia with a level of 12.6, improved from 13.4 yesterday. Will administer another liter of fluid today along with 40 mg IV Lasix. Repeat CMP this evening. Will consider further treatment pending response Pulmonology performed thoracentesis 06/03, removed 1720 cc. Improved oxygen status. Monitoring fluid studies. Concern for chylothorax. Negative malignancy on pathology. Creatinine 2.1, BUN 41. Same as yesterday. Monitor for improvement with treatment with fluids and diuretics. History of diastolic CHF, hypertension, A-fib, hyperlipidemia, gout Medication regimen reviewed and reconciled Patient on allopurinol and atorvastatin On Protonix for GERD. Cardiac diet. Small frequent portions. High-calorie diet Full code
[2024-06-05] MEDS: LEVOFLOXACIN/D5W 750 MG/150 ML 750 MG/150 ML PIGGYBACK 100 MG IV (15:18)
[2024-06-05 15:37] LABS: Albumin Level 3.4 g/dl (3.5-5.0); Chloride 98 mmol/L (98-107); Potassium 4.2 mmoL/L (3.5-5.1); Sodium 128 mmol/L (136-145)
[2024-06-05 15:39] LABS: Blood Urea Nitrogen 44 mg/dl (7-17); Creatinine Clearance Estimated 20 mL/min (50-200); Estimated Glomerular Filt Rate 26 ml/min (>60); GFR (African American) 31 ML/MIN (>60)
[2024-06-05 15:40] LABS: Alanine Aminotransferase 20 U/L (12-78); Albumin/Globulin Ratio 1.7 (1.1-1.8); Alkaline Phosphatase 108 U/L (38-126); Anion Gap 11.2 mEq/L (5-15); Aspartate Amino Transferase 46 U/L (14-36); Bilirubin,Total 0.8 mg/dl (0.2-1.3); Calcium 11.9 mg/dl (8.4-10.2); Carbon Dioxide 23 mmol/L (22.0-30.0); Glucose 132 mg/dl (74-100); Total Protein,Serum 5.4 g/dl (6.3-8.2)
[2024-06-05] MEDS: BUMETANIDE 1MG/4ML VIAL 1 MG IV ×2 (16:39→19:40)
[2024-06-05] MEDS: LORazepam 0.5MG TABLET 0.25 MG PO (16:46)
--- NOTE | 2024-06-05 17:33 | PC.NURSE ---
pt is up to chair with family at bs no requests voiced at this time. call light is within reach.
--- NOTE | 2024-06-05 17:35 | PC.NURSE ---
Pt alert to self. Up to bedside chair most of shift. Pt ambulating with assistance to bedside toilet. Pt awake most of the day, Dr. Yadav requests that the pt is given quiet time tonight to get some rest with lights out at 10 and to skip 12pm vitals. Pt had one episode where she was anxious but was medicated per JAN and is now resting comfortably in bedside chair with granddaughter in room.
--- NOTE | 2024-06-05 18:24 | PC.NURSE ---
Pt ate only a few bites of dinner, pt started to get more anxious and with assistance got into bed and got out of breath. Pt increased from 2L to 3L NC and O2 went up to 95%. Pt was able to calm down with some deep breaths and comforting from family.
--- NOTE | 2024-06-05 18:40 | CT_ITS ---
PROCEDURE INFORMATION: Exam: CT Chest Without Contrast; Diagnostic Exam date and time: 06/05/2024 7:08 PM Age: 79 years old Clinical indication: Shortness of breath; Additional info: Dyspnea TECHNIQUE: Imaging protocol: Diagnostic computed tomography of the chest without contrast. Radiation optimization: All CT scans at this facility use at least one of these dose optimization techniques: automated exposure control; mA and/or kV adjustment per patient size (includes targeted exams where dose is matched to clinical indication); or iterative reconstruction. COMPARISON: CT ANGIO CHEST PE PROTOCOL 12/19/2021 11:15 AM FINDINGS: Lungs: Indeterminate left upper lobar density measuring 1.0 cm (series 4, image 18). Compressive subsegmental atelectasis of right lung. Patchy left lower and upper lobar subsegmental atelectasis. Pleural spaces: Large right pleural effusion. Tiny left pleural effusion. Heart: Unremarkable. No cardiomegaly. No pericardial effusion. Coronary arteries: Atherosclerotic calcification of coronary arteries. Mediastinal space: Unremarkable. Lymph nodes: Poorly defined, confluent mediastinal and hilar lymphadenopathy. Vasculature: Unremarkable. No aortic aneurysm. Bones/joints: Unremarkable. No acute fracture. Soft tissues: Unremarkable. IMPRESSION: 1. Bilateral pleural effusions, [id number]-left with compressive subsegmental atelectasis. 2. Mediastinum, hilar lymphadenopathy. 3. Indeterminate left upper lobar density. Although possibly representing infectious/inflammatory infiltration, cannot exclude mass lesion. Recommend follow-up to document resolution on treatment.
[2024-06-05] MEDS: ENOXAPARIN 40MG/0.4ML SYRINGE 40 MG SQ (18:57)
--- NOTE | 2024-06-05 20:04 | PC.NURSE ---
Amena performing thoracentesis at bedside at this time.
--- NOTE | 2024-06-05 20:20 | PC.NURSE ---
Procedure Note: Time out performed 1947. Staff in room: Dr Henning, Lars Menon RN 1950: Procedure started 1954: Procedure ended Patient tolerated well without complications. VSS, BHASKAR. Handoff report after procedure given to primary SANTOS PlunkettT-Centesis 6 Fr Cath Drainage Tray used. Yellow sticker given to varnish melterSANTOS Geiger.
--- NOTE | 2024-06-05 20:29 | PC.NURSE ---
Bedside Thoracentesis, 1300ml drained, pig tail drain left in place to drain overnight
--- NOTE | 2024-06-05 20:51 | P.EN_ITS ---
I was contacted by Dr. Yadav and given a brief history on this patient. 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 Patient had chylous pleural effusion drained approximately 48 hours prior for which it appears to have reaccumulated. CT imaging conducted today reviewed by me, large pleural effusion on the right. Given this patient und erwent safety centesis catheter placement with local numbing and was dressed in place to drain at bedside. Total amount drained with pending at transition of care to Dr. Yadav at bedside. Procedure: Procedure performed was thoracentesis. Procedure performed by Geoffrey Henning. CT imaging reviewed by me prior to conducting procedure. Informed consent obtained by surrogate decision maker. Using anatomical landmarks and sterile technique the fourth intercostal space anterior axillary line was located along the line from the inframammary fold. Lidocaine 1% was infected into the skin and subcutaneous tissue. Punctate incision made with 11 blade safety centesis catheter advanced while aspirating until cloudy fluid was aspirated. Catheter was advanced over the needle, needle removed, wound was dressed at bedside. Patient tolerated the procedure without immediate complication.
[2024-06-06] VITALS (13 sets, daily range): BP systolic 85–147; BP diastolic 44–99; PULSE 59–104; RESP 16–20; TEMP 36.7–37.6; O2SAT 97–100; BMI 22.9
--- NOTE | 2024-06-06 05:25 | PC.NURSE ---
At shift change thoracentesis was done at the bedside. Since that the chandler has been resting much better. She has not complained once of being SOB or smothering. Per Dr. Yadav her pig tail drain was to be clammed once the bag reached 500ml. That was due to her totally draining 1500ml which he stated was about what they drained the other day and in the AM he would come in an reassess if we needed to drain more. Patient has had family visit through the night and a daughter POA has remained at bedside. Right sided Pig tail drain is still in place. Chandler is currently on 2 LNC sating 100%, daughter stated that she normally wore 2L NC to sleep. I anticipate dayshift to be able to take that off of her when she awakens this morning. No other acute events through the night.
[2024-06-06 08:05] LABS: Basophils % 0.7 % (0.1-2.0); Eosinophils % 0.1 % (0.1-12.0); Hematocrit 29.1 % (37.0-47.0); Hemoglobin 9.2 g/dL (12.2-16.2); Lymphocytes # 0.4 K/mm3 (0.7-4.5); Mean Corpuscular HGB Conc 31.5 g/dL (31.8-35.4); Mean Corpuscular Hemoglobin 29.1 pg (27.0-31.2); Mean Corpuscular Volume 92.3 fl (81-99); Mean Platelet Volume 8.7 fl (7.4-10.4); Monocytes # 0.4 K/mm3 (0.1-1.0); Monocytes % 8.1 % (1.7-9.3); Neutrophils # 4.6 K/mm3 (1.8-7.8); Neutrophils % 84.1 % (37.0-80.0); Platelet Count 139 K/mm3 (142-424); Red Blood Count 3.15 M/mm3 (4.20-5.40); Red Cell Distribution Width 17.5 % (11.5-17.5); White Blood Count 5.5 K/mm3 (4.8-10.8)
[2024-06-06 08:20] LABS: NT Pro Brain Natriuretic Pep. 15800 pg/mL (0-450)
[2024-06-06 08:21] LABS: Chloride 96 mmol/L (98-107)
[2024-06-06 08:22] LABS: Albumin Level 2.6 g/dl (3.5-5.0); Potassium 4.3 mmoL/L (3.5-5.1); Sodium 127 mmol/L (136-145)
[2024-06-06 08:24] LABS: Blood Urea Nitrogen 46 mg/dl (7-17); Creatinine Clearance Estimated 19 mL/min (50-200); Estimated Glomerular Filt Rate 24 ml/min (>60); GFR (African American) 29 ML/MIN (>60); Magnesium 1.4 mg/dl (1.6-2.3)
[2024-06-06 08:25] LABS: Alanine Aminotransferase 13 U/L (12-78); Albumin/Globulin Ratio 1.4 (1.1-1.8); Alkaline Phosphatase 95 U/L (38-126); Anion Gap 10.3 mEq/L (5-15); Aspartate Amino Transferase 32 U/L (14-36); Bilirubin,Total 0.8 mg/dl (0.2-1.3); Calcium 11.2 mg/dl (8.4-10.2); Carbon Dioxide 25 mmol/L (22.0-30.0); Globulin 1.8 g/dL (1.3-3.2); Glucose 81 mg/dl (74-100); Total Protein,Serum 4.4 g/dl (6.3-8.2)
--- NOTE | 2024-06-06 09:12 | XR_ITS ---
PROCEDURE INFORMATION: Exam: XR Chest Exam date and time: 06/06/2024 9:26 AM Age: 79 years old Clinical indication: Other: Effusion TECHNIQUE: Imaging protocol: Radiologic exam of the chest. Views: 1 view. COMPARISON: CT CHEST WO CON 06/05/2024 7:08 PM FINDINGS: Tubes, catheters and devices: Pigtail chest tube at the right base. Lungs: New ovoid opacity in the right mid lung zone which may be partially loculated pleural fluid. Decreased right layering pleural effusion. Pleural spaces: No pneumothorax. Small left pleural effusion. Heart/Mediastinum: Unremarkable. No cardiomegaly. Bones/joints: Unremarkable. IMPRESSION: 1. New ovoid opacity in the right mid lung zone which may be partially loculated pleural fluid. Decreased right layering pleural effusion. 2. Pigtail chest tube at the right base. 3. Small left pleural effusion.
[2024-06-06] MEDS: PANTOPRAZOLE 40MG TABLET 40 MG PO (09:21)
[2024-06-06] MEDS: FLUTICASONE/SALMETEROL 250/50MCG DISKUS 1 PUFF IH ×2 (09:55→23:55)
[2024-06-06] MEDS: LACTATED RINGERS 1000ML 500 ML 250 ML IV (11:10)
[2024-06-06] MEDS: MAGNESIUM SULFATE IN WATER 2 GM/50 ML PIGGYBACK IV ×2 (11:10→16:19)
--- NOTE | 2024-06-06 12:55 | EXP.ACUTE.PN ---
Subjective *Date: 06/06/24 *Time: 12:55 Interval history: More interactive on exam this morning. Does not appear to be in the same level of respiratory distress. Ate breakfast. Daughter at bedside. Mild pain with chest tube site. No fever overnight. Blood pressure little soft. Heart rate improved in the 80s. Improved saturations on nasal cannula oxygen. Currently on 2 L oxygen. No nausea or vomiting. Able to answer questions appropriately today Medical Exam Vital signs and Labs for Last 24 Hours: Vital Signs Temp Pulse Pulse Resp BP Pulse Ox O2 Del Method 06/06/24 12:47 Nasal Cannula 06/06/24 12:00 98.6 F 06/06/24 12:00 75 20 85/56 L 100 Nasal Cannula 06/06/24 11:00 Nasal Cannula 06/06/24 10:00 82 18 90/44 L 100 Nasal Cannula 06/06/24 08:13 Nasal Cannula 06/06/24 08:00 75 06/06/24 08:00 Nasal Cannula 06/06/24 08:00 98.7 F 06/06/24 08:00 74 18 96/45 L 100 Nasal Cannula 06/06/24 06:55 Nasal Cannula 06/06/24 06:00 71 20 147/98 H 100 Nasal Cannula 06/06/24 05:00 98.1 F 06/06/24 05:00 Nasal Cannula 06/06/24 04:00 96 H 06/06/24 04:00 86 20 125/99 H 100 Nasal Cannula 06/06/24 04:00 Nasal Cannula 06/06/24 03:00 Nasal Cannula 06/06/24 02:00 93 H 19 102/57 L 100 Room Air 06/06/24 01:00 Nasal Cannula 06/06/24 00:00 87 06/06/24 00:00 99.6 F 104 H 20 130/88 100 Nasal Cannula 06/05/24 23:00 Nasal Cannula 06/05/24 22:00 83 20 110/65 99 Nasal Cannula 06/05/24 21:00 Nasal Cannula 06/05/24 20:17 98 F 98 H 24 110/63 87 L Non-Rebreather 06/05/24 20:00 108 H 06/05/24 20:00 99 H 18 95/58 L 100 Nasal Cannula 06/05/24 20:00 Venturi Mask 06/05/24 19:00 Nasal Cannula 06/05/24 17:00 Nasal Cannula 06/05/24 16:05 98 H 06/05/24 16:05 98 H 06/05/24 16:05 98 Nasal Cannula 06/05/24 16:00 97.9 F 95 H 22 111/68 98 Nasal Cannula 06/05/24 16:00 90 06/05/24 15:00 Nasal Cannula 06/05/24 13:00 Nasal Cannula O2 Flow Rate FiO2 06/06/24 12:47 2 06/06/24 12:00 06/06/24 12:00 2 06/06/24 11:00 2 06/06/24 10:00 2 06/06/24 08:13 2 06/06/24 08:00 06/06/24 08:00 2 06/06/24 08:00 06/06/24 08:00 2 06/06/24 06:55 2 06/06/24 06:00 2 06/06/24 05:00 06/06/24 05:00 2 06/06/24 04:00 06/06/24 04:00 2 06/06/24 04:00 2 06/06/24 03:00 2 06/06/24 02:00 06/06/24 01:00 2 06/06/24 00:00 06/06/24 00:00 2 06/05/24 23:00 2 06/05/24 22:00 2 06/05/24 21:00 2 06/05/24 20:17 15 06/05/24 20:00 06/05/24 20:00 4 06/05/24 20:00 50 06/05/24 19:00 3 06/05/24 17:00 2 06/05/24 16:05 06/05/24 16:05 06/05/24 16:05 2 06/05/24 16:00 2 06/05/24 16:00 06/05/24 15:00 2 06/05/24 13:00 2 Intake and Output 06/05/24 06/06/24 06/06/24 23:59 07:59 15:59 Intake Total 1387 / 2587 270 / 270 Output Total 225 / 735 575 / 575 Balance 1162 / 1852 -575 / -305 270 / -305 Intake: Intake, Oral Amount 237 / 937 270 / 270 Intake, Total IV Amount 1150 / 1650 0.9 % Sodium Chloride 1000ML 1, 1000 / 1500 000 ml @ 200 mls/hr IV .Q5H [facility] Rx#:[id number] Levofloxacin/D5w 750 mg/150 ml 150 / 150 750 mg In 150 ml @ 100 mls/hr IV Q48H [facility] Rx#:[id number] Output: Output, Urine Amount 225 / 735 575 / 575 Other: Number of Unmeasured Voids 0 Weight 51.619 kg Patient Weight 06/06/24 23:59 Weight 51.619 kg Laboratory Results - last 24 hr 06/05/24 15:15: Sodium 128 L, Potassium 4.2, Chloride 98, Carbon Dioxide 23, Anion Gap 11.2, BUN 44 H, Creatinine 1.90 H, Estimated Creat Clear 20, Estimated GFR 26 L, Est GFR ( Amer) 31 L, Glucose 132 H D, Calcium 11.9 H, Total Bilirubin 0.8, AST 46 H, ALT 20, Alkaline Phosphatase 108, Total Protein 5.4 L, Albumin 3.4 L, Globulin 2.0, Albumin/Globulin Ratio 1.7 06/06/24 06:54: WBC 5.5 D, RBC 3.15 L, Hgb 9.2 L, Hct 29.1 L, MCV 92.3, MCH 29.1, MCHC 31.5 L, RDW 17.5, Plt Count 139 L, MPV 8.7, Neut % (Auto) 84.1 H, Lymph % (Auto) 7.0 L, Lea % (Auto) 8.1, Eos % (Auto) 0.1, Baso % (Auto) 0.7, Neut # (Auto) 4.6, Lymph # (Auto) 0.4 L, Lea # (Auto) 0.4, Eos # (Auto) 0.0, Baso # (Auto) 0.0, Sodium 127 L, Potassium 4.3, Chloride 96 L, Carbon Dioxide 25, Anion Gap 10.3, BUN 46 H, Creatinine 2.00 H, Estimated Creat Clear 19, Estimated GFR 24 L, Est GFR ( Amer) 29 L, Glucose 81 D, Calcium 11.2 H, Magnesium 1.4 L D, Total Bilirubin 0.8, AST 32 D, ALT 13 D, Alkaline Phosphatase 95, NT-Pro-B Natriuret Pep 88894 H, Total Protein 4.4 L, Albumin 2.6 L D, Globulin 1.8, Albumin/Globulin Ratio 1.4 I & O for Labs for Last 24 Hours: Intake & Output 06/03/24 06/04/24 06/05/24 06/06/24 23:59 23:59 23:59 23:59 Intake Total 770 / 770 1820 / 2060 2587 / 2587 270 / 270 Output Total 0 / 0 400 / 500 510 / 735 575 / 575 Balance 770 / 770 1420 / 1560 2077 / 1852 -305 / -305 Weight 48.534 kg 48.53 kg 50.893 kg 51.619 kg Constitutional: Present no acute distress, thin, chronically ill appearing and cooperative Head: Present atraumatic and normocephalic ENT: Present normal exam Neck: Present normal inspection Respiratory: Present prolonged expiratory phase, rhonchi, wheezes, crackles (most prominent in right lung fried) and normal respiratory effort Comment:: small bore catheter in right mid axillary line Cardiac: Present Reg Rate and Rhythm GI: Present soft and normal bowel sounds; Absent distention or tenderness Extremities: Present normal inspection and full ROM Skin: Present intact; Absent erythema Neuro: Present Grossly Intact, alert, awake and moves all extremities Comment:: Oriented to self, and situation, more interactive on exam today Assessment and Plan *Assessment and plan (1) Serum calcium elevated: Status: Acute Category: Medical Code(s): E83.52 - Hypercalcemia (2) Recurrent right pleural effusion: Status: Acute Category: Medical Code(s): J90 - Pleural effusion, not elsewhere classified (3) SOB (shortness of breath): Status: Acute Category: Medical Code(s): R06.02 - Shortness of breath (4) Acute kidney injury superimposed on CKD: Status: Acute Category: Medical Code(s): N17.9 - Acute kidney failure, unspecified; N18.9 - Chronic kidney disease, unspecified (5) Mediastinal lymphadenopathy: Status: Acute Category: Medical Code(s): R59.0 - Localized enlarged lymph nodes (6) Pulmonary nodules/lesions, multiple: Status: Acute Category: Medical Code(s): R91.8 - Other nonspecific abnormal finding of lung field (7) Non-Hodgkin lymphoma: Status: Acute Category: Medical Code(s): C85.90 - Non-Hodgkin lymphoma, unspecified, unspecified site (8) Diastolic CHF: Status: Acute Qualifiers: Heart failure chronicity: chronic Qualified Code(s): I50.32 - Chronic diastolic (congestive) heart failure Category: Medical Code(s): I50.30 - Unspecified diastolic (congestive) heart failure (9) HTN (hypertension): Status: Chronic Qualifiers: Hypertension type: essential hypertension Qualified Code(s): I10 - Essential (primary) hypertension Category: Medical Code(s): I10 - Essential (primary) hypertension (10) HLD (hyperlipidemia): Status: Chronic Qualifiers: Hyperlipidemia type: mixed hyperlipidemia Qualified Code(s): E78.2 - Mixed hyperlipidemia Category: Medical Code(s): E78.5 - Hyperlipidemia, unspecified (11) Lymphoma: Status: Chronic Qualifiers: Lymphoma type: unspecified type Lymphoma site: unspecified region Qualified Code(s): C85.90 - Non-Hodgkin lymphoma, unspecified, unspecified site Category: Medical Code(s): C85.90 - Non-Hodgkin lymphoma, unspecified, unspecified site (12) Severe protein-calorie malnutrition: Status: Acute Category: Medical Code(s): E43 - Unspecified severe protein-calorie malnutrition Plan 78 years old female with PMHx non-Hodgkin lymphoma, pulmonary hypertension, diastolic CHF, A-fib on chronic anticoagulation, hypertension hyperlipidemia CAD right pleural effusion, presented to [facility] ER complaining for shortness of breath. While was in the ER lab was significant for hypercalcemia 16.9, creatinine of 1.9, hemoglobin 10. 5. CT of the chest was obtained, concerning for a large right pleural effusion with worsening. Numerous small nodules present in the right thigh the upper right nodule are smaller than prior atelectasis in the right middle lobe extensive lymphadenopathy within the mediastinum. This finding were discussed with the referring provider. Patient transferred to our institution for further management. Underwent thoracentesis 06/03 with drainage of 1700 cc of fluid, had respiratory distress last night with reaccumulation on CT. Drained another 1600 cc off. Breathing better today. Fluid studies consistent with chylothorax along with appearance of fluid and briskly collection of effusion. Calcium showing slow improvement. Continuing goals of care discussion today. Continues to necessitate inpatient management. Problems addressed as follows: Acute hypoxemic respiratory failure secondary to recurrent right pleural effusion: Pulmonary nodules Mediastinal lymphadenopathy History of non-Hodgkin follicular lymphoma - Continue supplemental oxygen for goal saturation greater 90%. Currently on 2 L - CT obtained last night, per my review showed rapid recollection of effusion, large volume compressing right lung. Responded to thoracentesis. Repeat chest x-ray this morning per my review with significant improvement. Pigtail remains in place. -White count improved today at 5.5 down from 12.9. Continue Levaquin 750 mg every 48 hours renally dosed. Reevaluate antibiotics over the next 48 hours. - Blood cultures pending - Repeat CBC, CMP, magnesium ordered for the morning. -If develops worsening respiratory distress, will attempt to drain further fluid. Will leave thoracentesis catheter in place for the time being. -Pulmonology consulted and assisting with care. BELEM on CKD. Prerenal likely due to excessive diuresis Hypercalcemia secondary to malignancy versus hemoconcentration Calcium 11.2 this morning. Showing improvement with fluids, diuretics, medical management. Status post calcitonin x 1, zoledronic acid x 1. Caution with further fluids given rapid recollection of pleural effusion. Will administer 500 cc of IV fluids today. Pausing on diuresis given persistently elevated BUN/creatinine of 46 and 2.0. Magnesium low at 1.4, will replace with 2 g IV twice. Potassium normal at 4.3. 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 Review of chart shows echo from 2 years ago with severely elevated right-sided pressures, RVSP in the 70s. Patient also has severe valvular disease. Will obtain echo in the morning pending goals of. hyperlipidemia, gout Patient on allopurinol and atorvastatin, resume pending improvement kidney function On Protonix for GERD. Cardiac diet. Small frequent portions. High-calorie diet Full code
[2024-06-06] MEDS: ENOXAPARIN 40MG/0.4ML SYRINGE 40 MG SQ (13:35)
--- NOTE | 2024-06-06 18:00 | PC.NURSE ---
PT IS SITTING UP IN THE CHAIR EATING DINNER AT THIS TIME. ALERT AND ORIENTED X4. PT HAS BEEN EATING BETTER THIS SHIFT. LUNG SOUNDS HAVE SCATTERED WHEEZES/RHONCHI WITH FINE CRACKLES (BASES). ABDOMEN SOFT/NON TENDER WITH ACTIVE BOWEL SOUNDS. O2 SATURATION HAS MAINTAINED 93-98% ON 2 L NC. 2+ PITTING EDEMA NOTED TO BILATERAL ANKLES. BATH AND LINEN CHANGE THIS SHIFT. WILL CONTINUE TO MONITOR.
[2024-06-06 18:12] LABS: Albumin Level 2.9 g/dl (3.5-5.0); Chloride 92 mmol/L (98-107); Sodium 122 mmol/L (136-145)
[2024-06-06 18:15] LABS: Alanine Aminotransferase 15 U/L (12-78); Albumin/Globulin Ratio 1.5 (1.1-1.8); Alkaline Phosphatase 106 U/L (38-126); Aspartate Amino Transferase 41 U/L (14-36); Bilirubin,Total 0.5 mg/dl (0.2-1.3); Blood Urea Nitrogen 46 mg/dl (7-17); Carbon Dioxide 24 mmol/L (22.0-30.0); Creatinine Clearance Estimated 19 mL/min (50-200); Estimated Glomerular Filt Rate 24 ml/min (>60); GFR (African American) 29 ML/MIN (>60); Globulin 1.9 g/dL (1.3-3.2); Total Protein,Serum 4.8 g/dl (6.3-8.2)
[2024-06-06 18:16] LABS: Calcium 10.8 mg/dl (8.4-10.2); Glucose 104 mg/dl (74-100)
[2024-06-06] MEDS: 0.9 % SODIUM CHLORIDE 1000ML 500 ML 250 ML IV (20:24)
[2024-06-06] MEDS: ATORVASTATIN 20MG TABLET 20 MG PO (20:25)
[2024-06-07] VITALS (12 sets, daily range): BP systolic 93–127; BP diastolic 42–69; PULSE 54–74; RESP 16–26; TEMP 36.6–36.9; O2SAT 71–100; BMI 22.9
--- NOTE | 2024-06-07 03:20 | PC.NURSE ---
Patient has slept well throughout the shift. Patient is using BSC during the day and purwick at night; urine yellow and clear with adequate output. Patient wearing 2L/NC with sats high 90s-100%. Family is at bedside and helps patient with care. Patient was offered a snack at bedtime and agreed to a Popsicle but did not want anything else. Patient walked in room from bed to window and back a couple times and was weak but did well with assistance; states she would like to try to walk more during day shift. Vital signs stable.
[2024-06-07] MEDS: FLUTICASONE/SALMETEROL 250/50MCG DISKUS 1 PUFF IH ×2 (06:34→20:47)
[2024-06-07 06:48] LABS: Basophils % 0.3 % (0.1-2.0); Eosinophils # 0.1 K/mm3 (0.0-0.4); Eosinophils % 1.1 % (0.1-12.0); Hematocrit 29.1 % (37.0-47.0); Lymphocytes # 0.8 K/mm3 (0.7-4.5); Lymphocytes % 11.9 % (10-50); Mean Corpuscular HGB Conc 30.9 g/dL (31.8-35.4); Mean Corpuscular Hemoglobin 28.6 pg (27.0-31.2); Mean Corpuscular Volume 92.3 fl (81-99); Mean Platelet Volume 8.3 fl (7.4-10.4); Monocytes # 0.6 K/mm3 (0.1-1.0); Monocytes % 9.8 % (1.7-9.3); Neutrophils # 4.9 K/mm3 (1.8-7.8); Neutrophils % 76.8 % (37.0-80.0); Platelet Count 137 K/mm3 (142-424); Red Blood Count 3.15 M/mm3 (4.20-5.40); Red Cell Distribution Width 17.8 % (11.5-17.5); White Blood Count 6.4 K/mm3 (4.8-10.8)
[2024-06-07 06:55] LABS: Albumin Level 2.6 g/dl (3.5-5.0); Chloride 94 mmol/L (98-107); Sodium 122 mmol/L (136-145)
[2024-06-07 06:56] LABS: Potassium 3.8 mmoL/L (3.5-5.1)
[2024-06-07 06:58] LABS: Alanine Aminotransferase 13 U/L (12-78); Albumin/Globulin Ratio 1.4 (1.1-1.8); Alkaline Phosphatase 96 U/L (38-126); Anion Gap 7.8 mEq/L (5-15); Aspartate Amino Transferase 33 U/L (14-36); Bilirubin,Total 0.4 mg/dl (0.2-1.3); Blood Urea Nitrogen 43 mg/dl (7-17); Carbon Dioxide 24 mmol/L (22.0-30.0); Creatinine Clearance Estimated 21 mL/min (50-200); Estimated Glomerular Filt Rate 27 ml/min (>60); GFR (African American) 33 ML/MIN (>60); Globulin 1.8 g/dL (1.3-3.2); Glucose 87 mg/dl (74-100); Magnesium 2.4 mg/dl (1.6-2.3); Total Protein,Serum 4.4 g/dl (6.3-8.2)
--- NOTE | 2024-06-07 08:38 | XR_ITS ---
FINAL REPORT CLINICAL HISTORY: eval effusion COMPARISON: 06/03/2024 FINDINGS: A single portable view of the chest was obtained. The patient has undergone a prior midline sternotomy. There are multiple overlying wires covering the right side of the chest, as well as a presumed right pleural catheter. Cardiomegaly remains present. The mediastinum is within normal limits. There are worsening bibasilar opacities, larger on the right than the left, pneumonia or atelectasis. The moderate right pleural effusion is larger than seen on the prior exam, while the smaller left pleural effusion is stable. The bony thorax is intact. IMPRESSION: Worsening bibasilar opacities, larger on the right than the left, pneumonia or atelectasis. Moderate right pleural effusion is larger than seen on the prior exam, while the smaller left pleural effusion is stable. Reviewed, Interpreted and Dictated by Faustino Pineda III, MD Transcribed by Scarlett Huff Authenticated and [facility]
--- NOTE | 2024-06-07 09:42 | P.PN_ITS ---
Subjective *Date: 06/07/24 *Time: 11:07 Interval history: Patient denies any new respiratory complaints. Admits respiratory distress after thoracentesis. Slowly declining as per the patient. Pulmonology Exam Inpatient Vital signs and Labs for Last 24 Hours: Temp Pulse Resp BP Pulse Ox O2 Del Method O2 Flow Rate 97.9 F 68 20 109/56 L 99 Room Air 2 06/07/24 04:00 06/07/24 08:00 06/07/24 08:00 06/07/24 08:00 06/07/24 08:00 06/07/24 08:55 06/07/24 08:00 FiO2 50 06/05/24 20:00 Laboratory Results - last 24 hr 06/06/24 17:50: Sodium 122 L, Potassium 4.0, Chloride 92 L, Carbon Dioxide 24, Anion Gap 10.0, BUN 46 H, Creatinine 2.00 H, Estimated Creat Clear 19, Estimated GFR 24 L, Est GFR ( Amer) 29 L, Glucose 104 H D, Calcium 10.8 H, Total Bilirubin 0.5, AST 41 H D, ALT 15, Alkaline Phosphatase 106, Total Protein 4.8 L , Albumin 2.9 L D, Globulin 1.9, Albumin/Globulin Ratio 1.5 06/07/24 06:20: WBC 6.4, RBC 3.15 L, Hgb 9.0 L, Hct 29.1 L, MCV 92.3, MCH 28.6, MCHC 30.9 L, RDW 17.8 H, Plt Count 137 L, MPV 8.3, Neut % (Auto) 76.8, Lymph % (Auto) 11.9, Garrett % (Auto) 9.8 H, Eos % (Auto) 1.1, Baso % (Auto) 0.3, Neut # (Auto) 4.9, Lymph # (Auto) 0.8, Garrett # (Auto) 0.6, Eos # (Auto) 0.1, Baso # (Auto) 0.0, Sodium 122 L, Potassium 3.8, Chloride 94 L, Carbon Dioxide 24, Anion Gap 7.8, BUN 43 H, Creatinine 1.80 H, Estimated Creat Clear 21, Estimated GFR 27 L, Est GFR ( Amer) 33 L, Glucose 87, Calcium 10.0, Magnesium 2.4 H D, Total Bilirubin 0.4, AST 33, ALT 13, Alkaline Phosphatase 96, Total Protein 4.4 L, Albumin 2.6 L D, Globulin 1.8, Albumin/Globulin Ratio 1.4 Temp Pulse Resp BP Pulse Ox O2 Del Method O2 Flow Rate 98.0 F 70 20 127/58 L 92 L Nasal Cannula 3 06/03/24 07:59 06/03/24 08:00 06/03/24 07:59 06/03/24 07:59 06/03/24 07:59 06/03/24 09:00 06/03/24 09:00 Laboratory Results - last 24 hr 06/03/24 03:30: Troponin I 0.04 H 06/03/24 06:15: WBC 6.1, RBC 3.27 L, Hgb 9.6 L, Hct 30.2 L, MCV 92.2, MCH 29.4, MCHC 31.9, RDW 17.2, Plt Count 131 L, MPV 9.1, Neut % (Auto) 77.9, Lymph % (Auto) 10.6, Garrett % (Auto) 9.6 H, Eos % (Auto) 1.3, Baso % (Auto) 0.6, Neut # (Auto) 4.7, Lymph # (Auto) 0.6 L, Garrett # (Auto) 0.6, Eos # (Auto) 0.1, Baso # (Auto) 0.0, PT 12.8 H, INR 1.16 H, Sodium 131 L, Potassium 4.0, Chloride 98, Carbon Dioxide 29, Anion Gap 8.0, BUN 42 H, Creatinine 1.80 H, Estimated Creat Clear 20, Estimated GFR 27 L, Est GFR ( Amer) 33 L, Glucose 119 H, Jorgito cium 14.2 H*, Magnesium 2.1, Total Bilirubin 0.6, AST 40 H, ALT 18, Alkaline Phosphatase 103, Troponin I 0.04 H, Total Protein 5.1 L, Albumin 3.1 L, Globulin 2.0, Albumin/Globulin Ratio 1.6 I & O for Labs for Last 24 Hours: Intake & Output 06/04/24 06/05/24 06/06/24 06/07/24 23:59 23:59 23:59 23:59 Intake Total 1820 / 2060 2587 / 2587 1420 / 1420 Output Total 400 / 500 510 / 735 825 / 825 900 / 900 Balance 1420 / 1560 2077 / 1852 595 / 595 -900 / -900 Weight 106 lb 15.845 oz 112 lb 3.2 oz 113 lb 12.8 oz 113 lb 12.807 oz Intake & Output 05/31/24 06/01/24 06/02/24 06/03/24 23:59 23:59 23:59 23:59 Intake Total 230 / 230 Output Total 0 / 0 Balance 230 / 230 Weight 106 lb 15.986 oz Microbiology Reports for the Last 24 Hours: Microbiology 06/05/24 15:15 Blood Blood Culture - Preliminary NO GROWTH AFTER 24 HOURS 06/05/24 15:15 Blood Blood Culture - Preliminary NO GROWTH AFTER 24 HOURS Constitutional: Present severe distress Head: Present normocephalic and atraumatic ENT: Present normal exam, normal oropharynx and mucous membranes moist Neck: Present normal inspection and full ROM Respiratory: Present respiratory distress and able to speak in complete sentences; Absent wheezes or crackles Cardiac: Present S1/S2, Tachycardia and radial pulses present GI: Present soft and distention; Absent tenderness or guarding Rectal (female): Present deferred (female): Present deferred Skin: Present intact; Absent cyanosis or jaundice Neuro: Present alert, awake and oriented x 3 Extremities: Present normal inspection; Absent clubbing or cyanosis Psychiatric: Present normal affect and cooperative Assessment and Plan *Assessment and plan (1) Recurrent right pleural effusion: Status: Acute Category: Medical Code(s): J90 - Pleural effusion, not elsewhere classified (2) Pulmonary nodules/lesions, multiple: Status: Acute Category: Medical Code(s): R91.8 - Other nonspecific abnormal finding of lung field (3) Pleural effusion on right: Status: Acute Category: Medical Code(s): J90 - Pleural effusion, not elsewhere classified Plan Ms. Portillo is a 78-year-old female never smoker prior history of multiple pulmonary nodules mediastinal hilar lymphadenopathy calcified, chronic hypoxic respiratory failure questionable rheumatoid arthritis severe pulmonary hypertension based on echocardiogram with RVSP of 78 recently seen in pulmonary clinic for exertional dyspnea due to follow-up with lab work and pulmonary testing admitted to the hospital complaining of worsening shortness of breath and pulmonary was called for further evaluation and management. Patient presented to outside hospital during which she was noted to have worsening right pleural effusion hypercalcemia and worsening renal function and was requested to be transferred to [facility]. Chest x-ray on admission showed large right pleural effusion. Afebrile. Hemodynamically stable. No evidence of leukocytosis. BELEM and severe hypercalcemia. Status post thoracentesis on 06/04/2024, removed 1720 cc. Pleural fluid cell count differential mononuclear predominant. Exudative effusion. Cytology negative for malignant cells. Fluid cultures no growth so far. Vitamin D 1-25 high normal at 65. Previously on vitamin D 25 supplementations. AASHISH levels within normal limits at less than 15. Pleural fluid cholesterol and triglyceride levels pending. Interval update: Worsening respiratory distress over the weekend with CT showing significant reaccumulation of pleural fluid. Pigtail catheter was placed. Chest x-ray from this morning continue to show reaccumulation of pleural fluid compared to chest x-ray post pigtail catheter placement Plan: -Follow-up with pleural fluid triglycerides and cholesterol levels. Follow-up chest x-ray in the a.m. -Pigtail catheter in place. Not draining. Easy to pass. Will follow. -Ubaldo every 6 hours on as-needed basis -Continue oxygen supplementation to maintain O2 saturation goal of 90-95% # Thank you for involving pulmonary in this patient care. Will continue to follow.
--- NOTE | 2024-06-07 09:46 | US_ITS ---
FINAL REPORT CLINICAL HISTORY: Ascites/Liver echotexture COMPARISON: None FINDINGS: Sonographic images of the right upper quadrant were obtained. The pancreas is partially obscured. A moderate right pleural effusion is present. The liver has a coarsened echotexture, which can be seen in patients with cirrhosis. The gallbladder is contracted. No decubitus images were obtained secondary to the patient's difficulty moving. There is no evidence of biliary ductal dilatation.The common duct measures 4mm. Limited images of the right kidney are unremarkable. IMPRESSION: Moderate right pleural effusion. Coarsened echotexture, may be secondary to cirrhosis. Contracted gallbladder without evidence of biliary ductal dilatation. Reviewed, Interpreted and Dictated by Faustino Pineda III, MD Transcribed by Scarlett Huff Authenticated and [facility]
[2024-06-07] MEDS: PANTOPRAZOLE 40MG TABLET 40 MG PO (09:59)
[2024-06-07] MEDS: ENOXAPARIN 40MG/0.4ML SYRINGE 40 MG SQ (09:59)
[2024-06-07] MEDS: LEVOFLOXACIN/D5W 500 MG/100 ML PIGGYBACK 100 MG IV (09:59)
[2024-06-07 11:26] LABS: Miscellaneous Test SCANNED IMAGE
--- NOTE | 2024-06-07 14:14 | DIET.NUTRFU ---
Meal intake this AM was better at 75%, her skin tone to her face was better today. She is still collecting fluid and will need thorocentesis ongoing. May transfer to higher level of care. Pulmonary still running a few diagnostic tests. Family have been reviewing [facility] goals and choices, possible hospice in future. Patient has boost at bedside will continue to offer snacks in-between meals and supplements with meals to help meet protein needs.
[2024-06-07] MEDS: BUMETANIDE 1MG/4ML VIAL 1 MG IV (15:25)
--- NOTE | 2024-06-07 17:06 | PC.NURSE ---
Patient weaned from 2LNC to room air and tolerating well. Patient began to feel sob and 2LNC added back for comfort. Hospitalist aware. VS stable. Pigtail catheter in place, no drainage noted. Lung sounds diminished bilateral lower lobes.
[2024-06-07] MEDS: ATORVASTATIN 20MG TABLET 20 MG PO (20:59)
--- NOTE | 2024-06-07 22:24 | P.PN_ITS ---
Subjective *Date: 06/07/24 *Time: 12:24 Interval history: Patient still alert and oriented this morning. Did a better job of eating. No nausea or vomiting. Had a bowel movement. Has some slight pain at site of chest tube but otherwise denies any chest pain or worsening shortness of breath on morning rounds. Did develop some chest discomfort/shortness of breath by early afternoon. Afebrile. Medical Exam Vital signs and Labs for Last 24 Hours: Vital Signs Temp Pulse Pulse Resp BP Pulse Ox O2 Del Method 06/07/24 22:00 73 26 H 93/56 L 100 Nasal Cannula 06/07/24 21:03 Nasal Cannula 06/07/24 20:00 70 06/07/24 20:00 65 100 Nasal Cannula 06/07/24 20:00 98.5 F 06/07/24 18:36 Nasal Cannula 06/07/24 18:00 63 24 126/62 100 Nasal Cannula 06/07/24 17:05 Nasal Cannula 06/07/24 16:00 70 06/07/24 16:00 Nasal Cannula 06/07/24 16:00 69 24 127/69 100 Nasal Cannula 06/07/24 15:00 Nasal Cannula 06/07/24 14:00 74 24 112/59 L 100 Nasal Cannula 06/07/24 13:05 Nasal Cannula 06/07/24 12:00 70 06/07/24 12:00 71 24 118/64 71 L Room Air 06/07/24 11:02 Room Air 06/07/24 10:00 73 20 123/60 96 Room Air 06/07/24 08:55 Room Air 06/07/24 08:00 70 06/07/24 08:00 68 20 109/56 L 99 Nasal Cannula 06/07/24 08:00 Nasal Cannula 06/07/24 06:50 Nasal Cannula 06/07/24 06:00 61 16 102/67 L 100 Nasal Cannula 06/07/24 05:00 Nasal Cannula 06/07/24 04:00 70 06/07/24 04:00 97.9 F 59 L 16 111/59 L 100 Nasal Cannula 06/07/24 03:00 Nasal Cannula 06/07/24 02:00 54 L 16 97/47 L 100 Nasal Cannula 06/07/24 01:00 Nasal Cannula 06/07/24 00:00 60 06/07/24 00:00 97.9 F 06/07/24 00:00 98.1 F 62 16 122/42 L 100 Nasal Cannula 06/06/24 23:00 Nasal Cannula O2 Flow Rate 06/07/24 22:00 2 06/07/24 21:03 2 06/07/24 20:00 06/07/24 20:00 2 06/07/24 20:00 06/07/24 18:36 2 06/07/24 18:00 2 06/07/24 17:05 2 06/07/24 16:00 06/07/24 16:00 2 06/07/24 16:00 2 06/07/24 15:00 2 06/07/24 14:00 2 06/07/24 13:05 3 06/07/24 12:00 06/07/24 12:00 06/07/24 11:02 06/07/24 10:00 06/07/24 08:55 06/07/24 08:00 06/07/24 08:00 2 06/07/24 08:00 2 06/07/24 06:50 2 06/07/24 06:00 2 06/07/24 05:00 2 06/07/24 04:00 06/07/24 04:00 2 06/07/24 03:00 2 06/07/24 02:00 2 06/07/24 01:00 2 06/07/24 00:00 06/07/24 00:00 06/07/24 00:00 2 06/06/24 23:00 2 Intake and Output 06/07/24 06/07/24 06/07/24 07:59 15:59 23:59 Intake Total 360 / 360 Output Total 900 / 1400 500 / 1400 Balance -900 / -1040 360 / -1040 -500 / -1040 Intake: Intake, Oral Amount 360 / 360 Output: Output, Urine Amount 900 / 1400 500 / 1400 Other: Number of Unmeasured Voids 0 1 Number of Bowel Movements 1 1 Weight 51.619 kg Patient Weight 06/07/24 23:59 Weight 51.619 kg Laboratory Results - last 24 hr 06/03/24 12:20: Miscellaneous Test Scanned image 06/07/24 06:20: WBC 6.4, RBC 3.15 L, Hgb 9.0 L, Hct 29.1 L, MCV 92.3, MCH 28.6, MCHC 30.9 L, RDW 17.8 H, Plt Count 137 L, MPV 8.3, Neut % (Auto) 76.8, Lymph % (Auto) 11.9, [place] % (Auto) 9.8 H, Eos % (Auto) 1.1, Baso % (Auto) 0.3, Neut # (Auto) 4.9, Lymph # (Auto) 0.8, [place] # (Auto) 0.6, Eos # (Auto) 0.1, Baso # (Auto) 0.0, Sodium 122 L, Potassium 3.8, Chloride 94 L, Carbon Dioxide 24, Anion Gap 7.8, BUN 43 H, Creatinine 1.80 H, Estimated Creat Clear 21, Estimated GFR 27 L, Est GFR ( Amer) 33 L, Glucose 87, Calcium 10.0, Magnesium 2.4 H D, Total Bilirubin 0.4, AST 33, ALT 13, Alkaline Phosphatase 96, Total Protein 4.4 L, Albumin 2.6 L D, Globulin 1.8, Albumin/Globulin Ratio 1.4 I & O for Labs for Last 24 Hours: Intake & Output 06/04/24 06/05/24 06/06/24 06/07/24 23:59 23:59 23:59 23:59 Intake Total 1820 / 2060 2587 / 2587 1420 / 1420 360 / 360 Output Total 400 / 500 510 / 735 825 / 825 1400 / 1400 Balance 1420 / 1560 2077 / 1852 595 / 595 -1040 / -1040 Weight 48.53 kg 50.893 kg 51.619 kg 51.619 kg Microbiology Reports for the Last 24 Hours: Microbiology 06/05/24 15:15 Blood Blood Culture - Preliminary NO GROWTH AFTER 48 HOURS 06/05/24 15:15 Blood Blood Culture - Preliminary NO GROWTH AFTER 48 HOURS Constitutional: Present no acute distress, thin, chronically ill appearing and cooperative Head: Present atraumatic and normocephalic ENT: Present normal exam Neck: Present normal inspection Respiratory: Present prolonged expiratory phase, rhonchi, wheezes, crackles (most prominent in right lung fried) and normal respiratory effort Comment:: small bore catheter in right mid axillary line Cardiac: Present Reg Rate and Rhythm GI: Present soft and normal bowel sounds; Absent distention or tenderness Extremities: Present normal inspection and full ROM Skin: Present intact; Absent erythema Neuro: Present Grossly Intact, alert, awake and moves all extremities Comment:: Oriented to self, and situation, more interactive on exam today Assessment and Plan *Assessment and plan (1) Serum calcium elevated: Status: Acute Category: Medical Code(s): E83.52 - Hypercalcemia (2) Recurrent right pleural effusion: Status: Acute Category: Medical Code(s): J90 - Pleural effusion, not elsewhere classified (3) SOB (shortness of breath): Status: Acute Category: Medical Code(s): R06.02 - Shortness of breath (4) Acute kidney injury superimposed on CKD: Status: Acute Category: Medical Code(s): N17.9 - Acute kidney failure, unspecified; N18.9 - Chronic kidney disease, unspecified (5) Mediastinal lymphadenopathy: Status: Acute Category: Medical Code(s): R59.0 - Localized enlarged lymph nodes (6) Pulmonary nodules/lesions, multiple: Status: Acute Category: Medical Code(s): R91.8 - Other nonspecific abnormal finding of lung field (7) Non-Hodgkin lymphoma: Status: Acute Category: Medical Code(s): C85.90 - Non-Hodgkin lymphoma, unspecified, unspecified site (8) Diastolic CHF: Status: Acute Qualifiers: Heart failure chronicity: chronic Qualified Code(s): I50.32 - Chronic diastolic (congestive) heart failure Category: Medical Code(s): I50.30 - Unspecified diastolic (congestive) heart failure (9) HTN (hypertension): Status: Chronic Qualifiers: Hypertension type: essential hypertension Qualified Code(s): I10 - Essential (primary) hypertension Category: Medical Code(s): I10 - Essential (primary) hypertension (10) HLD (hyperlipidemia): Status: Chronic Qualifiers: Hyperlipidemia type: mixed hyperlipidemia Qualified Code(s): E78.2 - Mixed hyperlipidemia Category: Medical Code(s): E78.5 - Hyperlipidemia, unspecified (11) Lymphoma: Status: Chronic Qualifiers: Lymphoma type: unspecified type Lymphoma site: unspecified region Qualified Code(s): C85.90 - Non-Hodgkin lymphoma, unspecified, unspecified site Category: Medical Code(s): C85.90 - Non-Hodgkin lymphoma, unspecified, unspecified site (12) Severe protein-calorie malnutrition: Status: Acute Category: Medical Code(s): E43 - Unspecified severe protein-calorie malnutrition Plan 78 years old female with PMHx non-Hodgkin lymphoma, pulmonary hypertension, diastolic CHF, A-fib on chronic anticoagulation, hypertension hyperlipidemia CAD right pleural effusion, presented to [facility] ER complaining for shortness of breath. While was in the ER lab was significant for hypercalcemia 16.9, creatinine of 1.9, hemoglobin 10. 5. CT of the chest was obtained, concerning for a large right pleural effusion with worsening. Numerous small nodules present in the right thigh the upper right nodule are smaller than prior atelectasis in the right middle lobe extensive lymphadenopathy within the mediastinum. This finding were discussed with the referring provider. Patient transferred to our institution for further management. Has undergone thoracentesis twice. Once on 06/03 with drainage of 1700 cc of fluid. Repeat drainage on 06/05 with 1600 cc off. Remains tenuous but comfortable on room air today. Per my review of chest imaging, x-ray shows increasing effusion again. Continuing antibiotics empirically with Levaquin every 48 hours. Continues to require inpatient management. Goals of care discussion daily problems addressed as follows. Acute hypoxemic respiratory failure secondary to recurrent right pleural effusion: Pulmonary nodules Mediastinal lymphadenopathy History of non-Hodgkin follicular lymphoma - Discussed case with pulmonology today, concern for rapid recurrence of effusion. Recommend repeat chest x-ray today to evaluate effusion. No drainage from pigtail catheter. Will continue to monitor. Continue DuoNebs every 6 hours as needed. Continue supplemental oxygen as needed for O2 sats greater than 90%. Still awaiting triglyceride and cholesterol levels from effusion. -White count improved today at 5.5 down from 12.9. Continue Levaquin 750 mg every 48 hours renally dosed. Reevaluate antibiotics over the next 48 hours. - Blood cultures pending - Repeat CBC, CMP, magnesium ordered for the morning. -If develops worsening respiratory distress, will attempt to drain further fluid. Will leave thoracentesis catheter in place for the time being. -Further discussion with family about possible transfer for evaluation of lymphatic system and possible intervention to stop leakage versus hospice care. -Right upper quadrant ultrasound pending to evaluate possible source of effusion. BELEM on CKD. Prerenal likely due to excessive diuresis Hypercalcemia secondary to malignancy versus hemoconcentration Calcium 1.0 this morning. Kidney function with BUN 43, creatinine 1.8. - Status post calcitonin x 1, zoledronic acid x 1. Caution with further fluids given rapid recollection of pleural effusion. -Magnesium 2.4, potassium 3.8. Holding on replacement today. 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 Review of chart shows echo from 2 years ago with severely elevated right-sided pressures, RVSP in the 70s. Patient also has severe valvular disease. Echo pending hyperlipidemia, gout Patient on allopurinol and atorvastatin, resume pending improvement kidney function On Protonix for GERD. Cardiac diet. Small frequent portions. High-calorie diet Full code
[2024-06-08] VITALS (14 sets, daily range): BP systolic 92–147; BP diastolic 48–68; PULSE 48–80; RESP 16–24; TEMP 36.9–37.2; O2SAT 96–100; BMI 22.3
--- NOTE | 2024-06-08 05:48 | PC.NURSE ---
Pt a/ox4. Pt has not voiced any complaints to staff throughout night. Pt has course crackles in right lung this AM. Pt noted to have intermittent non productive cough as well. Pt sat upper 90s on 2 L nc, o2 remained on per pt request. Pt has been bradycardic through shift with lowest HR 48 bpm. Pigtail cath to right chest, CDI. Family at bedside. Call light within reach.
[2024-06-08 05:55] LABS: Basophils % 0.2 % (0.1-2.0); Eosinophils # 0.1 K/mm3 (0.0-0.4); Eosinophils % 0.9 % (0.1-12.0); Hematocrit 27.1 % (37.0-47.0); Hemoglobin 8.9 g/dL (12.2-16.2); Lymphocytes # 0.7 K/mm3 (0.7-4.5); Lymphocytes % 12.4 % (10-50); Mean Corpuscular HGB Conc 32.9 g/dL (31.8-35.4); Mean Corpuscular Hemoglobin 29.2 pg (27.0-31.2); Mean Corpuscular Volume 88.8 fl (81-99); Mean Platelet Volume 8.2 fl (7.4-10.4); Monocytes # 0.7 K/mm3 (0.1-1.0); Monocytes % 12.1 % (1.7-9.3); Neutrophils % 74.4 % (37.0-80.0); Platelet Count 149 K/mm3 (142-424); Red Blood Count 3.05 M/mm3 (4.20-5.40); Red Cell Distribution Width 17.6 % (11.5-17.5); White Blood Count 5.4 K/mm3 (4.8-10.8)
[2024-06-08 06:02] LABS: Albumin Level 2.7 g/dl (3.5-5.0); Chloride 93 mmol/L (98-107); Sodium 124 mmol/L (136-145)
[2024-06-08 06:04] LABS: Magnesium 1.8 mg/dl (1.6-2.3); Potassium 3.1 mmoL/L (3.5-5.1)
[2024-06-08 06:05] LABS: Alanine Aminotransferase 16 U/L (12-78); Albumin/Globulin Ratio 1.4 (1.1-1.8); Alkaline Phosphatase 101 U/L (38-126); Anion Gap 9.1 mEq/L (5-15); Aspartate Amino Transferase 34 U/L (14-36); Bilirubin,Total 0.6 mg/dl (0.2-1.3); Blood Urea Nitrogen 36 mg/dl (7-17); Calcium 9.2 mg/dl (8.4-10.2); Carbon Dioxide 25 mmol/L (22.0-30.0); Creatinine Clearance Estimated 21 mL/min (50-200); Estimated Glomerular Filt Rate 27 ml/min (>60); GFR (African American) 33 ML/MIN (>60); Globulin 1.9 g/dL (1.3-3.2); Glucose 84 mg/dl (74-100); Total Protein,Serum 4.6 g/dl (6.3-8.2)
[2024-06-08] MEDS: FLUTICASONE/SALMETEROL 250/50MCG DISKUS 1 PUFF IH ×2 (06:06→20:15)
--- NOTE | 2024-06-08 08:00 | XR_ITS ---
FINAL REPORT CLINICAL HISTORY: Right pleural effusion COMPARISON: 06/07/2024 FINDINGS: SINGLE-VIEW CHEST There is cardiomegaly with worsening pulmonary vascular congestion. Patient is status post median sternotomy. There are persistent bilateral pulmonary opacities, may represent atelectasis or pneumonia. Small to moderate right effusion is similar to previous. There is no pneumothorax. IMPRESSION: Persistent bilateral atelectasis or pneumonia with right pleural effusion. Reviewed, Interpreted and Dictated by Faustino Pineda III, MD Transcribed by Kayla Rangel Authenticated and [facility]
--- NOTE | 2024-06-08 08:00 | CA_ITS ---
APPROVED REPORT EXAM: Comprehensive 2D, Doppler, and color-flow Echocardiogram Driver Manager: Jennifer Cedillo RVT Ht: 4 ft 11 in Wt: 113lbs BSA: 1.45 BP: 122/42 mmHg Indications: EVAL EF,CABG,A-FIB,CAD,RT PLEURAL EFFUSION,MILD ,HX NON-HODGKIN LYMPHOMA,HTN,SOA,HLD 2D Dimensions LA Volume 88.90 mL LA Volume Index 61.31 mL/m2 (M/F) 16-34 M-Mode Dimensions RVDd 3.65 cm (0.9-2.6) LA Diam 4.70 cm (1.9-4.0) LVDd 3.90 cm (3.5-5.7) LVDs 2.00 cm (3.5-5.7) IVSd 0.64 cm (0.6-1.1) PWd 0.57 cm (0.6-1.1) EF (Teich) 80.70% FS 48.70% EDV (Teich) 65.90 mL TAPSE 1.11 (<1.7) ESV (Teich) 12.70 mL LV Diastology E Decel Time 127 (160-240 msec) E/A Ratio 1.1 Aortic Valve MANJEET Index 1.30 cm2/m2 AoV Peak Aj. 227.0 (50-130 cm/s) AO Peak GR. 20.70 mmHg AO Mean GR. 8.90 (<5 mmHg) AO VTI 35.4 (18-25 cm) MANJEET (VTI) 1.92 (2.5-4.5 cm2) Mitral Valve MV E Max Aj. 214.0 (40-130 cm/s) MV A Velocity 192.0 (40-130 cm/s) E/A Ratio 1.11 MV PHT 37.0 ms Pulmonary Valve PV Peak Velocity 143.0 (50-150 cm/s) Tricuspid Valve TR P. Velocity 409.00 cm/s RAP Estimate 10.00 mmHg RVSP 76.80 mmHg Left Ventricle The left ventricle is normal size. The left ventricular systolic function is normal. The left ventricular ejection fraction is within the normal range. There is increased of the wall thickness. Septal flattening is present, consistent with increased right-sided pressures. Diastolic function is indeterminate. LVEF is 60%. Right Ventricle Right ventricle is severely dilated. Right ventricle is severely hypokinetic. TAPSE 1.0 cm. Atria Left atrium is severely dilated. Right atrium is severely dilated. There is no Doppler evidence of interatrial shunt. Aortic Valve Aortic valve is mildly thickened. Mild aortic stenosis. MANJEET by continuity equation and 2D planimetry is 1.8 cm???. Mean AV gradient 10 mmHg. Max AV gradient 20 mmHg. Peak velocity 2.8 m/s. Trace aortic regurgitation. Mitral Valve The mitral valve leaflets are mildly thickened. No evidence of mitral valve stenosis. Mild mitral regurgitation. Tricuspid Valve The tricuspid valve leaflets are thin and pliable. Severe tricuspid regurgitation. RVSP > 60 mmHg. RVSP may be inaccurate in the setting of severe TR. Pulmonic Valve The pulmonary valve is normal in structure. Mild pulmonary regurgitation. Great Vessels The aortic root is not well-visualized. The IVC is normal in size, but collapses < 50% with respirophasic variation. RA pressure is estimated at 8 mmHg. Pericardium There is no pericardial effusion. Pleural effusion is present. Ascites is also present. Other Information Study Quality: Fair Conclusion Normal LV systolic function. Severe RV dilation with severe reduction in RV function. Severe biatrial dilation. Severe TR. Mild MR, mild PI. Mild (MANJEET by continuity equation and 2D planimetry is 1.8 cm???. Mean AV gradient 10 mmHg. Max AV gradient 20 mmHg. Peak velocity 2.8 m/s). Pleural effusion and ascites are present. Electronically signed by : Michelle Rosenthal MD 06/08/2024 11:47:33
[2024-06-08] MEDS: ENOXAPARIN 30MG/0.3ML SYRINGE 30 MG SQ (08:43)
[2024-06-08] MEDS: POTASSIUM CHLORIDE 20MEQ TAB 20 MEQ PO ×3 (08:43→20:15)
[2024-06-08] MEDS: PANTOPRAZOLE 40MG TABLET 40 MG PO (08:43)
[2024-06-08] MEDS: BUMETANIDE 1MG/4ML VIAL 1 MG IV ×2 (08:43→15:40)
--- NOTE | 2024-06-08 09:37 | EXP.PULM.PN ---
Subjective *Date: 06/08/24 *Time: 10:16 Interval history: No acute events overnight Pulmonology Exam Inpatient Vital signs and Labs for Last 24 Hours: Temp Pulse Resp BP Pulse Ox O2 Del Method O2 Flow Rate 98.4 F 68 24 124/62 100 Nasal Cannula 2 06/08/24 04:00 06/08/24 08:00 06/08/24 08:00 06/08/24 08:00 06/08/24 08:00 06/08/24 09:05 06/08/24 09:05 FiO2 50 06/05/24 20:00 Laboratory Results - last 24 hr 06/03/24 12:20: Miscellaneous Test Scanned image 06/08/24 05:29: WBC 5.4, RBC 3.05 L, Hgb 8.9 L, Hct 27.1 L, MCV 88.8, MCH 29.2, MCHC 32.9, RDW 17.6 H, Plt Count 149, MPV 8.2, Neut % (Auto) 74.4, Lymph % (Auto) 12.4, [place] % (Auto) 12.1 H, Eos % (Auto) 0.9, Baso % (Auto) 0.2, Neut # (Auto) 4.0, Lymph # (Auto) 0.7, [place] # (Auto) 0.7, Eos # (Auto) 0.1, Baso # (Auto) 0.0, Sodium 124 L, Potassium 3.1 L, Chloride 93 L, Carbon Dioxide 25, Anion Gap 9.1, BUN 36 H, Creatinine 1.80 H, Estimated Creat Clear 21, Estimated GFR 27 L, Est GFR ( Amer) 33 L, Glucose 84, Calcium 9.2, Magnesium 1.8 D, Total Bilirubin 0.6, AST 34, ALT 16, Alkaline Phosphatase 101, Total Protein 4.6 L, Albumin 2.7 L, Globulin 1.9, Albumin/Globulin Ratio 1.4 Temp Pulse Resp BP Pulse Ox O2 Del Method O2 Flow Rate 98.0 F 70 20 127/58 L 92 L Nasal Cannula 3 06/03/24 07:59 06/03/24 08:00 06/03/24 07:59 06/03/24 07:59 06/03/24 07:59 06/03/24 09:00 06/03/24 09:00 Laboratory Results - last 24 hr 06/03/24 03:30: Troponin I 0.04 H 06/03/24 06:15: WBC 6.1, RBC 3.27 L, Hgb 9.6 L, Hct 30.2 L, MCV 92.2, MCH 29.4, MCHC 31.9, RDW 17.2, Plt Count 131 L, MPV 9.1, Neut % (Auto) 77.9, Lymph % (Auto) 10.6, [place] % (Auto) 9.6 H, Eos % (Auto) 1.3, Baso % (Auto) 0.6, Neut # (Auto) 4.7, Lymph # (Auto) 0.6 L, [place] # (Auto) 0.6, Eos # (Auto) 0.1, Baso # (Auto) 0.0, PT 12.8 H, INR 1.16 H, Sodium 131 L, Potassium 4.0, Chloride 98, Carbon Dioxide 29, Anion Gap 8.0, BUN 42 H, Creatinine 1.80 H, Estimated Creat Clear 20, Estimated GFR 27 L, Est GFR ( Amer) 33 L, Glucose 119 H, Calcium 14.2 H*, Magnesium 2.1, Total Bilirubin 0.6, AST 40 H, ALT 18, Alkaline Phosphatase 103, Troponin I 0.04 H, Total Protein 5.1 L, Albumin 3.1 L, Globulin 2.0, Albumin/Globulin Ratio 1.6 I & O for Labs for Last 24 Hours: Intake & Output 06/05/24 06/06/24 06/07/24 06/08/24 23:59 23:59 23:59 23:59 Intake Total 2587 / 2587 1420 / 1420 360 / 360 540 / 540 Output Total 510 / 735 825 / 825 1400 / 1400 170 / 170 Balance 2077 / 1852 595 / 595 -1040 / -1040 370 / 370 Weight 112 lb 3.2 oz 113 lb 12.8 oz 113 lb 12.807 oz 110 lb 9.6 oz Intake & Output 05/31/24 06/01/24 06/02/24 06/03/24 23:59 23:59 23:59 23:59 Intake Total 230 / 230 Output Total 0 / 0 Balance 230 / 230 Weight 106 lb 15.986 oz Microbiology Reports for the Last 24 Hours: Microbiology 06/05/24 15:15 Blood Blood Culture - Preliminary NO GROWTH AFTER 48 HOURS 06/05/24 15:15 Blood Blood Culture - Preliminary NO GROWTH AFTER 48 HOURS Constitutional: Present severe distress Head: Present normocephalic and atraumatic ENT: Present normal exam, normal oropharynx and mucous membranes moist Neck: Present normal inspection and full ROM Respiratory: Present respiratory distress and able to speak in complete sentences; Absent wheezes or crackles Cardiac: Present S1/S2, Tachycardia and radial pulses present GI: Present soft and distention; Absent tenderness or guarding Rectal (female): Present deferred (female): Present deferred Skin: Present intact; Absent cyanosis or jaundice Neuro: Present alert, awake and oriented x 3 Extremities: Present normal inspection; Absent clubbing or cyanosis Psychiatric: Present normal affect and cooperative Assessment and Plan *Assessment and plan (1) Recurrent right pleural effusion: Status: Acute Category: Medical Code(s): J90 - Pleural effusion, not elsewhere classified (2) Pulmonary nodules/lesions, multiple: Status: Acute Category: Medical Code(s): R91.8 - Other nonspecific abnormal finding of lung field (3) Pleural effusion on right: Status: Acute Category: Medical Code(s): J90 - Pleural effusion, not elsewhere classified Plan Ms. Portillo is a 78-year-old female never smoker prior history of multiple pulmonary nodules mediastinal hilar lymphadenopathy calcified, chronic hypoxic respiratory failure questionable rheumatoid arthritis severe pulmonary hypertension based on echocardiogram with RVSP of 78 recently seen in pulmonary clinic for exertional dyspnea due to follow-up with lab work and pulmonary testing admitted to the hospital complaining of worsening shortness of breath and pulmonary was called for further evaluation and management. Patient presented to outside hospital during which she was noted to have worsening right pleural effusion hypercalcemia and worsening renal function and was requested to be transferred to [facility]. Chest x-ray on admission showed large right pleural effusion. Afebrile. Hemodynamically stable. No evidence of leukocytosis. BELEM and severe hypercalcemia. Status post thoracentesis on 06/04/2024, removed 1720 cc. Pleural fluid cell count differential mononuclear predominant. Exudative effusion. Cytology negative for malignant cells. Fluid cultures no growth so far. Vitamin D 1-25 high normal at 65. Previously on vitamin D 25 supplementations. AASHISH levels within normal limits at less than 15. Pleural fluid cholesterol and triglyceride levels pending. Interval update: Ultrasound abdomen coarse echotexture concerning for cirrhosis. Chest x-ray slight worsening of the noted right pleural effusion. Pigtail catheter not draining. Echo pending. Cholesterol levels 45. TG pending - less concerning for chylothorax at this pint of time Plan: -Follow-up with pleural fluid triglycerides levels. -Pigtail catheter in place. Not draining. Easy to pass. Will follow. -DuoNebs every 6 hours on as-needed basis -Continue oxygen supplementation to maintain O2 saturation goal of 90-95%, Weaned to RA this morning as saturating 100% on 2L NC # Thank you for involving pulmonary in this patient care. Will continue to follow.
[2024-06-08] MEDS: ACETAMINOPHEN 325MG TAB 650 MG PO (10:27)
--- NOTE | 2024-06-08 12:33 | P.PN_ITS ---
Subjective *Date: 06/08/24 *Time: 22:27 Interval history: Patient still alert and oriented this morning. Did well eating today. No nausea or vomiting. Interactive on exam. Denies significant dyspnea. On 2 L oxygen. Daughter at bedside Medical Exam Vital signs and Labs for Last 24 Hours: Vital Signs Temp Pulse Pulse Resp BP Pulse Ox O2 Del Method 06/08/24 12:00 70 24 119/58 L 97 Nasal Cannula 06/08/24 11:15 Nasal Cannula 06/08/24 10:00 64 22 114/59 L 96 Nasal Cannula 06/08/24 09:05 Nasal Cannula 06/08/24 08:00 68 24 124/62 100 Nasal Cannula 06/08/24 07:34 Nasal Cannula 06/08/24 06:46 Nasal Cannula 06/08/24 06:00 68 17 147/55 H 100 Nasal Cannula 06/08/24 04:50 Nasal Cannula 06/08/24 04:00 60 06/08/24 04:00 59 L 100 Nasal Cannula 06/08/24 04:00 98.4 F 56 L 19 115/48 L 100 Nasal Cannula 06/08/24 03:00 Nasal Cannula 06/08/24 02:00 58 L 19 113/68 100 Nasal Cannula 06/08/24 01:06 48 L 06/08/24 01:00 Nasal Cannula 06/08/24 00:00 80 06/08/24 00:00 69 21 109/55 L 100 Nasal Cannula 06/07/24 22:59 Nasal Cannula 06/07/24 22:00 98.5 F 06/07/24 22:00 73 26 H 93/56 L 100 Nasal Cannula 06/07/24 21:03 Nasal Cannula 06/07/24 20:00 70 06/07/24 20:00 65 100 Nasal Cannula 06/07/24 20:00 98.5 F 06/07/24 18:36 Nasal Cannula 06/07/24 18:00 63 24 126/62 100 Nasal Cannula 06/07/24 17:05 Nasal Cannula 06/07/24 16:00 70 06/07/24 16:00 Nasal Cannula 06/07/24 16:00 69 24 127/69 100 Nasal Cannula 06/07/24 15:00 Nasal Cannula 06/07/24 14:00 74 24 112/59 L 100 Nasal Cannula 06/07/24 13:05 Nasal Cannula O2 Flow Rate 06/08/24 12:00 2 06/08/24 11:15 2 06/08/24 10:00 2 06/08/24 09:05 2 06/08/24 08:00 2 06/08/24 07:34 2 06/08/24 06:46 2 06/08/24 06:00 2 06/08/24 04:50 2 06/08/24 04:00 06/08/24 04:00 2 06/08/24 04:00 2 06/08/24 03:00 2 06/08/24 02:00 2 06/08/24 01:06 06/08/24 01:00 2 06/08/24 00:00 06/08/24 00:00 2 06/07/24 22:59 2 06/07/24 22:00 06/07/24 22:00 2 06/07/24 21:03 2 06/07/24 20:00 06/07/24 20:00 2 06/07/24 20:00 06/07/24 18:36 2 06/07/24 18:00 2 06/07/24 17:05 2 06/07/24 16:00 06/07/24 16:00 2 06/07/24 16:00 2 06/07/24 15:00 2 06/07/24 14:00 2 06/07/24 13:05 3 Intake and Output 06/07/24 06/08/24 06/08/24 23:59 07:59 15:59 Intake Total 540 / 540 Output Total 500 / 1400 170 / 170 Balance -500 / -1040 -170 / 370 540 / 370 Intake: Intake, Oral Amount 540 / 540 Output: Output, Urine Amount 500 / 1400 170 / 170 Other: Number of Unmeasured Voids 1 0 Number of Bowel Movements 1 Weight 50.167 kg Patient Weight 06/08/24 23:59 Weight 50.167 kg Laboratory Results - last 24 hr 06/08/24 05:29: WBC 5.4, RBC 3.05 L, Hgb 8.9 L, Hct 27.1 L, MCV 88.8, MCH 29.2, MCHC 32.9, RDW 17.6 H, Plt Count 149, MPV 8.2, Neut % (Auto) 74.4, Lymph % (Auto) 12.4, [place] % (Auto) 12.1 H, Eos % (Auto) 0.9, Baso % (Auto) 0.2, Neut # (Auto) 4.0, Lymph # (Auto) 0.7, [place] # (Auto) 0.7, Eos # (Auto) 0.1, Baso # (Auto) 0.0, Sodium 124 L, Potassium 3.1 L, Chloride 93 L, Carbon Dioxide 25, Anion Gap 9.1, BUN 36 H, Creatinine 1.80 H, Estimated Creat Clear 21, Estimated GFR 27 L, Est GFR ( Amer) 33 L, Glucose 84, Calcium 9.2, Magnesium 1.8 D , Total Bilirubin 0.6, AST 34, ALT 16, Alkaline Phosphatase 101, Total Protein 4.6 L, Albumin 2.7 L, Globulin 1.9, Albumin/Globulin Ratio 1.4 I & O for Labs for Last 24 Hours: Intake & Output 06/05/24 06/06/24 06/07/24 06/08/24 23:59 23:59 23:59 23:59 Intake Total 2587 / 2587 1420 / 1420 360 / 360 540 / 540 Output Total 510 / 735 825 / 825 1400 / 1400 170 / 170 Balance 2077 / 1852 595 / 595 -1040 / -1040 370 / 370 Weight 50.893 kg 51.619 kg 51.619 kg 50.167 kg Microbiology Reports for the Last 24 Hours: Microbiology 06/05/24 15:15 Blood Blood Culture - Preliminary NO GROWTH AFTER 48 HOURS 06/05/24 15:15 Blood Blood Culture - Preliminary NO GROWTH AFTER 48 HOURS Constitutional: Present no acute distress, thin, chronically ill appearing and cooperative Head: Present atraumatic and normocephalic ENT: Present normal exam Neck: Present normal inspection Respiratory: Present prolonged expiratory phase, rhonchi, wheezes, crackles (most prominent in right lung fried) and normal respiratory effort Comment:: small bore catheter in right mid axillary line Cardiac: Present Reg Rate and Rhythm GI: Present soft and normal bowel sounds; Absent distention or tenderness Extremities: Present normal inspection and full ROM Skin: Present intact; Absent erythema Neuro: Present Grossly Intact, alert, awake and moves all extremities Comment:: Oriented to self, and situation, more interactive on exam today Assessment and Plan *Assessment and plan (1) Serum calcium elevated: Status: Acute Category: Medical Code(s): E83.52 - Hypercalcemia (2) Recurrent right pleural effusion: Status: Acute Category: Medical Code(s): J90 - Pleural effusion, not elsewhere classified (3) Diastolic CHF: Status: Acute Qualifiers: Heart failure chronicity: chronic Qualified Code(s): I50.32 - Chronic diastolic (congestive) heart failure Category: Medical Code(s): I50.30 - Unspecified diastolic (congestive) heart failure (4) SOB (shortness of breath): Status: Acute Category: Medical Code(s): R06.02 - Shortness of breath (5) Acute kidney injury superimposed on CKD: Status: Acute Category: Medical Code(s): N17.9 - Acute kidney failure, unspecified; N18.9 - Chronic kidney disease, unspecified (6) Mediastinal lymphadenopathy: Status: Acute Category: Medical Code(s): R59.0 - Localized enlarged lymph nodes (7) Pulmonary nodules/lesions, multiple: Status: Acute Category: Medical Code(s): R91.8 - Other nonspecific abnormal finding of lung field (8) Non-Hodgkin lymphoma: Status: Acute Category: Medical Code(s): C85.90 - Non-Hodgkin lymphoma, unspecified, unspecified site (9) HTN (hypertension): Status: Chronic Qualifiers: Hypertension type: essential hypertension Qualified Code(s): I10 - Essential (primary) hypertension Category: Medical Code(s): I10 - Essential (primary) hypertension (10) HLD (hyperlipidemia): Status: Chronic Qualifiers: Hyperlipidemia type: mixed hyperlipidemia Qualified Code(s): E78.2 - Mixed hyperlipidemia Category: Medical Code(s): E78.5 - Hyperlipidemia, unspecified (11) Lymphoma: Status: Chronic Qualifiers: Lymphoma type: unspecified type Lymphoma site: unspecified region Qualified Code(s): C85.90 - Non-Hodgkin lymphoma, unspecified, unspecified site Category: Medical Code(s): C85.90 - Non-Hodgkin lymphoma, unspecified, unspecified site (12) Severe protein-calorie malnutrition: Status: Acute Category: Medical Code(s): E43 - Unspecified severe protein-calorie malnutrition Plan 78 years old female with PMHx non-Hodgkin lymphoma, pulmonary hypertension, diastolic CHF, A-fib on chronic anticoagulation, hypertension hyperlipidemia CAD right pleural effusion, presented to [facility] ER complaining for shortness of breath. While was in the ER lab was significant for hypercalcemia 16.9, creatinine of 1.9, hemoglobin 10. 5. CT of the chest was obtained, concerning for a large right pleural effusion with worsening. Numerous small nodules present in the right thigh the upper right nodule are smaller than prior atelectasis in the right middle lobe extensive lymphadenopathy within the mediastinum. This finding were discussed with the referring provider. Patient transferred to our institution for further management. Has undergone thoracentesis twice. Once on 06/03 with drainage of 1700 cc of fluid. Repeat drainage on 06/05 with 1600 cc off. Remains tenuous but comfortable on room air today. Per my review of chest imaging, x-ray shows increasing effusion again. Continuing antibiotics empirically with Levaquin every 48 hours. Continues to require inpatient management. Goals of care discussion daily problems addressed as follows. Acute hypoxemic respiratory failure secondary to recurrent right pleural effusion: Pulmonary nodules Mediastinal lymphadenopathy History of non-Hodgkin follicular lymphoma - Discussed case with pulmonology today, will attempt to pull fluid off again today. Will extract catheter 4 cm and then try to evacuate any remaining effusion given worsening chest x-ray. Will resend cell count, cytology, triglycerides. - Continue DuoNebs every 6 hours as needed. Continue supplemental oxygen as needed for O2 sats greater than 90%. Still awaiting triglyceride and cholesterol levels from effusion. -White count normal at 5.4. Continue Levaquin 750 mg every 48 hours renally dosed. Reevaluate antibiotics over the next 48 hours. - Blood cultures pending; Repeat CBC, CMP, magnesium ordered for the morning. -Remove catheter after drainage today -Right upper quadrant ultrasound showing cirrhosis/nodular appearance of liver. -Fluid studies not consistent with chylothorax. BELEM on CKD. Prerenal likely due to excessive diuresis Hypercalcemia secondary to malignancy versus hemoconcentration Calcium 9.2 this morning. Kidney function with BUN improved to 36, creatinine 1.8. - Status post calcitonin x 1, zoledronic acid x 1. Caution with further fluids given rapid recollection of pleural effusion. -Magnesium 1.8, potassium 3.1. Will replace orally her potassium x 3 today with 20 mEq. 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 Review of chart shows echo from 2 years ago with severely elevated right-sided pressures, RVSP in the 70s. Patient also has severe valvular disease. -Repeat echo shows severe right-sided dilation and elevated RVSP. Congestive heart failure could account for fluid collection, turbidity of fluid however concerning. Continue aggressive diuresis with Bumex 1 mg IV twice daily. hyperlipidemia, gout Patient on allopurinol and atorvastatin, resume pending improvement kidney function On Protonix for GERD. Cardiac diet. Small frequent portions. High-calorie diet Full code
[2024-06-08 18:08] LABS: Appearance,Body Fld. Turbid; Source, Body Fld. Pleural Fluid; Volume,Body Fld. 45 mL
[2024-06-08 18:24] LABS: RBC,Body Fluid < 10 cells/uL (< 10 X 10^3); TNC,Body Fluid 1213 cells/uL (< 1000)
[2024-06-08 19:44] LABS: Mononuclear WBCs,Body Fluid 59 %
[2024-06-08 19:45] LABS: Polynuclear WBC,Body Fluid 41 %
[2024-06-08] MEDS: ATORVASTATIN 20MG TABLET 20 MG PO (20:15)
[2024-06-09] VITALS (10 sets, daily range): BP systolic 104–134; BP diastolic 47–61; PULSE 60–80; RESP 15–20; TEMP 36.5–36.9; O2SAT 95–100; BMI 22.3
--- NOTE | 2024-06-09 04:53 | PC.NURSE ---
Patient has remained stable throughout nightshift without needs or concerns. Adequate urinary output up to bedside with assist x1. Remains on NC. NAD, VSS otherwise.
[2024-06-09] MEDS: FLUTICASONE/SALMETEROL 250/50MCG DISKUS 1 PUFF IH ×2 (06:24→20:41)
[2024-06-09 06:29] LABS: Albumin Level 2.6 g/dl (3.5-5.0); Chloride 98 mmol/L (98-107)
[2024-06-09 06:30] LABS: Potassium 3.6 mmoL/L (3.5-5.1); Sodium 128 mmol/L (136-145)
[2024-06-09 06:32] LABS: Alanine Aminotransferase 20 U/L (12-78); Alkaline Phosphatase 125 U/L (38-126); Anion Gap 7.6 mEq/L (5-15); Aspartate Amino Transferase 41 U/L (14-36); Bilirubin,Total 0.5 mg/dl (0.2-1.3); Blood Urea Nitrogen 37 mg/dl (7-17); Carbon Dioxide 26 mmol/L (22.0-30.0); Creatinine Clearance Estimated 18 mL/min (50-200); Estimated Glomerular Filt Rate 24 ml/min (>60); GFR (African American) 29 ML/MIN (>60)
[2024-06-09 06:33] LABS: Albumin/Globulin Ratio 1.2 (1.1-1.8); Globulin 2.1 g/dL (1.3-3.2); Glucose 86 mg/dl (74-100); Total Protein,Serum 4.7 g/dl (6.3-8.2)
[2024-06-09 06:55] LABS: Eosinophils % 0.9 % (0.1-12.0); Mean Corpuscular Hemoglobin 28.8 pg (27.0-31.2); Monocytes # 0.5 K/mm3 (0.1-1.0); Neutrophils # 3.7 K/mm3 (1.8-7.8); Red Blood Count 3.39 M/mm3 (4.20-5.40)
[2024-06-09 07:03] LABS: Basophils % 0.2 % (0.1-2.0); Eosinophils # 0.1 K/mm3 (0.0-0.4); Hematocrit 30.3 % (37.0-47.0); Lymphocytes # 0.6 K/mm3 (0.7-4.5); Lymphocytes % 12.7 % (10-50); Mean Corpuscular HGB Conc 32.3 g/dL (31.8-35.4); Mean Corpuscular Volume 89.2 fl (81-99); Mean Platelet Volume 8.3 fl (7.4-10.4); Monocytes % 10.3 % (1.7-9.3); Neutrophils % 75.9 % (37.0-80.0); Platelet Count 181 K/mm3 (142-424); Red Cell Distribution Width 17.5 % (11.5-17.5); White Blood Count 4.9 K/mm3 (4.8-10.8)
[2024-06-09 07:06] LABS: Hemoglobin 9.8 g/dL (12.2-16.2)
[2024-06-09 07:41] LABS: Magnesium 1.7 mg/dl (1.6-2.3)
[2024-06-09] MEDS: ENOXAPARIN 30MG/0.3ML SYRINGE 30 MG SQ (08:22)
[2024-06-09] MEDS: PANTOPRAZOLE 40MG TABLET 40 MG PO (08:23)
[2024-06-09] MEDS: BUMETANIDE 1MG/4ML VIAL 1 MG IV (08:23)
[2024-06-09] MEDS: POTASSIUM CHLORIDE 20MEQ TAB 20 MEQ PO ×3 (08:23→21:02)
--- NOTE | 2024-06-09 09:38 | P.PN_ITS ---
Subjective *Date: 06/09/24 *Time: 11:26 Interval history: No acute respiratory vents overnight. Patient denies any new respiratory complaints. On room air saturating 96%. Pulmonology Exam Inpatient Vital signs and Labs for Last 24 Hours: Temp Pulse Resp BP Pulse Ox O2 Del Method O2 Flow Rate 98.5 F 72 18 104/49 L 100 Room Air 2 06/09/24 08:00 06/09/24 08:00 06/09/24 08:00 06/09/24 08:00 06/09/24 08:00 06/09/24 08:00 06/09/24 08:00 FiO2 28 06/08/24 23:22 Laboratory Results - last 24 hr 06/08/24 17:57: Fluid Source Pleural fluid, Fluid Volume 45, Fluid Appearance Turbid, Fluid RBC (Auto) < 10, Fld Tot Nucleated Cell 1213, Fld Polynuclear WBCs % 41, Fld Mononuclear WBCs % 59 06/09/24 05:28: WBC 4.9, RBC 3.39 L, Hgb 9.8 L D, Hct 30.3 L, MCV 89.2, MCH 28.8, MCHC 32.3, RDW 17.5, Plt Count 181, MPV 8.3, Neut % (Auto) 75.9, Lymph % (Auto) 12.7, [place] % (Auto) 10.3 H, Eos % (Auto) 0.9, Baso % (Auto) 0.2, Neut # (Auto) 3.7, Lymph # (Auto) 0.6 L, [place] # (Auto) 0.5, Eos # (Auto) 0.1, Baso # (Auto) 0.0, Sodium 128 L, Potassium 3.6, Chloride 98, Carbon Dioxide 26, Anion Gap 7.6, BUN 37 H, Creatinine 2.00 H, Estimated Creat Clear 18, Estimated GFR 24 L, Est GFR ( Amer) 29 L, Glucose 86, Calcium 9.0, Magnesium 1.7, Total Bilirubin 0.5, AST 41 H, ALT 20, Alkaline Phosphatase 125, Total Protein 4.7 L, Albumin 2.6 L, Globulin 2.1, Albumin/Globulin Ratio 1.2 I & O for Labs for Last 24 Hours: Intake & Output 06/06/24 06/07/24 06/08/24 06/09/24 23:59 23:59 23:59 23:59 Intake Total 1420 / 1420 360 / 360 980 / 980 270 / 270 Output Total 825 / 825 1400 / 1400 870 / 870 550 / 550 Balance 595 / 595 -1040 / -1040 110 / 110 -280 / -280 Weight 113 lb 12.8 oz 113 lb 12.807 oz 110 lb 9.6 oz 110 lb 9.589 oz Microbiology Reports for the Last 24 Hours: Microbiology 06/08/24 17:57 Pleural Fluid Gram Stain - Final Assessment and Plan *Assessment and plan (1) Recurrent right pleural effusion: Status: Acute Category: Medical Code(s): J90 - Pleural effusion, not elsewhere classified (2) Pulmonary nodules/lesions, multiple: Status: Acute Category: Medical Code(s): R91.8 - Other nonspecific abnormal finding of lung field (3) Pleural effusion on right: Status: Acute Category: Medical Code(s): J90 - Pleural effusion, not elsewhere classified Plan Ms. Portillo is a 78-year-old female never smoker prior history of multiple pulmonary nodules mediastinal hilar lymphadenopathy calcified, chronic hypoxic respiratory failure questionable rheumatoid arthritis severe pulmonary hypertension based on echocardiogram with RVSP of 78 recently seen in pulmonary clinic for exertional dyspnea due to follow-up with lab work and pulmonary testing admitted to the hospital complaining of worsening shortness of breath and pulmonary was called for further evaluation and management. Patient presented to outside hospital during which she was noted to have worsening right pleural effusion hypercalcemia and worsening renal function and was requested to be transferred to [facility]. Chest x-ray on admission showed large right pleural effusion. Afebrile. Hemodynamically stable. No evidence of leukocytosis. BELEM and severe hypercalcemia. Status post thoracentesis on 06/04/2024, removed 1720 cc. Pleural fluid cell count differential mononuclear predominant. Exudative effusion. Cytology negative for malignant cells. Fluid cultures no growth so far. Vitamin D 1-25 high normal at 65. Previously on vitamin D 25 supplementations. AASHISH levels within normal limits at less than 15. Ultrasound abdomen coarse echotexture concerning for cirrhosis. Interval update: Tolerating on room air saturating 96% and above this morning. Status post pleural fluid drainage yesterday at 750 cc. Recent pleural fluid differential Gram stain culture and pleural fluid cytology. Will follow-up with the results. Plan to initiate cirrhotic protocol diuresis regimen. Evaluating possible etiologies of patient cirrhosis. Not an alcoholic. Echo normal EF with septal flattening and increased right-sided pressures. RV severely hypokinetic with estimated RVSP at 60. Benefit from RHC and Right pressure evaluation, will discuss with cardiology Plan: -Follow-up with initial tap pleural fluid triglycerides levels. -DuoNebs every 6 hours on as-needed basis -Continue oxygen supplementation to maintain O2 saturation goal of 90-95%, Weaned to RA this morning as saturating 100% on 2L NC # Thank you for involving pulmonary in this patient care. Will continue to follow.
--- NOTE | 2024-06-09 09:39 | XR_ITS ---
FINAL REPORT CLINICAL HISTORY: Effusion Pleural COMPARISON: 06/08/2024 FINDINGS: A single portable view of the chest was obtained. Cardiomegaly remained stable in this patient who has undergone a prior midline sternotomy. There is persistent opacification of the lung fried bilaterally. A small to moderate right pleural effusion is slightly improved. A small left pleural effusion remains present. The bony thorax is intact. IMPRESSION: Persistent opacification of the lung fried bilaterally persists, with slight improvement in the small to moderate right pleural effusion and a stable left pleural effusion. Reviewed, Interpreted and Dictated by Faustino Pineda III, MD Transcribed by Scarlett Huff Authenticated and [facility]
[2024-06-09] MEDS: levoFLOXacin 500MG TAB 500 MG PO (11:39)
[2024-06-09] MEDS: ONDANSETRON 4MG/2ML VIAL 4 MG IV (12:37)
--- NOTE | 2024-06-09 12:40 | EXP.ACUTE.PN ---
Subjective *Date: 06/09/24 *Time: 12:40 Interval history: Feeling better this morning. Stable on room air after drainage of 700 cc of fluid from her right pleural space yesterday. No nausea or vomiting overnight. No fever. Tolerating p.o. intake. Medical Exam Vital signs and Labs for Last 24 Hours: Vital Signs Temp Pulse Pulse Resp BP Pulse Ox O2 Del Method 06/09/24 12:00 97.9 F 06/09/24 12:00 70 06/09/24 12:00 73 18 111/55 L 100 Room Air 06/09/24 11:00 Room Air 06/09/24 10:00 74 18 134/54 L 98 Room Air 06/09/24 08:00 80 06/09/24 08:00 Room Air 06/09/24 08:00 98.5 F 06/09/24 08:00 72 18 104/49 L 100 Nasal Cannula 06/09/24 07:45 Nasal Cannula 06/09/24 06:00 73 18 111/53 L 98 Nasal Cannula 06/09/24 04:00 60 06/09/24 04:00 62 15 105/53 L 97 Nasal Cannula 06/09/24 04:00 97.7 F 06/09/24 02:00 64 15 109/61 L 99 Nasal Cannula 06/09/24 00:00 70 06/09/24 00:00 62 20 111/47 L 99 Nasal Cannula 06/08/24 23:36 98.9 F 06/08/24 23:22 Nasal Cannula 06/08/24 22:00 65 22 92/56 L 100 Nasal Cannula 06/08/24 20:00 80 06/08/24 20:00 98.9 F 06/08/24 18:00 63 16 109/64 L 98 Nasal Cannula 06/08/24 16:37 Nasal Cannula 06/08/24 16:05 Nasal Cannula 06/08/24 16:00 60 06/08/24 16:00 63 24 130/68 99 Nasal Cannula 06/08/24 15:05 Nasal Cannula 06/08/24 14:00 70 24 107/62 L 98 Nasal Cannula 06/08/24 13:00 Nasal Cannula O2 Flow Rate FiO2 06/09/24 12:00 06/09/24 12:00 06/09/24 12:00 06/09/24 11:00 06/09/24 10:00 06/09/24 08:00 06/09/24 08:00 06/09/24 08:00 06/09/24 08:00 2 06/09/24 07:45 06/09/24 06:00 2 06/09/24 04:00 06/09/24 04:00 2 06/09/24 04:00 06/09/24 02:00 2 06/09/24 00:00 06/09/24 00:00 2 06/08/24 23:36 06/08/24 23:22 2 28 06/08/24 22:00 2 06/08/24 20:00 06/08/24 20:00 06/08/24 18:00 2 06/08/24 16:37 2 06/08/24 16:05 2 06/08/24 16:00 06/08/24 16:00 2 06/08/24 15:05 2 06/08/24 14:00 2 06/08/24 13:00 2 Intake and Output 06/08/24 06/09/24 06/09/24 23:59 07:59 15:59 Intake Total 200 / 980 0 / 270 270 / 270 Output Total 550 / 850 300 / 850 Balance 200 / 110 -550 / -580 -30 / -580 Intake: Intake, Oral Amount 200 / 980 0 / 270 270 / 270 Output: Output, Urine Amount 550 / 850 300 / 850 Other: Number of Unmeasured Voids 1 0 Number of Bowel Movements 1 Weight 50.167 kg Patient Weight 06/09/24 23:59 Weight 50.167 kg Laboratory Results - last 24 hr 06/08/24 17:57: Fluid Source Pleural fluid, Fluid Volume 45, Fluid Appearance Turbid, Fluid RBC (Auto) < 10, Fld Tot Nucleated Cell 1213, Fld Polynuclear WBCs % 41, Fld Mononuclear WBCs % 59 06/09/24 05:28: WBC 4.9, RBC 3.39 L, Hgb 9.8 L D, Hct 30.3 L, MCV 89.2, MCH 28.8, MCHC 32.3, RDW 17.5, Plt Count 181, MPV 8.3, Neut % (Auto) 75.9, Lymph % (Auto) 12.7, [place] % (Auto) 10.3 H, Eos % (Auto) 0.9, Baso % (Auto) 0.2, Neut # (Auto) 3.7, Lymph # (Auto) 0.6 L, [place] # (Auto) 0.5, Eos # (Auto) 0.1, Baso # (Auto) 0.0, Sodium 128 L, Potassium 3.6, Chloride 98, Carbon Dioxide 26, Anion Gap 7.6, BUN 37 H, Creatinine 2.00 H, Estimated Creat Clear 18, Estimated GFR 24 L, Est GFR ( Amer) 29 L, Glucose 86, Calcium 9.0, Magnesium 1.7, Total Bilirubin 0.5, AST 41 H, ALT 20, Alkaline Phosphatase 125, Total Protein 4.7 L, Albumin 2.6 L, Globulin 2.1, Albumin/Globulin Ratio 1.2 I & O for Labs for Last 24 Hours: Intake & Output 06/06/24 06/07/24 06/08/24 06/09/24 23:59 23:59 23:59 23:59 Intake Total 1420 / 1420 360 / 360 980 / 980 270 / 270 Output Total 825 / 825 1400 / 1400 870 / 870 850 / 850 Balance 595 / 595 -1040 / -1040 110 / 110 -580 / -580 Weight 51.619 kg 51.619 kg 50.167 kg 50.167 kg Microbiology Reports for the Last 24 Hours: Microbiology 06/03/24 12:20 Pleural Fluid Gram Stain - Final 06/03/24 12:20 Pleural Fluid Body Fluid Culture - Final NO GROWTH AFTER 5 DAYS 06/08/24 17:57 Pleural Fluid Gram Stain - Final Constitutional: Present no acute distress, thin, chronically ill appearing and cooperative Head: Present atraumatic and normocephalic ENT: Present normal exam Neck: Present normal inspection Respiratory: Present prolonged expiratory phase, rhonchi, wheezes, crackles (Interval improvement, improved aeration on right side) and normal respiratory effort Cardiac: Present Reg Rate and Rhythm GI: Present soft and normal bowel sounds; Absent distention or tenderness Extremities: Present normal inspection and full ROM Skin: Present intact; Absent erythema Neuro: Present Grossly Intact, alert, awake, oriented x 3 and moves all extremities Assessment and Plan *Assessment and plan (1) Serum calcium elevated: Status: Acute Category: Medical Code(s): E83.52 - Hypercalcemia (2) Recurrent right pleural effusion: Status: Acute Category: Medical Code(s): J90 - Pleural effusion, not elsewhere classified (3) Diastolic CHF: Status: Acute Qualifiers: Heart failure chronicity: chronic Qualified Code(s): I50.32 - Chronic diastolic (congestive) heart failure Category: Medical Code(s): I50.30 - Unspecified diastolic (congestive) heart failure (4) SOB (shortness of breath): Status: Acute Category: Medical Code(s): R06.02 - Shortness of breath (5) Acute kidney injury superimposed on CKD: Status: Acute Category: Medical Code(s): N17.9 - Acute kidney failure, unspecified; N18.9 - Chronic kidney disease, unspecified (6) Mediastinal lymphadenopathy: Status: Acute Category: Medical Code(s): R59.0 - Localized enlarged lymph nodes (7) Pulmonary nodules/lesions, multiple: Status: Acute Category: Medical Code(s): R91.8 - Other nonspecific abnormal finding of lung field (8) Non-Hodgkin lymphoma: Status: Acute Category: Medical Code(s): C85.90 - Non-Hodgkin lymphoma, unspecified, unspecified site (9) HTN (hypertension): Status: Chronic Qualifiers: Hypertension type: essential hypertension Qualified Code(s): I10 - Essential (primary) hypertension Category: Medical Code(s): I10 - Essential (primary) hypertension (10) HLD (hyperlipidemia): Status: Chronic Qualifiers: Hyperlipidemia type: mixed hyperlipidemia Qualified Code(s): E78.2 - Mixed hyperlipidemia Category: Medical Code(s): E78.5 - Hyperlipidemia, unspecified (11) Lymphoma: Status: Chronic Qualifiers: Lymphoma type: unspecified type Lymphoma site: unspecified region Qualified Code(s): C85.90 - Non-Hodgkin lymphoma, unspecified, unspecified site Category: Medical Code(s): C85.90 - Non-Hodgkin lymphoma, unspecified, unspecified site (12) Severe protein-calorie malnutrition: Status: Acute Category: Medical Code(s): E43 - Unspecified severe protein-calorie malnutrition Plan 78 years old female with PMHx non-Hodgkin lymphoma, pulmonary hypertension, diastolic CHF, A-fib on chronic anticoagulation, hypertension hyperlipidemia CAD right pleural effusion, presented to [facility] ER complaining for shortness of breath. While was in the ER lab was significant for hypercalcemia 16.9, creatinine of 1.9, hemoglobin 10. 5. CT of the chest was obtained, concerning for a large right pleural effusion with worsening. Numerous small nodules present in the right thigh the upper right nodule are smaller than prior atelectasis in the right middle lobe extensive lymphadenopathy within the mediastinum. This finding were discussed with the referring provider. Patient transferred to our institution for further management. Has undergone thoracentesis twice. Once on 06/03 with drainage of 1700 cc of fluid. Repeat drainage on 06/05 with 1600 cc off. 700 cc removed 06/08. On room air today. Chest x-ray personally reviewed today showing improvement. Completed 5 days of antibiotics. Clinically appears stable or discharge when accepted for rehab. Cotinues to require inpatient management. Goals of care discussion daily. Problems addressed as follows. Acute hypoxemic respiratory failure secondary to recurrent right pleural effusion: Pulmonary nodules Mediastinal lymphadenopathy History of non-Hodgkin follicular lymphoma - Discussed case with pulmonology today, stable to discharge to rehab. Will continue to follow fluid studies. Continue diuresis. Oxygen as needed. - Continue DuoNebs every 6 hours as needed. Continue supplemental oxygen as needed for O2 sats greater than 90%. -White count normal at 4.9. Completing 5 days of Levaquin today. Repeat CBC, CMP, magnesium ordered for the morning. -Right upper quadrant ultrasound showing cirrhosis/nodular appearance of liver. -Fluid studies not consistent with chylothorax. -Awaiting repeat cell count, cytology, Gram stain. BELEM on CKD. Prerenal likely due to excessive diuresis Hypercalcemia secondary to malignancy versus hemoconcentration Calcium 9.0 this morning. Kidney function with BUN improved to 37, creatinine 2.0. - Status post calcitonin x 1, zoledronic acid x 1. Caution with further fluids given rapid recollection of pleural effusion. 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 Review of chart shows echo from 2 years ago with severely elevated right-sided pressures, RVSP in the 70s. Patient also has severe valvular disease. -Repeat echo shows severe right-sided dilation and elevated RVSP. Congestive heart failure could account for fluid collection, turbidity of fluid however concerning for chronic effusion versus secondary to her lymphoma versus infection. - Continue aggressive diuresis with Bumex 1 mg IV twice daily. hyperlipidemia, gout Patient on allopurinol and atorvastatin, resume pending improvement kidney function On Protonix for GERD. Cardiac diet. Small frequent portions. High-calorie diet Full code Evaluated by therapy, needs placement. Awaiting acceptance by facility and prior Auth from insurance.
--- NOTE | 2024-06-09 13:51 | P.CONCA_ITS ---
History of Present Illness History of Present Illness Consult date: 06/09/24 Requesting physician: Enrique Yadav Chief complaint: Shortness of breath History of present illness: 79-year-old white female established patient of our office with history of CAD status post CABG, paroxysmal atrial fibrillation, HFpEF with known severe RV dilation and elevated RVSP with severe biatrial dilation, severe TR since 2021. Recently presented to [facility] ER with worsening weakness and confusion as well as shortness of breath diarrhea and UTI. She had a worsening right-sided effusion with hypercalcemia and BELEM so she was transferred to this facility. On arrival here calcium 16.9, creatinine 1.9, hemoglobin 10. CT showed large right effusion with extensive lymphadenopathy in the mediastinum secondary to her known non-Hodgkin's lymphoma. On June 03 she had 1700 mL thoracentesis and again on June 05 at 1600 mL thoracentesis follow-up scan reveals slowing accumulation. We were consulted overnight to help manage diastolic dysfunction. She reports feeling significantly better. Long discussion with patient and her daughter who is bedside. Patient is interested in transfer to rehab facility for a short stay and then home with hospice care. She is not interested in any interventional procedures at this time. [facility] Disclaimer: The information contained in this section may have been updated after the patient was seen, as this information can be updated by other users. Medical History Pleural effusion on right LVH (left ventricular hypertrophy) Mediastinal lymphadenopathy Hilar lymphadenopathy Chronic respiratory failure with hypoxia Dyspnea on exertion Dizziness Bradycardia Fatigue Atrial fibrillation with RVR Osteoporosis Serum calcium elevated Elevated parathyroid hormone Parathyroid hormone excess Thyroid cyst HLD (hyperlipidemia) HTN (hypertension) Dyspnea Atrial fibrillation CAD (coronary artery disease) Abnormal EKG Surgical History Hx of CABG Stented coronary artery Family History Other Asthma Cancer Heart attack Hypertension Social History Smoking Status: Never smoker alcohol intake: never substance use type: denies use current occupational status: retired Travel in the last 8 weeks: None household members: children Review of Systems Constitutional Constitutional: Reports fatigue and Reports weakness Eyes Eyes: Denies loss of vision ENT Ears, Nose, Mouth, and Throat: Denies hearing loss and Denies vertigo *Cardiovascular Cardiovascular: Denies chest pain, Reports dyspnea and Denies syncope *Respiratory Respiratory: Denies cough and Reports dyspnea *Gastrointestinal Gastrointestinal: Denies change in stool character, Denies nausea and Denies vomiting *Musculoskeletal Musculoskeletal: Denies muscle weakness Integumentary/Breasts Skin/Breast: Denies changing lesions *Neurologic Neurologic: Denies loss of vision, Denies syncope, Denies vertigo and Reports weakness Endocrine Endocrine: Reports fatigue Exam Data for Last 24 hours Vital signs and Labs for Last 24 Hours: Temp Pulse Resp BP Pulse Ox O2 Del Method O2 Flow Rate 97.9 F 73 18 111/55 L 100 Room Air 2 06/09/24 12:00 06/09/24 12:00 06/09/24 12:00 06/09/24 12:00 06/09/24 12:00 06/09/24 13:00 06/09/24 08:00 FiO2 28 06/08/24 23:22 Laboratory Results - last 24 hr 06/08/24 17:57: Fluid Source Pleural fluid, Fluid Volume 45, Fluid Appearance Turbid, Fluid RBC (Auto) < 10, Fld Tot Nucleated Cell 1213, Fld Polynuclear WBCs % 41, Fld Mononuclear WBCs % 59 06/09/24 05:28: WBC 4.9, RBC 3.39 L, Hgb 9.8 L D, Hct 30.3 L, MCV 89.2, MCH 28.8, MCHC 32.3, RDW 17.5, Plt Count 181, MPV 8.3, Neut % (Auto) 75.9, Lymph % (Auto) 12.7, [place] % (Auto) 10.3 H, Eos % (Auto) 0.9, Baso % (Auto) 0.2, Neut # (Auto) 3.7, Lymph # (Auto) 0.6 L, [place] # (Auto) 0.5, Eos # (Auto) 0.1, Baso # (Auto) 0.0, Sodium 128 L, Potassium 3.6, Chloride 98, Carbon Dioxide 26, Anion Gap 7.6, BUN 37 H, Creatinine 2.00 H, Estimated Creat Clear 18, Estimated GFR 24 L, Est GFR ( Amer) 29 L, Glucose 86, Calcium 9.0, Magnesium 1.7, Total Bilirubin 0.5, AST 41 H, ALT 20, Alkaline Phosphatase 125, Total Protein 4.7 L, Albumin 2.6 L, Globulin 2.1, Albumin/Globulin Ratio 1.2 I & O for Last 24 hours: Intake & Output 06/06/24 06/07/24 06/08/24 06/09/24 23:59 23:59 23:59 23:59 Intake Total 1420 / 1420 360 / 360 980 / 980 270 / 270 Output Total 825 / 825 1400 / 1400 870 / 870 850 / 850 Balance 595 / 595 -1040 / -1040 110 / 110 -580 / -580 Weight 113 lb 12.8 oz 113 lb 12.807 oz 110 lb 9.6 oz 110 lb 9.589 oz Microbiology Reports for the Last 24 Hours: Microbiology 06/03/24 12:20 Pleural Fluid Gram Stain - Final 06/03/24 12:20 Pleural Fluid Body Fluid Culture - Final NO GROWTH AFTER 5 DAYS 06/08/24 17:57 Pleural Fluid Gram Stain - Final Constitutional Constitutional: no acute distress, thin and cooperative *Routine HEENT Exam Eye: Present PERRL *Routine Respiratory Exam Respiratory: Present CTA bilaterally; Absent accessory muscle use, wheezes or crackles *Routine Cardiovascular Exam Cardiovascular: Present RRR, Normal S1 and Normal S2; Absent murmur, gallop or rubs *Routine Abdominal Exam Abdominal: Present soft; Absent tenderness *Routine Extremities Exam Extremities: Present pulses intact; Absent cyanosis or edema *Routine Skin Exam Skin: Present intact; Absent erythema or wounds *Routine Neurological Exam Neurological: Present alert and oriented X3 Routine Psychiatric Exam Psychiatric: Present cooperative Meds Home Medications and Allergies Home Medications ?Medication ?Instructions ?Recorded ?Confirmed ?Type famotidine 20 mg tablet 20 mg PO BID GERD 10/09/20 06/03/24 History fluticasone 250 mcg-salmeterol 50 1 inh inhalation BID 10/09/20 06/03/24 History mcg/dose blistr powdr for inhalation albuterol sulfate 90 mcg/actuation 2 puff inhalation Q4HP PRN 03/12/21 06/03/24 History aerosol inhaler Shortness Of Breath Or Wheezing cholecalciferol (vitamin D3) 25 25 mcg PO DAILY Diet supplement 02/16/22 08/01/24 History mcg (1,000 unit) tablet cyanocobalamin (vitamin B-12) 50 mcg PO DAILY Diet supplement 12/19/21 06/03/24 History 2,500 mcg tablet atorvastatin 20 mg tablet 20 mg PO HS 30 days #30 tabs 12/21/21 06/03/24 Rx metolazone 2.5 mg tablet 2.5 mg PO MOWEFR 05/17/24 06/03/24 History furosemide 80 mg tablet 80 mg PO Q48H 06/03/24 06/03/24 History New Prescriptions to Start Prescriptions: Allergies Allergy/AdvReac Type Severity Reaction Status Date / Time Iodinated Contrast Media Allergy Verified 06/03/24 02:35 azithromycin AdvReac Verified 06/03/24 02:35 cefuroxime AdvReac Verified 06/03/24 02:35 doxycycline AdvReac Verified 06/03/24 02:35 Assessment and Plan *Assessment and plan (1) Recurrent right pleural effusion: Status: Acute Category: Medical Code(s): J90 - Pleural effusion, not elsewhere classified (2) (HFpEF) heart failure with preserved ejection fraction: Status: Acute Category: Medical Code(s): I50.30 - Unspecified diastolic (congestive) heart failure (3) Serum calcium elevated: Status: Acute Category: Medical Code(s): E83.52 - Hypercalcemia (4) SOB (shortness of breath): Status: Acute Category: Medical Code(s): R06.02 - Shortness of breath (5) Acute kidney injury superimposed on CKD: Status: Acute Category: Medical Code(s): N17.9 - Acute kidney failure, unspecified; N18.9 - Chronic kidney disease, unspecified (6) Mediastinal lymphadenopathy: Status: Acute Category: Medical Code(s): R59.0 - Localized enlarged lymph nodes (7) Pulmonary nodules/lesions, multiple: Status: Acute Category: Medical Code(s): R91.8 - Other nonspecific abnormal finding of lung field (8) Non-Hodgkin lymphoma: Status: Acute Category: Medical Code(s): C85.90 - Non-Hodgkin lymphoma, unspecified, unspecified site (9) HTN (hypertension): Status: Chronic Qualifiers: Hypertension type: essential hypertension Qualified Code(s): I10 - Essential (primary) hypertension Category: Medical Code(s): I10 - Essential (primary) hypertension (10) HLD (hyperlipidemia): Status: Chronic Qualifiers: Hyperlipidemia type: mixed hyperlipidemia Qualified Code(s): E78.2 - Mixed hyperlipidemia Category: Medical Code(s): E78.5 - Hyperlipidemia, unspecified (11) Lymphoma: Status: Chronic Qualifiers: Lymphoma type: unspecified type Lymphoma site: unspecified region Qualified Code(s): C85.90 - Non-Hodgkin lymphoma, unspecified, unspecified site Category: Medical Code(s): C85.90 - Non-Hodgkin lymphoma, unspecified, unspecified site (12) Severe protein-calorie malnutrition: Status: Acute Category: Medical Code(s): E43 - Unspecified severe protein-calorie malnutrition Plan Recurrent Large Right Pleural Effusion s/p thoracentesis - 06/03 - 1699 - 06/05 -1599 - consider pleur-x HFpEF, acute on chronic -Known diagnosis since 2021 with severe RV dilation, severely elevated RVSP, severe biatrial dilation, severe TR, mild , normal EF -Recurrent large pericardial effusions this admission which may also be in part due to her severe non-Hodgkin's lymphoma -Outpatient we recommended right heart cath but patient declines at this time -Add Jardiance as an SGLT2 to help reduce edema and improve outcome -Continue metolazone and as needed loop diuretics CAD status post CABG -CCS = 0 -Med management heart cath 2021 -She is not interested in any further intervention -Continue statin, add ASA PAF - SR here - no AB blockers currently due to hypotension - no OAC currently due to recurrent thoracentesis Non-Hodgkin's lymphoma -Diffuse mediastinal lymphadenopathy on CT here -On broad-spectrum antibiotics, WBC normal -Right upper quadrant ultrasound-cirrhosis and nodular appearance of liver Severe hypercalcemia -16.9 on arrival -Status post calcitonin and zoledronic acid *Patient and her daughter expressed a desire for comfort care via hospice or similar.
[2024-06-09] MEDS: ASPIRIN EC 81MG TABLET 81 MG PO (15:01)
[2024-06-09] MEDS: EMPAGLIFLOZIN 10MG TABLET 10 MG PO (15:01)
[2024-06-09] MEDS: BUMETANIDE 1 MG TABLET PO (15:42)
--- NOTE | 2024-06-09 16:58 | PC.NURSE ---
PT IS RESTING IN BED. ALERT AND ORIENTED X4. PT TOLERATED SITTING UP IN THE CHAIR FOR SEVERAL HOURS THIS SHIFT. AMBULATED WITH PHYSICAL THERAPY. PT HAS BEEN ENCOURAGED TO TURN FROM SIDE TO SIDE WHILE IN BED. O2 SATURATION HAS MAINTAINED 95-100% ON RA. LUNG SOUNDS DIMINISHED WITH RIGHT SIDED CRACKLES. 1 + PITTING EDEMA NOTED TO BILATERAL ANKLES. ABDOMEN SOFT/NON TENDER WITH ACTIVE BOWEL SOUNDS. PT STATED HER LAST BOWEL MOVEMENT WAS AT 0300 THIS MORNING. WILL CONTINUE TO MONITOR.
[2024-06-09] MEDS: ATORVASTATIN 20MG TABLET 20 MG PO (21:02)
[2024-06-09] MEDS: ACETAMINOPHEN 325MG TAB 650 MG PO (21:02)
[2024-06-10] VITALS (7 sets, daily range): BP systolic 90–117; BP diastolic 49–65; PULSE 60–80; RESP 16–24; TEMP 36.4–37; O2SAT 99–100; BMI 21.9
--- NOTE | 2024-06-10 04:04 | PC.NURSE ---
79 yo female pt with admission dx of hypocalcemia and pleural effusion. Pt is A/O X 4. She is able to ambulate short distances with assistance and use of walker. Pt was treated with Tylenol for generalized pain/discomfort early in the shift which was effective. She has tolerated her meds and diet, VSS without further complaints. Pt likely discharging to [place] today for short term rehab.
[2024-06-10] MEDS: FLUTICASONE/SALMETEROL 250/50MCG DISKUS 1 PUFF IH ×2 (06:00→21:27)
[2024-06-10 06:13] LABS: Basophils % 0.2 % (0.1-2.0); Eosinophils # 0.1 K/mm3 (0.0-0.4); Eosinophils % 1.6 % (0.1-12.0); Hematocrit 29.3 % (37.0-47.0); Hemoglobin 9.6 g/dL (12.2-16.2); Lymphocytes # 0.6 K/mm3 (0.7-4.5); Lymphocytes % 13.6 % (10-50); Mean Corpuscular HGB Conc 32.7 g/dL (31.8-35.4); Mean Corpuscular Hemoglobin 29.3 pg (27.0-31.2); Mean Corpuscular Volume 89.5 fl (81-99); Mean Platelet Volume 7.9 fl (7.4-10.4); Monocytes # 0.4 K/mm3 (0.1-1.0); Monocytes % 9.7 % (1.7-9.3); Neutrophils # 3.4 K/mm3 (1.8-7.8); Neutrophils % 74.9 % (37.0-80.0); Platelet Count 171 K/mm3 (142-424); Red Blood Count 3.28 M/mm3 (4.20-5.40); Red Cell Distribution Width 17.4 % (11.5-17.5); White Blood Count 4.5 K/mm3 (4.8-10.8)
[2024-06-10 06:20] LABS: Albumin Level 2.6 g/dl (3.5-5.0); Chloride 99 mmol/L (98-107); Potassium 3.8 mmoL/L (3.5-5.1); Sodium 128 mmol/L (136-145)
[2024-06-10 06:22] LABS: Blood Urea Nitrogen 36 mg/dl (7-17); Creatinine Clearance Estimated 17 mL/min (50-200); Estimated Glomerular Filt Rate 23 ml/min (>60); GFR (African American) 28 ML/MIN (>60)
[2024-06-10 06:23] LABS: Alanine Aminotransferase 26 U/L (12-78); Albumin/Globulin Ratio 1.3 (1.1-1.8); Alkaline Phosphatase 123 U/L (38-126); Anion Gap 8.8 mEq/L (5-15); Aspartate Amino Transferase 55 U/L (14-36); Bilirubin,Total 0.4 mg/dl (0.2-1.3); Calcium 8.5 mg/dl (8.4-10.2); Carbon Dioxide 24 mmol/L (22.0-30.0); Glucose 115 mg/dl (74-100); Magnesium 1.6 mg/dl (1.6-2.3); Total Protein,Serum 4.6 g/dl (6.3-8.2)
[2024-06-10] MEDS: POTASSIUM CHLORIDE 20MEQ TAB 20 MEQ PO ×3 (08:10→20:33)
[2024-06-10] MEDS: PANTOPRAZOLE 40MG TABLET 40 MG PO (08:10)
[2024-06-10] MEDS: ASPIRIN EC 81MG TABLET 81 MG PO (08:10)
[2024-06-10] MEDS: EMPAGLIFLOZIN 10MG TABLET 10 MG PO (08:10)
[2024-06-10] MEDS: ENOXAPARIN 30MG/0.3ML SYRINGE 30 MG SQ (08:11)
[2024-06-10] MEDS: BUMETANIDE 1 MG TABLET PO ×2 (08:12→15:53)
--- NOTE | 2024-06-10 09:55 | P.PN_ITS ---
Subjective *Date: 06/10/24 *Time: 10:51 Interval history: No acute respiratory vents overnight. Patient denies any new respiratory complaints. Pulmonology Exam Inpatient Vital signs and Labs for Last 24 Hours: Temp Pulse Resp BP Pulse Ox O2 Del Method O2 Flow Rate 98.4 F 74 24 113/50 L 100 Room Air 2 06/10/24 08:00 06/10/24 08:00 06/10/24 08:00 06/10/24 08:00 06/10/24 08:00 06/10/24 08:00 06/09/24 08:00 FiO2 28 06/08/24 23:22 Laboratory Results - last 24 hr 06/10/24 05:22: WBC 4.5 L, RBC 3.28 L, Hgb 9.6 L, Hct 29.3 L, MCV 89.5, MCH 29.3, MCHC 32.7, RDW 17.4, Plt Count 171, MPV 7.9, Neut % (Auto) 74.9, Lymph % (Auto) 13.6, [place] % (Auto) 9.7 H, Eos % (Auto) 1.6, Baso % (Auto) 0.2, Neut # (Auto) 3.4, Lymph # (Auto) 0.6 L, [place] # (Auto) 0.4, Eos # (Auto) 0.1, Baso # (Auto) 0.0, Sodium 128 L, Potassium 3.8, Chloride 99, Carbon Dioxide 24, Anion Gap 8.8, BUN 36 H, Creatinine 2.10 H, Estimated Creat Clear 17, Estimated GFR 23 L, Est GFR ( Amer) 28 L, Glucose 115 H D, Calcium 8.5, Magnesium 1.6, Total Bilirubin 0.4, AST 55 H D, ALT 26 D, Alkaline Phosphatase 123, Total Protein 4.6 L, Albumin 2.6 L, Globulin 2.0, Albumin/Globulin Ratio 1.3 Temp Pulse Resp BP Pulse Ox O2 Del Method O2 Flow Rate 98.0 F 70 20 127/58 L 92 L Nasal Cannula 3 06/03/24 07:59 06/03/24 08:00 06/03/24 07:59 06/03/24 07:59 06/03/24 07:59 06/03/24 09:00 06/03/24 09:00 Laboratory Results - last 24 hr 06/03/24 03:30: Troponin I 0.04 H 06/03/24 06:15: WBC 6.1, RBC 3.27 L, Hgb 9.6 L, Hct 30.2 L, MCV 92.2, MCH 29.4, MCHC 31.9, RDW 17.2, Plt Count 131 L, MPV 9.1, Neut % (Auto) 77.9, Lymph % (Auto) 10.6, [place] % (Auto) 9.6 H, Eos % (Auto) 1.3, Baso % (Auto) 0.6, Neut # (Auto) 4.7, Lymph # (Auto) 0.6 L, [place] # (Auto) 0.6, Eos # (Auto) 0.1, Baso # (Auto) 0.0, PT 12.8 H, INR 1.16 H, Sodium 131 L, Potassium 4.0, Chloride 98, Carbon Dioxide 29, Anion Gap 8.0, BUN 42 H, Creatinine 1.80 H, Estimated Creat Clear 20, Estimated GFR 27 L, Est GFR ( Amer) 33 L, Glucose 119 H, Calcium 14.2 H*, Magnesium 2.1, Total Bilirubin 0.6, AST 40 H, ALT 18, Alkaline Phosphatase 103, Troponin I 0.04 H, Total Protein 5.1 L, Albumin 3.1 L, Globulin 2.0, Albumin/Globulin Ratio 1.6 I & O for Labs for Last 24 Hours: Intake & Output 06/07/24 06/08/24 06/09/24 06/10/24 23:59 23:59 23:59 23:59 Intake Total 360 / 360 980 / 980 460 / 700 240 / 240 Output Total 1400 / 1400 870 / 870 1350 / 1350 700 / 700 Balance -1040 / -1040 110 / 110 -890 / -650 -460 / -460 Weight 113 lb 12.807 oz 110 lb 9.6 oz 110 lb 9.589 oz 108 lb 9.6 oz Intake & Output 05/31/24 06/01/24 06/02/24 06/03/24 23:59 23:59 23:59 23:59 Intake Total 230 / 230 Output Total 0 / 0 Balance 230 / 230 Weight 106 lb 15.986 oz Microbiology Reports for the Last 24 Hours: Microbiology 06/08/24 17:57 Pleural Fluid Gram Stain - Final 06/08/24 17:57 Pleural Fluid Body Fluid Culture - Preliminary NO GROWTH AFTER 24 HOURS 06/05/24 15:15 Blood Blood Culture - Preliminary NO GROWTH AFTER 4 DAYS 06/05/24 15:15 Blood Blood Culture - Preliminary NO GROWTH AFTER 4 DAYS 06/03/24 12:20 Pleural Fluid Gram Stain - Final 06/03/24 12:20 Pleural Fluid Body Fluid Culture - Final NO GROWTH AFTER 5 DAYS Constitutional: Present severe distress Head: Present normocephalic and atraumatic ENT: Present normal exam, normal oropharynx and mucous membranes moist Neck: Present normal inspection and full ROM Respiratory: Present able to speak in complete sentences; Absent respiratory distress, wheezes or crackles Cardiac: Present S1/S2, Tachycardia and radial pulses present GI: Present soft and distention; Absent tenderness or guarding Rectal (female): Present deferred (female): Present deferred Skin: Present intact; Absent cyanosis or jaundice Neuro: Present alert, awake and oriented x 3 Extremities: Present normal inspection; Absent clubbing or cyanosis Psychiatric: Present normal affect and cooperative Assessment and Plan *Assessment and plan (1) Recurrent right pleural effusion: Status: Acute Category: Medical Code(s): J90 - Pleural effusion, not elsewhere classified (2) Pulmonary nodules/lesions, multiple: Status: Acute Category: Medical Code(s): R91.8 - Other nonspecific abnormal finding of lung field (3) Pleural effusion on right: Status: Acute Category: Medical Code(s): J90 - Pleural effusion, not elsewhere classified Plan Ms. Portillo is a 79-year-old female never smoker prior history of multiple pulmonary nodules mediastinal hilar lymphadenopathy calcified, chronic hypoxic respiratory failure questionable rheumatoid arthritis severe pulmonary hypertension based on echocardiogram with RVSP of 78 recently seen in pulmonary clinic for exertional dyspnea due to follow-up with lab work and pulmonary testing admitted to the hospital complaining of worsening shortness of breath and pulmonary was called for further evaluation and management. Patient presented to outside hospital during which she was noted to have worsening right pleural effusion hypercalcemia and worsening renal function and was requested to be transferred to [facility]. Chest x-ray on admission showed large right pleural effusion. Afebrile. Hemodynamically stable. No evidence of leukocytosis. BELEM and severe hypercalcemia. Status post thoracentesis on 06/04/2024, removed 1720 cc. Pleural fluid cell count differential mononuclear predominant. Exudative effusion. Cytology negative for malignant cells. Fluid cultures no growth so far. Vitamin D 1-25 high normal at 65. Previously on vitamin D 25 supplementations. AASHISH levels within normal limits at less than 15. Ultrasound abdomen coarse echotexture concerning for cirrhosis. Echo normal EF with septal flattening and increased right-sided pressures. RV severely hypokinetic with estimated RVSP at 60. Benefit from RHC and Right pressure evaluation, cardiology following. No need for pleural Pleurx catheter at this point of time given the possible etiology is still under evaluation unless for hospice measures. Will follow repeat pleural fluid studies. Interval update: Plan: -Follow-up with initial tap pleural fluid triglycerides levels. -F/U repeat pleural studies -DuoNebs every 6 hours on as-needed basis -On room air saturating 100% today. Organ supplementation as needed to maintain O2 saturation goal of 90 to 90% if noted to have desaturations. Will follow the patient as an outpatient basis for the other concerning pulmonary fibrosis/interstitial lung disease and likely reactive lymphadenopathy # Thank you for involving pulmonary in this patient care. Will continue to follow.
--- NOTE | 2024-06-10 14:51 | P.PN_ITS ---
Subjective Subjective Date: 06/10/24 Time: 10:00 Interval history: No events overnight. O2 is 100% on room air. Occasionally in A-fib but is asymptomatic and rate controlled. Daughter is bedside, they have no specific questions today. She is awaiting placement. Exam Data for Last 24 hours Vital signs and Labs for Last 24 Hours: Temp Pulse Resp BP Pulse Ox O2 Del Method O2 Flow Rate 98.1 F 80 24 100/49 L 100 Room Air 2 06/10/24 12:00 06/10/24 12:00 06/10/24 12:00 06/10/24 12:00 06/10/24 12:00 06/10/24 13:00 06/09/24 08:00 FiO2 28 06/08/24 23:22 Laboratory Results - last 24 hr 06/10/24 05:22: WBC 4.5 L, RBC 3.28 L, Hgb 9.6 L, Hct 29.3 L, MCV 89.5, MCH 29.3, MCHC 32.7, RDW 17.4, Plt Count 171, MPV 7.9, Neut % (Auto) 74.9, Lymph % (Auto) 13.6, [place] % (Auto) 9.7 H, Eos % (Auto) 1.6, Baso % (Auto) 0.2, Neut # (Auto) 3.4, Lymph # (Auto) 0.6 L, [place] # (Auto) 0.4, Eos # (Auto) 0.1, Baso # (Auto) 0.0, Sodium 128 L, Potassium 3.8, Chloride 99, Carbon Dioxide 24, Anion Gap 8.8, BUN 36 H, Creatinine 2.10 H, Estimated Creat Clear 17, Estimated GFR 23 L, Est GFR ( Amer) 28 L, Glucose 115 H D, Calcium 8.5, Magnesium 1.6, Total Bilirubin 0.4, AST 55 H D, ALT 26 D, Alkaline Phosphatase 123, Total Protein 4.6 L, Albumin 2.6 L, Globulin 2.0, Albumin/Globulin Ratio 1.3 I & O for Last 24 hours: Intake & Output 06/07/24 06/08/24 06/09/24 06/10/24 23:59 23:59 23:59 23:59 Intake Total 360 / 360 980 / 980 460 / 700 980 / 980 Output Total 1400 / 1400 870 / 870 1350 / 1350 700 / 700 Balance -1040 / -1040 110 / 110 -890 / -650 280 / 280 Weight 113 lb 12.807 oz 110 lb 9.6 oz 110 lb 9.589 oz 108 lb 9.6 oz Microbiology Reports for the Last 24 Hours: Microbiology 06/08/24 17:57 Pleural Fluid Gram Stain - Final 06/08/24 17:57 Pleural Fluid Body Fluid Culture - Preliminary NO GROWTH AFTER 24 HOURS 06/05/24 15:15 Blood Blood Culture - Preliminary NO GROWTH AFTER 4 DAYS 06/05/24 15:15 Blood Blood Culture - Preliminary NO GROWTH AFTER 4 DAYS 06/03/24 12:20 Pleural Fluid Gram Stain - Final 06/03/24 12:20 Pleural Fluid Body Fluid Culture - Final NO GROWTH AFTER 5 DAYS Constitutional Constitutional: no acute distress, thin and cooperative *Routine HEENT Exam Eye: Present PERRL *Routine Respiratory Exam Respiratory: Present CTA bilaterally; Absent accessory muscle use, wheezes or crackles *Routine Cardiovascular Exam Cardiovascular: Present RRR, Normal S1, Normal S2 and irregularly irregular; Absent murmur, gallop or rubs *Routine Abdominal Exam Abdominal: Present soft; Absent tenderness *Routine Extremities Exam Extremities: Present pulses intact; Absent cyanosis or edema *Routine Skin Exam Skin: Present intact; Absent erythema or wounds *Routine Neurological Exam Neurological: Present alert and oriented X3 Routine Psychiatric Exam Psychiatric: Present cooperative Progress Note: A&P Assessment and plan (1) Acute on chronic heart failure with preserved ejection fraction (HFpEF): Status: Acute (2) Recurrent right pleural effusion: Status: Acute (3) Pulmonary nodules/lesions, multiple: Status: Acute (4) Pleural effusion on right: Status: Acute (5) Non-Hodgkin lymphoma: Status: Acute (6) CAD (coronary artery disease): Status: Chronic Assessment and Plan Assessment and Plan for All Diagnoses:: Recurrent Large Right Pleural Effusion s/p thoracentesis - 06/03 - 1699 - 06/05 -1599 -Likely multifactorial due to HFpEF, non-Hodgkin's lymphoma, COPD - consider pleur-x - continue diuretics - add Jardiance HFpEF, acute on chronic -Known diagnosis since 2021 with severe RV dilation, severely elevated RVSP, severe biatrial dilation, severe TR, mild , normal EF -Recurrent large pericardial effusions this admission which may also be in part due to her severe non-Hodgkin's lymphoma -Outpatient we recommended right heart cath but patient declines at this time -Add Jardiance as an SGLT2 to help reduce edema and improve outcome -Continue metolazone and as needed loop diuretics CAD status post CABG -CCS = 0 -Med management heart cath 2021 -She is not interested in any further intervention -Continue statin, add ASA PAF - SR here - no AB blockers currently due to hypotension - no OAC currently due to recurrent thoracentesis, resume home dose of xarelto at discharge Non-Hodgkin's lymphoma -Diffuse mediastinal lymphadenopathy on CT here -On broad-spectrum antibiotics, WBC normal -Right upper quadrant ultrasound-cirrhosis and nodular appearance of liver Severe hypercalcemia -16.9 on arrival -Status post calcitonin and zoledronic acid CV stable, will sign off. Please advise if we can be of further assistance prior to discharge. Thank you.
--- NOTE | 2024-06-10 16:36 | PC.NURSE ---
PT IS SITTING UP IN THE CHAIR VISITING WITH FAMILY. ALERT AND ORIENTED X4. NO COMPLAINTS OF SOA. O2 SATURATION HAS MAINTAINED 95-99% ON RA. LUNG SOUNDS DIMINISHED WITH RIGHT SIDED CRACKLES. ABDOMEN SOFT/NON TENDER WITH ACTIVE BOWEL SOUNDS. EATING AND DRINKING FAIR. 1-2 + EDEMA NOTED TO BLE. REDNESS NOTED TO BUTTOCKS. ENCOURAGED TO REPOSITION WHILE IN BED. WILL CONTINUE TO MONITOR.
--- NOTE | 2024-06-10 19:04 | P.PN_ITS ---
Subjective *Date: 06/10/24 *Time: 19:04 Interval history: seen at bedside, sitting in chair, daughter at bedside Exam Data for Last 24 hours Vital signs and Labs for Last 24 Hours: Temp Pulse Resp BP Pulse Ox O2 Del Method O2 Flow Rate 97.6 F 69 24 90/64 L 100 Room Air 2 06/10/24 16:00 06/10/24 16:00 06/10/24 16:00 06/10/24 16:00 06/10/24 16:00 06/10/24 18:34 06/09/24 08:00 FiO2 28 06/08/24 23:22 Laboratory Results - last 24 hr 06/10/24 05:22: WBC 4.5 L, RBC 3.28 L, Hgb 9.6 L, Hct 29.3 L, MCV 89.5, MCH 29.3, MCHC 32.7, RDW 17.4, Plt Count 171, MPV 7.9, Neut % (Auto) 74.9, Lymph % (Auto) 13.6, [place] % (Auto) 9.7 H, Eos % (Auto) 1.6, Baso % (Auto) 0.2, Neut # (Auto) 3.4, Lymph # (Auto) 0.6 L, [place] # (Auto) 0.4, Eos # (Auto) 0.1, Baso # (Auto) 0.0, Sodium 128 L, Potassium 3.8, Chloride 99, Carbon Dioxide 24, Anion Gap 8.8, BUN 36 H, Creatinine 2.10 H, Estimated Creat Clear 17, Estimated GFR 23 L, Est GFR ( Amer) 28 L, Glucose 115 H D, Calcium 8.5, Magnesium 1.6, Total Bilirubin 0.4, AST 55 H D, ALT 26 D, Alkaline Phosphatase 123, Total Protein 4.6 L, Albumin 2.6 L, Globulin 2.0, Albumin/Globulin Ratio 1.3 I & O for Last 24 hours: Intake & Output 06/07/24 06/08/24 06/09/24 06/10/24 23:59 23:59 23:59 23:59 Intake Total 360 / 360 980 / 980 460 / 700 1250 / 1250 Output Total 1400 / 1400 870 / 870 1350 / 1350 700 / 700 Balance -1040 / -1040 110 / 110 -890 / -650 550 / 550 Weight 51.619 kg 50.167 kg 50.167 kg 49.26 kg Microbiology Reports for the Last 24 Hours: Microbiology 06/08/24 17:57 Pleural Fluid Gram Stain - Final 06/08/24 17:57 Pleural Fluid Body Fluid Culture - Preliminary NO GROWTH AFTER 48 HOURS 06/05/24 15:15 Blood Blood Culture - Final NO GROWTH AFTER 5 DAYS 06/05/24 15:15 Blood Blood Culture - Final NO GROWTH AFTER 5 DAYS Constitutional Constitutional: no acute distress *Routine HEENT Exam Head: Present normocephalic Eye: Present EOMI and PERRL ENT: Present mucous membranes moist *Routine Neck Exam Neck: Present supple; Absent lymphadenopathy *Routine Respiratory Exam Respiratory: Present CTA bilaterally *Routine Cardiovascular Exam Cardiovascular: Present RRR *Routine Abdominal Exam Abdominal: Present soft and normoactive bowel sounds; Absent tenderness *Routine Extremities Exam Extremities: Absent cyanosis, clubbing or edema *Routine Skin Exam Skin: Present warm; Absent rash *Routine Neurological Exam Neurological: Present alert and oriented X3 Assessment and Plan *Assessment and plan (1) Serum calcium elevated: Status: Acute Category: Medical Code(s): E83.52 - Hypercalcemia (2) Recurrent right pleural effusion: Status: Acute Category: Medical Code(s): J90 - Pleural effusion, not elsewhere classified (3) Diastolic CHF: Status: Acute Qualifiers: Heart failure chronicity: chronic Qualified Code(s): I50.32 - Chronic diastolic (congestive) heart failure Category: Medical Code(s): I50.30 - Unspecified diastolic (congestive) heart failure (4) SOB (shortness of breath): Status: Acute Category: Medical Code(s): R06.02 - Shortness of breath (5) Acute kidney injury superimposed on CKD: Status: Acute Category: Medical Code(s): N17.9 - Acute kidney failure, unspecified; N18.9 - Chronic kidney disease, unspecified (6) Mediastinal lymphadenopathy: Status: Acute Category: Medical Code(s): R59.0 - Localized enlarged lymph nodes (7) Pulmonary nodules/lesions, multiple: Status: Acute Category: Medical Code(s): R91.8 - Other nonspecific abnormal finding of lung field (8) Non-Hodgkin lymphoma: Status: Acute Category: Medical Code(s): C85.90 - Non-Hodgkin lymphoma, unspecified, unspecified site (9) HTN (hypertension): Status: Chronic Qualifiers: Hypertension type: essential hypertension Qualified Code(s): I10 - Essential (primary) hypertension Category: Medical Code(s): I10 - Essential (primary) hypertension (10) HLD (hyperlipidemia): Status: Chronic Qualifiers: Hyperlipidemia type: mixed hyperlipidemia Qualified Code(s): E78.2 - Mixed hyperlipidemia Category: Medical Code(s): E78.5 - Hyperlipidemia, unspecified (11) Lymphoma: Status: Chronic Qualifiers: Lymphoma type: unspecified type Lymphoma site: unspecified region Qualified Code(s): C85.90 - Non-Hodgkin lymphoma, unspecified, unspecified site Category: Medical Code(s): C85.90 - Non-Hodgkin lymphoma, unspecified, unspecified site (12) Severe protein-calorie malnutrition: Status: Acute Category: Medical Code(s): E43 - Unspecified severe protein-calorie malnutrition Plan 78 years old female with PMHx non-Hodgkin lymphoma, pulmonary hypertension, d iastolic CHF, A-fib on chronic anticoagulation, hypertension hyperlipidemia CAD right pleural effusion, presented to [facility] ER complaining for shortness of breath. While was in the ER lab was significant for hypercalcemia 16.9, creatinine of 1.9, hemoglobin 10. 5. CT of the chest was obtained, concerning for a large right pleural effusion with worsening. Numerous small nodules present in the right thigh the upper right nodule are smaller than prior atelectasis in the right middle lobe extensive lymphadenopathy within the mediastinum. This finding were discussed with the referring provider. Patient transferred to our institution for further management. Has undergone thoracentesis twice. Once on 06/03 with drainage of 1700 cc of fluid. Repeat drainage on 06/05 with 1600 cc off. 700 cc removed 06/08. On room air today. Chest x-ray personally reviewed today showing improvement. Completed 5 days of antibiotics. Clinically appears stable or discharge when accepted for rehab. Cotinues to require inpatient management. Goals of care discussion daily. Problems addressed as follows. Acute hypoxemic respiratory failure secondary to recurrent right pleural effusion: improved Pulmonary nodules Mediastinal lymphadenopathy History of non-Hodgkin follicular lymphoma - Continue DuoNebs every 6 hours as needed. Continue supplemental oxygen as needed for O2 sats greater than 90%. -Right upper quadrant ultrasound showing cirrhosis/nodular appearance of liver. -Fluid studies not consistent with chylothorax. -Awaiting repeat cell count, cytology, Gram stain. BELEM on CKD. Prerenal likely due to excessive diuresis - improved Hypercalcemia secondary to malignancy versus hemoconcentration - Status post calcitonin x 1, zoledronic acid x 1. 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 Congestive heart failure could account for fluid collection, turbidity of fluid however concerning for chronic effusion versus secondary to her lymphoma versus infection. hyperlipidemia, gout Patient on allopurinol and atorvastatin, resume pending improvement kidney function On Protonix for GERD. Cardiac diet. Small frequent portions. High-calorie diet Full code stable for discharge pending insurance approval
[2024-06-10] MEDS: ATORVASTATIN 20MG TABLET 20 MG PO (20:33)
[2024-06-11] VITALS (7 sets, daily range): BP systolic 100–128; BP diastolic 49–79; PULSE 63–76; RESP 16–21; TEMP 36.6–37.4; O2SAT 98–100; BMI 22.3
--- NOTE | 2024-06-11 01:07 | PC.NURSE ---
RECEIVED VERBAL REPORT FROM Reji BECKHAM RN.
[2024-06-11 06:18] LABS: Albumin Level 2.6 g/dl (3.5-5.0); Chloride 103 mmol/L (98-107); Potassium 4.4 mmoL/L (3.5-5.1); Sodium 131 mmol/L (136-145)
[2024-06-11 06:21] LABS: Alanine Aminotransferase 29 U/L (12-78); Albumin/Globulin Ratio 1.2 (1.1-1.8); Alkaline Phosphatase 140 U/L (38-126); Anion Gap 8.4 mEq/L (5-15); Aspartate Amino Transferase 65 U/L (14-36); Bilirubin,Total 0.4 mg/dl (0.2-1.3); Blood Urea Nitrogen 38 mg/dl (7-17); Calcium 8.5 mg/dl (8.4-10.2); Carbon Dioxide 24 mmol/L (22.0-30.0); Creatinine Clearance Estimated 16 mL/min (50-200); Estimated Glomerular Filt Rate 21 ml/min (>60); GFR (African American) 25 ML/MIN (>60); Globulin 2.1 g/dL (1.3-3.2); Glucose 83 mg/dl (74-100); Total Protein,Serum 4.7 g/dl (6.3-8.2)
[2024-06-11] MEDS: FLUTICASONE/SALMETEROL 250/50MCG DISKUS 1 PUFF IH ×2 (06:34→21:02)
[2024-06-11] MEDS: EMPAGLIFLOZIN 10MG TABLET 10 MG PO (08:30)
[2024-06-11] MEDS: BUMETANIDE 1 MG TABLET PO (08:31)
[2024-06-11] MEDS: PANTOPRAZOLE 40MG TABLET 40 MG PO (08:31)
[2024-06-11] MEDS: ASPIRIN EC 81MG TABLET 81 MG PO (08:31)
[2024-06-11] MEDS: POTASSIUM CHLORIDE 20MEQ TAB 20 MEQ PO (08:32)
[2024-06-11] MEDS: ENOXAPARIN 30MG/0.3ML SYRINGE 30 MG SQ (08:42)
[2024-06-11] MEDS: NYSTATIN SUSP 500,000 UNITS/5ML UDC 500000 UNIT PO ×3 (14:05→20:06)
--- NOTE | 2024-06-11 17:47 | PC.NURSE ---
PT HAS BEEN UP TO CHAIR FOR MOST OF SHIFT WITH FAMILY IN THE ROOM. SHE IS AOX4, ABLE TO MAKE NEEDS KNOWN TO STAFF, TOLERATING ROOM AIR. PILLS WHOLE BUT CRUSH POTASSIUM TABLETS. EDEMA NOTED TO BLE.
--- NOTE | 2024-06-11 17:58 | P.PN_ITS ---
Subjective *Date: 06/11/24 *Time: 17:58 Interval history: seen at bedside, sitting in chair, no acute events overnight Exam Data for Last 24 hours Vital signs and Labs for Last 24 Hours: Temp Pulse Resp BP Pulse Ox O2 Del Method O2 Flow Rate 99.1 F 67 19 110/55 L 100 Room Air 2 06/11/24 16:00 06/11/24 16:00 06/11/24 16:00 06/11/24 16:00 06/11/24 16:00 06/11/24 16:00 06/09/24 08:00 FiO2 28 06/08/24 23:22 Laboratory Results - last 24 hr 06/11/24 05:25: Sodium 131 L, Potassium 4.4, Chloride 103, Carbon Dioxide 24, Anion Gap 8.4, BUN 38 H, Creatinine 2.30 H, Estimated Creat Clear 16, Estimated GFR 21 L, Est GFR ( Amer) 25 L, Glucose 83, Calcium 8.5, Total Bilirubin 0.4, AST 65 H, ALT 29, Alkaline Phosphatase 140 H, Total Protein 4.7 L, Albumin 2.6 L, Globulin 2.1, Albumin/Globulin Ratio 1.2 I & O for Last 24 hours: Intake & Output 06/08/24 06/09/24 06/10/24 06/11/24 23:59 23:59 23:59 23:59 Intake Total 980 / 980 460 / 700 1250 / 1370 810 / 810 Output Total 870 / 870 1350 / 1350 700 / 700 300 / 300 Balance 110 / 110 -890 / -650 550 / 670 510 / 510 Weight 50.167 kg 50.167 kg 49.26 kg 50.167 kg Microbiology Reports for the Last 24 Hours: Microbiology 06/08/24 17:57 Pleural Fluid Gram Stain - Final 06/08/24 17:57 Pleural Fluid Body Fluid Culture - Preliminary NO GROWTH AFTER 48 HOURS 06/05/24 15:15 Blood Blood Culture - Final NO GROWTH AFTER 5 DAYS 06/05/24 15:15 Blood Blood Culture - Final NO GROWTH AFTER 5 DAYS Constitutional Constitutional: no acute distress *Routine HEENT Exam Head: Present normocephalic Eye: Present EOMI and PERRL ENT: Present mucous membranes moist *Routine Neck Exam Neck: Present supple; Absent lymphadenopathy *Routine Respiratory Exam Respiratory: Present CTA bilaterally *Routine Cardiovascular Exam Cardiovascular: Present RRR *Routine Abdominal Exam Abdominal: Present soft and normoactive bowel sounds; Absent tenderness *Routine Extremities Exam Extremities: Absent cyanosis, clubbing or edema *Routine Skin Exam Skin: Present warm; Absent rash *Routine Neurological Exam Neurological: Present alert and oriented X3 Assessment and Plan *Assessment and plan (1) Serum calcium elevated: Status: Acute Category: Medical Code(s): E83.52 - Hypercalcemia (2) Recurrent right pleural effusion: Status: Acute Category: Medical Code(s): J90 - Pleural effusion, not elsewhere classified (3) Diastolic CHF: Status: Acute Qualifiers: Heart failure chronicity: chronic Qualified Code(s): I50.32 - Chronic diastolic (congestive) heart failure Category: Medical Code(s): I50.30 - Unspecified diastolic (congestive) heart failure (4) SOB (shortness of breath): Status: Acute Category: Medical Code(s): R06.02 - Shortness of breath (5) Acute kidney injury superimposed on CKD: Status: Acute Category: Medical Code(s): N17.9 - Acute kidney failure, unspecified; N18.9 - Chronic kidney disease, unspecified (6) Mediastinal lymphadenopathy: Status: Acute Category: Medical Code(s): R59.0 - Localized enlarged lymph nodes (7) Pulmonary nodules/lesions, multiple: Status: Acute Category: Medical Code(s): R91.8 - Other nonspecific abnormal finding of lung field (8) Non-Hodgkin lymphoma: Status: Acute Category: Medical Code(s): C85.90 - Non-Hodgkin lymphoma, unspecified, unspecified site (9) HTN (hypertension): Status: Chronic Qualifiers: Hypertension type: essential hypertension Qualified Code(s): I10 - Essential (primary) hypertension Category: Medical Code(s): I10 - Essential (primary) hypertension (10) HLD (hyperlipidemia): Status: Chronic Qualifiers: Hyperlipidemia type: mixed hyperlipidemia Qualified Code(s): E78.2 - Mixed hyperlipidemia Category: Medical Code(s): E78.5 - Hyperlipidemia, unspecified (11) Lymphoma: Status: Chronic Qualifiers: Lymphoma type: unspecified type Lymphoma site: unspecified region Qualified Code(s): C85.90 - Non-Hodgkin lymphoma, unspecified, unspecified site Category: Medical Code(s): C85.90 - Non-Hodgkin lymphoma, unspecified, unspecified site (12) Severe protein-calorie malnutrition: Status: Acute Category: Medical Code(s): E43 - Unspecified severe protein-calorie malnutrition Plan 78 years old female with PMHx non-Hodgkin lymphoma, pulmonary hypertension, diastolic CHF, A-fib on chronic anticoagulation, hypertension hyperlipidemia CAD right pleural effusion, presented to [facility] ER complaining for shortness of breath. While was in the ER lab was significant for hypercalcemia 16.9, creatinine of 1.9, hemoglobin 10. 5. CT of the chest was obtained, concerning for a large right pleural effusion with worsening. Numerous small nodules present in the right thigh the upper right nodule are smaller than prior atelectasis in the right middle lobe extensive lymphadenopathy within the mediastinum. This finding were discussed with the referring provider. Patient transferred to our institution for further management. Has undergone thoracentesis twice. Once on 06/03 with drainage of 1700 cc of fluid. Repeat drainage on 06/05 with 1600 cc off. 700 cc removed 06/08. On room air today. Chest x-ray personally reviewed today showing improvement. Completed 5 days of antibiotics. Clinically appears stable or discharge when accepted for rehab. Cotinues to require inpatient management. Goals of care discussion daily. Prob lems addressed as follows. Acute hypoxemic respiratory failure secondary to recurrent right pleural effusion: improved Pulmonary nodules Mediastinal lymphadenopathy History of non-Hodgkin follicular lymphoma Continue DuoNebs every 6 hours as needed. Continue supplemental oxygen as needed for O2 sats greater than 90%. -Right upper quadrant ultrasound showing cirrhosis/nodular appearance of liver. -Fluid studies not consistent with chylothorax. -Awaiting repeat cell count, cytology, Gram stain. BELEM on CKD. 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 Congestive heart failure could account for fluid collection, turbidity of fluid however concerning for chronic effusion versus secondary to her lymphoma versus infection. hyperlipidemia, gout Patient on allopurinol and atorvastatin, resume pending improvement kidney function On Protonix for GERD. Cardiac diet. Small frequent portions. High-calorie diet Full code await improvement in Cr, monitor BMP
[2024-06-11] MEDS: ATORVASTATIN 20MG TABLET 20 MG PO (20:06)
[2024-06-11] MEDS: FAMOTIDINE 20MG TABLET 20 MG PO (21:06)
[2024-06-12] VITALS (7 sets, daily range): BP systolic 100–130; BP diastolic 50–65; PULSE 60–70; RESP 12–24; TEMP 36.6–37; O2SAT 100; BMI 21.7
--- NOTE | 2024-06-12 05:18 | PC.NURSE ---
Patient alert and oriented x4 throughout shift. Tolerating room air well. 2+ BLE edema noted. Crackles noted in right lung. Abdomen soft, non-tender and active x4 quadrants. Patient has not rested much this shift, states that is her baseline at home. Patient had some complaints of acid reflux/abdominal discomfort earlier in the shift, treated per JAN. Otherwise, no complaints. Bed alarm active for patient safety. Call light within reach.
[2024-06-12] MEDS: FLUTICASONE/SALMETEROL 250/50MCG DISKUS 1 PUFF IH ×2 (06:19→20:57)
[2024-06-12 07:32] LABS: Alanine Aminotransferase 32 U/L (12-78); Albumin Level 2.7 g/dl (3.5-5.0); Albumin/Globulin Ratio 1.1 (1.1-1.8); Alkaline Phosphatase 147 U/L (38-126); Anion Gap 9.3 mEq/L (5-15); Aspartate Amino Transferase 71 U/L (14-36); Bilirubin,Total 0.4 mg/dl (0.2-1.3); Blood Urea Nitrogen 39 mg/dl (7-17); Calcium 8.6 mg/dl (8.4-10.2); Carbon Dioxide 23 mmol/L (22.0-30.0); Chloride 102 mmol/L (98-107); Creatinine Clearance Estimated 16 mL/min (50-200); Estimated Glomerular Filt Rate 21 ml/min (>60); GFR (African American) 25 ML/MIN (>60); Globulin 2.4 g/dL (1.3-3.2); Glucose 87 mg/dl (74-100); Potassium 4.3 mmoL/L (3.5-5.1); Sodium 130 mmol/L (136-145); Total Protein,Serum 5.1 g/dl (6.3-8.2)
[2024-06-12] MEDS: PANTOPRAZOLE 40MG TABLET 40 MG PO (08:05)
[2024-06-12] MEDS: ASPIRIN EC 81MG TABLET 81 MG PO (08:05)
[2024-06-12] MEDS: EMPAGLIFLOZIN 10MG TABLET 10 MG PO (08:05)
[2024-06-12] MEDS: NYSTATIN SUSP 500,000 UNITS/5ML UDC 500000 UNIT PO ×4 (08:05→20:34)
--- NOTE | 2024-06-12 11:23 | XR_ITS ---
PROCEDURE INFORMATION: Exam: XR Chest Exam date and time: 06/12/2024 11:33 AM Age: 79 years old Clinical indication: Shortness of breath; Additional info: SOB TECHNIQUE: Imaging protocol: Radiologic exam of the chest. Views: 1 view. COMPARISON: CR XR CHEST PORTABLE 06/09/2024 9:59 AM FINDINGS: Lungs: Opacity in the right midlung and right base may represent atelectasis or pneumonia.. Pleural spaces: Moderate right pleural effusion.. Heart/Mediastinum: Unremarkable. No cardiomegaly. Bones/joints: Unremarkable. IMPRESSION: 1. Moderate right pleural effusion.. 2. Opacity in the right midlung and right base may represent atelectasis or pneumonia..
[2024-06-12] MEDS: ACETAMINOPHEN 325MG TAB 650 MG PO ×2 (13:10→23:03)
--- NOTE | 2024-06-12 16:50 | EXP.PN ---
Subjective *Date: 06/12/24 *Time: 16:50 Interval history: seen at bedside, sitting in chair, no acute events overnight Exam Data for Last 24 hours Vital signs and Labs for Last 24 Hours: Temp Pulse Resp BP Pulse Ox O2 Del Method O2 Flow Rate 97.8 F 66 19 101/52 L 100 Room Air 2 06/12/24 16:00 06/12/24 16:00 06/12/24 16:00 06/12/24 16:00 06/12/24 16:00 06/12/24 16:00 06/09/24 08:00 FiO2 28 06/08/24 23:22 Laboratory Results - last 24 hr 06/12/24 06:30: Sodium 130 L, Potassium 4.3, Chloride 102, Carbon Dioxide 23, Anion Gap 9.3, BUN 39 H, Creatinine 2.30 H, Estimated Creat Clear 16, Estimated GFR 21 L, Est GFR ( Amer) 25 L, Glucose 87, Calcium 8.6, Total Bilirubin 0.4, AST 71 H, ALT 32, Alkaline Phosphatase 147 H, Total Protein 5.1 L, Albumin 2.7 L, Globulin 2.4, Albumin/Globulin Ratio 1.1 I & O for Last 24 hours: Intake & Output 06/09/24 06/10/24 06/11/24 06/12/24 23:59 23:59 23:59 23:59 Intake Total 460 / 700 1250 / 1370 1170 / 1170 720 / 720 Output Total 1350 / 1350 700 / 700 1000 / 1000 950 / 950 Balance -890 / -650 550 / 670 170 / 170 -230 / -230 Weight 50.167 kg 49.26 kg 50.167 kg 48.761 kg Microbiology Reports for the Last 24 Hours: Microbiology 06/08/24 17:57 Pleural Fluid Gram Stain - Final 06/08/24 17:57 Pleural Fluid Body Fluid Culture - Preliminary NO GROWTH AFTER 72 HOURS Constitutional Constitutional: no acute distress *Routine HEENT Exam Head: Present normocephalic Eye: Present EOMI and PERRL ENT: Present mucous membranes moist *Routine Neck Exam Neck: Present supple; Absent lymphadenopathy *Routine Respiratory Exam Respiratory: Present CTA bilaterally *Routine Cardiovascular Exam Cardiovascular: Present RRR *Routine Abdominal Exam Abdominal: Present soft and normoactive bowel sounds; Absent tenderness *Routine Extremities Exam Extremities: Absent cyanosis, clubbing or edema *Routine Skin Exam Skin: Present warm; Absent rash *Routine Neurological Exam Neurological: Present alert and oriented X3 Assessment and Plan *Assessment and plan (1) Serum calcium elevated: Status: Acute Category: Medical Code(s): E83.52 - Hypercalcemia (2) Recurrent right pleural effusion: Status: Acute Category: Medical Code(s): J90 - Pleural effusion, not elsewhere classified (3) Diastolic CHF: Status: Acute Qualifiers: Heart failure chronicity: chronic Qualified Code(s): I50.32 - Chronic diastolic (congestive) heart failure Category: Medical Code(s): I50.30 - Unspecified diastolic (congestive) heart failure (4) SOB (shortness of breath): Status: Acute Category: Medical Code(s): R06.02 - Shortness of breath (5) Acute kidney injury superimposed on CKD: Status: Acute Category: Medical Code(s): N17.9 - Acute kidney failure, unspecified; N18.9 - Chronic kidney disease, unspecified (6) Mediastinal lymphadenopathy: Status: Acute Category: Medical Code(s): R59.0 - Localized enlarged lymph nodes (7) Pulmonary nodules/lesions, multiple: Status: Acute Category: Medical Code(s): R91.8 - Other nonspecific abnormal finding of lung field (8) Non-Hodgkin lymphoma: Status: Acute Category: Medical Code(s): C85.90 - Non-Hodgkin lymphoma, unspecified, unspecified site (9) HTN (hypertension): Status: Chronic Qualifiers: Hypertension type: essential hypertension Qualified Code(s): I10 - Essential (primary) hypertension Category: Medical Code(s): I10 - Essential (primary) hypertension (10) HLD (hyperlipidemia): Status: Chronic Qualifiers: Hyperlipidemia type: mixed hyperlipidemia Qualified Code(s): E78.2 - Mixed hyperlipidemia Category: Medical Code(s): E78.5 - Hyperlipidemia, unspecified (11) Lymphoma: Status: Chronic Qualifiers: Lymphoma type: unspecified type Lymphoma site: unspecified region Qualified Code(s): C85.90 - Non-Hodgkin lymphoma, unspecified, unspecified site Category: Medical Code(s): C85.90 - Non-Hodgkin lymphoma, unspecified, unspecified site (12) Severe protein-calorie malnutrition: Status: Acute Category: Medical Code(s): E43 - Unspecified severe protein-calorie malnutrition Plan 78 years old female with PMHx non-Hodgkin lymphoma, pulmonary hypertension, diastolic CHF, A-fib on chronic anticoagulation, hypertension hyperlipidemia CAD right pleural effusion, presented to [facility] ER complaining for shortness of breath. While was in the ER lab was significant for hypercalcemia 16.9, creatinine of 1.9, hemoglobin 10. 5. CT of the chest was obtained, concerning for a large right pleural effusion with worsening. Numerous small nodules present in the right thigh the upper right nodule are smaller than prior atelectasis in the right middle lobe extensive lymphadenopathy within the mediastinum. This finding were discussed with the referring provider. Patient transferred to our institution for further management. Has undergone thoracentesis twice. Once on 06/03 with drainage of 1700 cc of fluid. Repeat drainage on 06/05 with 1600 cc off. 700 cc removed 06/08. On room air today. Chest x-ray personally reviewed today showing improvement. Completed 5 days of antibiotics. Clinically appears stable or discharge when accepted for rehab. Cotinues to require inpatient management. Goals of care discussion daily. Problems addressed as follows. Acute hypoxemic respiratory failure secondary to recurrent right pleural effusion: improved Pulmonary nodules Mediastinal lymphadenopathy History of non-Hodgkin follicular lymphoma Continue DuoNebs every 6 hours as needed. Continue supplemental oxygen as needed for O2 sats greater than 90%. -Right upper quadrant ultrasound showing cirrhosis/nodular appearance of liver. -Fluid studies not consistent with chylothorax. -Awaiting repeat cell count, cytology, Gram stain. BELEM on CKD. 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 Congestive heart failure could account for fluid collection, turbidity of fluid however concerning for chronic effusion versus secondary to her lymphoma versus infection. hyperlipidemia, gout Patient on allopurinol and atorvastatin, resume pending improvement kidney function On Protonix for GERD. Cardiac diet. Small frequent portions. High-calorie diet Full code await further improvement in Cr, monitor BMP
--- NOTE | 2024-06-12 17:22 | PC.NURSE ---
aox4, has sat up to chair for most of shift and tolerated well. family has remained at bedside. 250 ml bolus given this evening per md verbal order for kidney function/ c/o headache this shift and was medicated per jan with prn tylenol.
[2024-06-12 17:27] LABS: Blood Urea Nitrogen 38 mg/dl (7-17); Creatinine Clearance Estimated 16 mL/min (50-200); Estimated Glomerular Filt Rate 22 ml/min (>60); GFR (African American) 26 ML/MIN (>60)
[2024-06-12] MEDS: 0.9 % SODIUM CHLORIDE 250 ML IV (18:51)
[2024-06-12] MEDS: ATORVASTATIN 20MG TABLET 20 MG PO (20:33)
[2024-06-12] MEDS: FAMOTIDINE 20MG TABLET 10 MG PO (20:34)
[2024-06-13] VITALS (9 sets, daily range): BP systolic 99–128; BP diastolic 47–66; PULSE 60–76; RESP 15–23; TEMP 36.4–36.9; O2SAT 99–100; BMI 21.7
--- NOTE | 2024-06-13 04:17 | PC.NURSE ---
79 yo female pt admitted with hypercalcemia on 06/03. Pt has been A/O X 4. She ambulated in the hallway with assist X 1 this shift and sat up in the chair for approx 2 hours. Pt medicated with tylenol X 1 during the night due to headache and arthritic pain in her fingers, which was effective for comfort. Pt rested comfortably the remainder of shift.
[2024-06-13] MEDS: FLUTICASONE/SALMETEROL 250/50MCG DISKUS 1 PUFF IH ×2 (06:18→19:44)
[2024-06-13] MEDS: LORazepam 0.5MG TABLET 0.25 MG PO (08:33)
[2024-06-13] MEDS: ASPIRIN EC 81MG TABLET 81 MG PO (08:34)
[2024-06-13] MEDS: EMPAGLIFLOZIN 10MG TABLET 10 MG PO (08:34)
[2024-06-13] MEDS: PANTOPRAZOLE 40MG TABLET 40 MG PO (08:34)
[2024-06-13] MEDS: NYSTATIN SUSP 500,000 UNITS/5ML UDC 500000 UNIT PO ×4 (08:35→20:27)
--- NOTE | 2024-06-13 08:42 | XR_ITS ---
PROCEDURE INFORMATION: Exam: XR Chest Exam date and time: 06/13/2024 11:59 AM Age: 79 years old Clinical indication: Shortness of breath; Additional info: SOB TECHNIQUE: Imaging protocol: Radiologic exam of the chest. Views: 1 view. COMPARISON: CR XR CHEST PORTABLE 06/12/2024 11:33 AM FINDINGS: Lungs: Right lower lobe opacification with accompanying moderate pleural effusion again demonstrated. Degree of opacification appears minimally increased. Pleural spaces: Persistent left pleural reactive changes with subsegmental atelectasis. Patchy basilar infiltrates could not be excluded. Heart/Mediastinum: Unremarkable. Cardiomegaly Bones/joints: Unremarkable. IMPRESSION: 1. Persistent moderate right pleural effusion. Findings slightly increased. 2. Right lower lobe pneumonia with underlying atelectasis again suggested. 3. Persistent left pleural reactive changes with subsegmental atelectasis. Patchy basilar infiltrates could not be excluded.
[2024-06-13] MEDS: IPRATROPIUM/ALBUTEROL 3 ML NEB IH (08:50)
--- NOTE | 2024-06-13 15:35 | PC.NURSE ---
aox4, has sat up to chair for most fo shift and tolerated well. did c/o anxiety and sob earlier in the shift, ativan and duoneb admin per jan, dr couch also ordered a cxray. otherwise no complaints. still tolerating room air well.
--- NOTE | 2024-06-13 17:33 | P.PN_ITS ---
Subjective *Date: 06/13/24 *Time: 17:33 Interval history: seen at bedside, sitting in chair, she had episodes of SOB this morning Exam Data for Last 24 hours Vital signs and Labs for Last 24 Hours: Temp Pulse Resp BP Pulse Ox O2 Del Method O2 Flow Rate 97.7 F 69 18 107/58 L 100 Room Air 2 06/13/24 16:00 06/13/24 16:00 06/13/24 16:00 06/13/24 16:00 06/13/24 16:00 06/13/24 16:46 06/09/24 08:00 FiO2 28 06/08/24 23:22 Laboratory Results - last 24 hr 06/12/24 17:10: BUN 38 H, Creatinine 2.20 H, Estimated Creat Clear 16, Estimated GFR 22 L, Est GFR ( Amer) 26 L I & O for Last 24 hours: Intake & Output 06/10/24 06/11/24 06/12/24 06/13/24 23:59 23:59 23:59 23:59 Intake Total 1250 / 1370 1170 / 1170 990 / 990 930 / 930 Output Total 700 / 700 1000 / 1000 950 / 950 1050 / 1050 Balance 550 / 670 170 / 170 40 / 40 -120 / -120 Weight 49.26 kg 50.167 kg 48.761 kg 48.761 kg Microbiology Reports for the Last 24 Hours: Microbiology 06/08/24 17:57 Pleural Fluid Gram Stain - Final 06/08/24 17:57 Pleural Fluid Body Fluid Culture - Preliminary NO GROWTH AFTER 4 DAYS Constitutional Constitutional: no acute distress *Routine HEENT Exam Head: Present normocephalic Eye: Present EOMI and PERRL ENT: Present mucous membranes moist *Routine Neck Exam Neck: Present supple; Absent lymphadenopathy *Routine Respiratory Exam Respiratory: Present CTA bilaterally *Routine Cardiovascular Exam Cardiovascular: Present RRR *Routine Abdominal Exam Abdominal: Present soft and normoactive bowel sounds; Absent tenderness *Routine Extremities Exam Extremities: Absent cyanosis, clubbing or edema *Routine Skin Exam Skin: Present warm; Absent rash *Routine Neurological Exam Neurological: Present alert and oriented X3 Assessment and Plan *Assessment and plan (1) Serum calcium elevated: Status: Acute Category: Medical Code(s): E83.52 - Hypercalcemia (2) Recurrent right pleural effusion: Status: Acute Category: Medical Code(s): J90 - Pleural effusion, not elsewhere classified (3) Diastolic CHF: Status: Acute Qualifiers: Heart failure chronicity: chronic Qualified Code(s): I50.32 - Chronic diastolic (congestive) heart failure Category: Medical Code(s): I50.30 - Unspecified diastolic (congestive) heart failure (4) SOB (shortness of breath): Status: Acute Category: Medical Code(s): R06.02 - Shortness of breath (5) Acute kidney injury superimposed on CKD: Status: Acute Category: Medical Code(s): N17.9 - Acute kidney failure, unspecified; N18.9 - Chronic kidney disease, unspecified (6) Mediastinal lymphadenopathy: Status: Acute Category: Medical Code(s): R59.0 - Localized enlarged lymph nodes (7) Pulmonary nodules/lesions, multiple: Status: Acute Category: Medical Code(s): R91.8 - Other nonspecific abnormal finding of lung field (8) Non-Hodgkin lymphoma: Status: Acute Category: Medical Code(s): C85.90 - Non-Hodgkin lymphoma, unspecified, unspecified site (9) HTN (hypertension): Status: Chronic Qualifiers: Hypertension type: essential hypertension Qualified Code(s): I10 - Essential (primary) hypertension Category: Medical Code(s): I10 - Essential (primary) hypertension (10) HLD (hyperlipidemia): Status: Chronic Qualifiers: Hyperlipidemia type: mixed hyperlipidemia Qualified Code(s): E78.2 - Mixed hyperlipidemia Category: Medical Code(s): E78.5 - Hyperlipidemia, unspecified (11) Lymphoma: Status: Chronic Qualifiers: Lymphoma type: unspecified type Lymphoma site: unspecified region Qualified Code(s): C85.90 - Non-Hodgkin lymphoma, unspecified, unspecified site Category: Medical Code(s): C85.90 - Non-Hodgkin lymphoma, unspecified, unspecified site (12) Severe protein-calorie malnutrition: Status: Acute Category: Medical Code(s): E43 - Unspecified severe protein-calorie malnutrition Plan 78 years old female with PMHx non-Hodgkin lymphoma, pulmonary hypertension, diastolic CHF, A-fib on chronic anticoagulation, hypertension hyperlipidemia CAD right pleural effusion, presented to [facility] ER complaining for shortness of breath. While was in the ER lab was significant for hypercalcemia 16.9, creatinine of 1.9, hemoglobin 10. 5. CT of the chest was obtained, concerning for a large right pleural effusion with worsening. Numerous small nodules present in the right thigh the upper right nodule are smaller than prior atelectasis in the right middle lobe extensive lymphadenopathy within the mediastinum. This finding were discussed with the referring provider. Patient transferred to our institution for further management. Has undergone thoracentesis twice. Once on 06/03 with drainage of 1700 cc of fluid. Repeat drainage on 06/05 with 1600 cc off. 700 cc removed 06/08. On room air today. Chest x-ray personally reviewed today showing improvement. Completed 5 days of antibiotics. Clinically appears stable or discharge when accepted for rehab. Cotinues to require inpatient management. Goals of care discussion daily. Problems addressed as follows. Acute hypoxemic respiratory failure secondary to recurrent right pleural effusion: improved Pulmonary nodules Mediastinal lymphadenopathy History of non-Hodgkin follicular lymphoma Continue DuoNebs every 6 hours as needed. Continue supplemental oxygen as needed for O2 sats greater than 90%. Recurrent R sided pleural effusion - resume home bumex 1mg daily - NPO after MN - thoracentesis ordered for tomorrow -Right upper quadrant ultrasound showing cirrhosis/nodular appearance of liver. -Fluid studies not consistent with chylothorax. -Awaiting repeat cell count, cytology, Gram stain. BELEM on CKD. 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 Congestive heart failure could account for fluid collection, turbidity of fluid however concerning for chronic effusion versus secondary to her lymphoma versus infection. hyperlipidemia, gout Patient on allopurinol and atorvastatin, resume pending improvement kidney function On Protonix for GERD. Cardiac diet. Small frequent portions. High-calorie diet Full code thoracentesis tomorrow, resume bumex, and NPO after MN
[2024-06-13] MEDS: BUMETANIDE 1 MG TABLET PO (18:18)
[2024-06-13] MEDS: ATORVASTATIN 20MG TABLET 20 MG PO (20:27)
[2024-06-13] MEDS: FAMOTIDINE 20MG TABLET 10 MG PO (20:27)
[2024-06-13] MEDS: ACETAMINOPHEN 325MG TAB 650 MG PO (23:40)
[2024-06-14] VITALS (7 sets, daily range): BP systolic 103–149; BP diastolic 52–74; PULSE 60–75; RESP 11–20; TEMP 36.4–36.8; O2SAT 97–100; BMI 22.7
--- NOTE | 2024-06-14 04:12 | PC.NURSE ---
79 yo female admitted with hypercalcemia. She is A/O X 4 and is able to ambulated short distances to BR with assist. Daughter remains at bedside. She was medicated with tylenol due to complaints of generalized discomfort which was effective. Pt becomes SOA with walking just a few steps or if positioned too low in bed. Edema remains to BLE. Pt has been NPO since NV in anticipation of thoracentesis. She remains in A fib on the monitor. Sats above 90 on RA. Pt reported nystatin s/s not effective for mouth discomfort. Request made for magic mouthwash to begin this am per order
[2024-06-14] MEDS: FLUTICASONE/SALMETEROL 250/50MCG DISKUS 1 PUFF IH ×2 (06:17→20:48)
[2024-06-14] MEDS: BUMETANIDE 1 MG TABLET PO (08:01)
[2024-06-14] MEDS: PANTOPRAZOLE 40MG TABLET 40 MG PO (08:01)
[2024-06-14] MEDS: ASPIRIN EC 81MG TABLET 81 MG PO (08:01)
[2024-06-14] MEDS: EMPAGLIFLOZIN 10MG TABLET 10 MG PO (08:01)
[2024-06-14 09:09] LABS: 1,25 Dihydroxy Vitamin D 44 pg/mL (.); 1,25-Dihydroxy, Vitamin D-2 <10 pg/mL (.); 1,25-Dihydroxy, Vitamin D-3 44 pg/mL (.)
[2024-06-14] MEDS: MAGIC MOUTHWASH 300ML BOTTLE 15 ML PO ×4 (09:17→20:34)
[2024-06-14] MEDS: ACETAMINOPHEN 325MG TAB 650 MG PO (09:27)
--- NOTE | 2024-06-14 09:47 | CARE MANAGER ---
Patient is scheduled for thorocentesis, but apparently no provider is here today for this to be completed.
[2024-06-14 11:35] LABS: Basophils # 0.1 K/mm3 (0-0.2); Basophils % 0.8 % (0.1-2.0); Eosinophils # 0.1 K/mm3 (0.0-0.4); Eosinophils % 1.6 % (0.1-12.0); Hematocrit 32.1 % (37.0-47.0); Lymphocytes # 0.7 K/mm3 (0.7-4.5); Lymphocytes % 12.6 % (10-50); Mean Corpuscular Hemoglobin 28.6 pg (27.0-31.2); Mean Corpuscular Volume 92.2 fl (81-99); Mean Platelet Volume 8.3 fl (7.4-10.4); Monocytes # 0.4 K/mm3 (0.1-1.0); Monocytes % 7.4 % (1.7-9.3); Neutrophils # 4.5 K/mm3 (1.8-7.8); Neutrophils % 77.6 % (37.0-80.0); Platelet Count 187 K/mm3 (142-424); Red Blood Count 3.49 M/mm3 (4.20-5.40); Red Cell Distribution Width 17.2 % (11.5-17.5); White Blood Count 5.8 K/mm3 (4.8-10.8)
[2024-06-14 11:42] LABS: Chloride 107 mmol/L (98-107); Potassium 3.6 mmoL/L (3.5-5.1); Sodium 133 mmol/L (136-145)
[2024-06-14 11:45] LABS: Alanine Aminotransferase 34 U/L (12-78); Albumin/Globulin Ratio 1.4 (1.1-1.8); Alkaline Phosphatase 173 U/L (38-126); Anion Gap 7.6 mEq/L (5-15); Aspartate Amino Transferase 60 U/L (14-36); Bilirubin,Total 0.5 mg/dl (0.2-1.3); Blood Urea Nitrogen 35 mg/dl (7-17); Calcium 7.9 mg/dl (8.4-10.2); Carbon Dioxide 22 mmol/L (22.0-30.0); Creatinine Clearance Estimated 20 mL/min (50-200); Estimated Glomerular Filt Rate 26 ml/min (>60); GFR (African American) 31 ML/MIN (>60); Globulin 2.2 g/dL (1.3-3.2); Glucose 94 mg/dl (74-100); Total Protein,Serum 5.2 g/dl (6.3-8.2)
[2024-06-14] MEDS: ALLOPURINOL 100MG TABLET 100 MG PO (13:24)
--- NOTE | 2024-06-14 17:53 | P.PN_ITS ---
Subjective *Date: 06/14/24 *Time: 17:53 Interval history: seen at bedside, denied any complains today, denied CP, SOB, N/V Exam Data for Last 24 hours Vital signs and Labs for Last 24 Hours: Temp Pulse Resp BP Pulse Ox O2 Del Method O2 Flow Rate 97.5 F L 66 17 133/65 100 Room Air 2 06/14/24 16:00 06/14/24 16:00 06/14/24 16:00 06/14/24 16:00 06/14/24 16:00 06/14/24 17:00 06/09/24 08:00 FiO2 28 06/08/24 23:22 Laboratory Results - last 24 hr 06/03/24 11:40: 1,25 Dihydroxy Vit D 44, 1,25 Dihydroxy Vit D2 <10, 1,25 Dihydroxy Vit D3 44 06/08/24 17:57: Miscellaneous Test 499 06/14/24 11:16: WBC 5.8, RBC 3.49 L, Hgb 10.0 L, Hct 32.1 L, MCV 92.2, MCH 28.6, MCHC 31.0 L, RDW 17.2, Plt Count 187, MPV 8.3, Neut % (Auto) 77.6, Lymph % (Auto) 12.6, [place] % (Auto) 7.4, Eos % (Auto) 1.6, Baso % (Auto) 0.8, Neut # (Auto) 4.5, Lymph # (Auto) 0.7, [place] # (Auto) 0.4, Eos # (Auto) 0.1, Baso # (Auto) 0.1, Sodium 133 L, Potassium 3.6, Chloride 107, Carbon Dioxide 22, Anion Gap 7.6, BUN 35 H, Creatinine 1.90 H, Estimated Creat Clear 20, Estimated GFR 26 L, Est GFR ( Amer) 31 L, Glucose 94, Calcium 7.9 L, Total Bilirubin 0.5, AST 60 H, ALT 34, Alkaline Phosphatase 173 H, Total Protein 5.2 L, Albumin 3.0 L , Globulin 2.2, Albumin/Globulin Ratio 1.4 I & O for Last 24 hours: Intake & Output 06/11/24 06/12/24 06/13/24 06/14/24 23:59 23:59 23:59 23:59 Intake Total 1170 / 1170 990 / 990 1170 / 1170 350 / 350 Output Total 1000 / 1000 950 / 950 1050 / 1450 1350 / 1350 Balance 170 / 170 40 / 40 120 / -280 -1000 / -1000 Weight 50.167 kg 48.761 kg 48.761 kg 51.256 kg Microbiology Reports for the Last 24 Hours: Microbiology 06/08/24 17:57 Pleural Fluid Gram Stain - Final 06/08/24 17:57 Pleural Fluid Body Fluid Culture - Final NO GROWTH AFTER 5 DAYS Constitutional Constitutional: no acute distress *Routine HEENT Exam Head: Present normocephalic Eye: Present EOMI and PERRL ENT: Present mucous membranes moist *Routine Neck Exam Neck: Present supple; Absent lymphadenopathy *Routine Respiratory Exam Respiratory: Present CTA bilaterally *Routine Cardiovascular Exam Cardiovascular: Present RRR *Routine Abdominal Exam Abdominal: Present soft and normoactive bowel sounds; Absent tenderness *Routine Extremities Exam Extremities: Absent cyanosis, clubbing or edema *Routine Skin Exam Skin: Present warm; Absent rash *Routine Neurological Exam Neurological: Present alert and oriented X3 Assessment and Plan *Assessment and plan (1) Serum calcium elevated: Status: Acute Category: Medical Code(s): E83.52 - Hypercalcemia (2) Recurrent right pleural effusion: Status: Acute Category: Medical Code(s): J90 - Pleural effusion, not elsewhere classified (3) Diastolic CHF: Status: Acute Qualifiers: Heart failure chronicity: chronic Qualified Code(s): I50.32 - Chronic diastolic (congestive) heart failure Category: Medical Code(s): I50.30 - Unspecified diastolic (congestive) heart failure (4) SOB (shortness of breath): Status: Acute Category: Medical Code(s): R06.02 - Shortness of breath (5) Acute kidney injury superimposed on CKD: Status: Acute Category: Medical Code(s): N17.9 - Acute kidney failure, unspecified; N18.9 - Chronic kidney disease, unspecified (6) Mediastinal lymphadenopathy: Status: Acute Category: Medical Code(s): R59.0 - Localized enlarged lymph nodes (7) Pulmonary nodules/lesions, multiple: Status: Acute Category: Medical Code(s): R91.8 - Other nonspecific abnormal finding of lung field (8) Non-Hodgkin lymphoma: Status: Acute Category: Medical Code(s): C85.90 - Non-Hodgkin lymphoma, unspecified, unspecified site (9) HTN (hypertension): Status: Chronic Qualifiers: Hypertension type: essential hypertension Qualified Code(s): I10 - Essential (primary) hypertension Category: Medical Code(s): I10 - Essential (primary) hypertension (10) HLD (hyperlipidemia): Status: Chronic Qualifiers: Hyperlipidemia type: mixed hyperlipidemia Qualified Code(s): E78.2 - Mixed hyperlipidemia Category: Medical Code(s): E78.5 - Hyperlipidemia, unspecified (11) Lymphoma: Status: Chronic Qualifiers: Lymphoma type: unspecified type Lymphoma site: unspecified region Qualified Code(s): C85.90 - Non-Hodgkin lymphoma, unspecified, unspecified site Category: Medical Code(s): C85.90 - Non-Hodgkin lymphoma, unspecified, unspecified site (12) Severe protein-calorie malnutrition: Status: Acute Category: Medical Code(s): E43 - Unspecified severe protein-calorie malnutrition Plan 78 years old female with PMHx non-Hodgkin lymphoma, pulmonary hypertension, diastolic CHF, A-fib on chronic anticoagulation, hypertension hyperlipidemia CAD right pleural effusion, presented to [facility] ER complaining for shortness of breath. While was in the ER lab was significant for hypercalcemia 16.9, creatinine of 1.9, hemoglobin 10. 5. CT of the chest was obtained, concerning for a large right pleural effusion with worsening. Numerous small nodules present in the right thigh the upper right nodule are smaller than prior atelectasis in the right middle lobe extensive lymphadenopathy within the mediastinum. This finding were discussed with the referring provider. Patient transferred to our institution for further management. Has undergone thoracentesis twice. Once on 06/03 with drainage of 1700 cc of fluid. Repeat drainage on 06/05 with 1600 cc off. 700 cc removed 06/08. On room air today. Chest x-ray personally reviewed today showing improvement. Completed 5 days of antibiotics. Clinically appears stable or discharge when accepted for rehab. Cotinues to require inpatient management. Goals of care discussion daily. Problems addressed as follows. Acute hypoxemic respiratory failure secondary to recurrent right pleural effusion: improved Pulmonary nodules Mediastinal lymphadenopathy History of non-Hodgkin follicular lymphoma Continue DuoNebs every 6 hours as needed. Continue supplemental oxygen as needed for O2 sats greater than 90%. Recurrent R sided pleural effusion - resume home bumex 1mg daily - NPO after MN - thoracentesis ordered for tomorrow -Right upper quadrant ultrasound showing cirrhosis/nodular appearance of liver. -Fluid studies not consistent with chylothorax. -Awaiting repeat cell count, cytology, Gram stain. BELEM on CKD. 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 Congestive heart failure could account for fluid collection, turbidity of fluid however concerning for chronic effusion versus secondary to her lymphoma versus infection. hyperlipidemia, gout Patient on allopurinol and atorvastatin, resume pending improvement kidney function On Protonix for GERD. Cardiac diet. Small frequent portions. High-calorie diet Full code thoracentesis tomorrow, resume bumex, and NPO after MN, yon VELEZ tomorrow, Cr has improved
[2024-06-14] MEDS: FAMOTIDINE 20MG TABLET 10 MG PO (20:34)
[2024-06-14] MEDS: ATORVASTATIN 20MG TABLET 20 MG PO (20:34)
[2024-06-15] VITALS: BP 131/73; PULSE 60; PULSE 78; RESP 20; TEMP 36.7; O2SAT 98
[2024-06-15 04:00] VITALS: BP 119/54; PULSE 60; PULSE 65; RESP 17; TEMP 36.7; O2SAT 98; BMI 22.6
[2024-06-15 06:13] LABS: Basophils % 0.6 % (0.1-2.0); Eosinophils # 0.1 K/mm3 (0.0-0.4); Eosinophils % 1.8 % (0.1-12.0); Hematocrit 31.9 % (37.0-47.0); Hemoglobin 9.7 g/dL (12.2-16.2); Lymphocytes # 0.7 K/mm3 (0.7-4.5); Lymphocytes % 12.5 % (10-50); Mean Corpuscular HGB Conc 30.3 g/dL (31.8-35.4); Mean Corpuscular Hemoglobin 27.9 pg (27.0-31.2); Mean Corpuscular Volume 91.9 fl (81-99); Mean Platelet Volume 7.8 fl (7.4-10.4); Monocytes # 0.5 K/mm3 (0.1-1.0); Monocytes % 8.5 % (1.7-9.3); Neutrophils # 4.3 K/mm3 (1.8-7.8); Neutrophils % 76.6 % (37.0-80.0); Platelet Count 176 K/mm3 (142-424); Red Blood Count 3.47 M/mm3 (4.20-5.40); Red Cell Distribution Width 17.2 % (11.5-17.5); White Blood Count 5.6 K/mm3 (4.8-10.8)
--- NOTE | 2024-06-15 06:13 | PC.NURSE ---
Patient alert and oriented x4 since taking over patient care. Maintaining O2 stats >90% on room air. Pt has been NPO since midnight in anticipation of thoracentesis this AM prior to discharge. She remains in A fib on tele. Patient had a bath prior to going to sleep for the night. Daughter has remained at bedside. No complaints or needs expressed this shift. Call light within reach.
[2024-06-15 06:18] LABS: Chloride 108 mmol/L (98-107); Sodium 134 mmol/L (136-145)
[2024-06-15 06:19] LABS: Potassium 3.3 mmoL/L (3.5-5.1)
[2024-06-15 06:21] LABS: Blood Urea Nitrogen 33 mg/dl (7-17); Creatinine Clearance Estimated 20 mL/min (50-200); Estimated Glomerular Filt Rate 26 ml/min (>60); GFR (African American) 31 ML/MIN (>60)
[2024-06-15 06:22] LABS: Anion Gap 6.3 mEq/L (5-15); Calcium 8.1 mg/dl (8.4-10.2); Carbon Dioxide 23 mmol/L (22.0-30.0); Glucose 89 mg/dl (74-100)
[2024-06-15] MEDS: FLUTICASONE/SALMETEROL 250/50MCG DISKUS 1 PUFF IH (06:31)
[2024-06-15 06:32] VITALS: O2SAT 97
--- NOTE | 2024-06-15 07:15 | US_ITS ---
FINAL REPORT CLINICAL HISTORY: recurrent right sided effusion - 900 ML REMOVED -- BARBARA LOPEZ FINDINGS: ULTRASOUND-GUIDED RIGHT THORACENTESIS HISTORY: Right pleural effusion. ATTENDING PHYSICIAN: Dr. Pineda PHYSICIAN DRUM STENCILER: Therese Varma PA-C TECHNIQUE: Informed consent was obtained from the patient. The indications and complications were discussed with the patient prior to beginning the procedure. This included, but was not limited to pain, bleeding, infection, and pneumothorax requiring chest tube placement. The right back was then prepped and draped in sterile fashion. 1% Lidocaine was used for local anesthesia. Utilizing sonographic guidance, a standard thoracentesis needle and sheath were inserted into the pleural space and approximately 900 mL of cloudy orange, chylous fluid was successfully removed without complication. The patient tolerated the procedure well. IMPRESSION: Technically successful sonographic guided right-sided thoracentesis as above. Reviewed, Interpreted and Dictated by Faustino Pineda III, MD Transcribed by Therese Varma PA-C Authenticated and [facility]
[2024-06-15 08:00] VITALS: BP 124/70; PULSE 69; PULSE 70; RESP 20; TEMP 36.7; O2SAT 98
[2024-06-15] MEDS: MAGIC MOUTHWASH 300ML BOTTLE 15 ML PO (10:08)
[2024-06-15] MEDS: EMPAGLIFLOZIN 10MG TABLET 10 MG PO (10:09)
[2024-06-15] MEDS: ALLOPURINOL 100MG TABLET 100 MG PO (10:09)
[2024-06-15] MEDS: BUMETANIDE 1 MG TABLET PO (10:09)
[2024-06-15] MEDS: PANTOPRAZOLE 40MG TABLET 40 MG PO (10:09)
--- NOTE | 2024-06-15 11:04 | XR_ITS ---
FINAL REPORT CLINICAL HISTORY: post thoracentesis COMPARISON: 06/13/2024 FINDINGS: SINGLE-VIEW CHEST There is cardiomegaly. Patient is status post median sternotomy. There is a small effusion. Right effusion has improved. There is no pneumothorax. IMPRESSION: Improved right effusion without pneumothorax. Reviewed, Interpreted and Dictated by Faustino Pineda III, MD Transcribed by Kayla Rangel Authenticated and [facility]
[2024-06-15 12:00] VITALS: BP 121/58; PULSE 67; PULSE 80; RESP 18; TEMP 36.6; O2SAT 99
--- NOTE | 2024-06-15 12:44 | EXP.DC.SUM ---
General Admission date:: 06/03/24 Discharge date: 06/15/24 HPI HPI HPI: This is a 78 years old female with PMHx non-Hodgkin lymphoma, pulmonary hypertension, diastolic CHF, A-fib on chronic anticoagulation, hypertension hyperlipidemia CAD right pleural effusion, presented to [facility] ER complaining for shortness of breath. Patient has been seen twice in the last week for similar reasons. Has recently surgical drained the effussion, with recurrence. Patient was brought to the ER by daughter stating that she is very weak confused and generally not feeling well. Patient alert and oriented x 3, seen forgetful but not confused on exam. Complaining of weakness dizziness and shortness of breath. She denies fever nausea and vomiting but does report some diarrhea after recent diagnosis of UTI with antibiotic treatment. On arrival patient was found to have worsening right pleural effusion hypercalcemia and acute kidney injury., Therefore transfer was requested. Accepted and admitted here for further workup. Hospital Course Hospital Course Hospital Course: 78 years old female with PMHx non-Hodgkin lymphoma, pulmonary hypertension, diastolic CHF, A-fib on chronic anticoagulation, hypertension hyperlipidemia CAD right pleural effusion, presented to [facility] ER complaining for shortness of breath. While was in the ER lab was significant for hypercalcemia 16.9, creatinine of 1.9, hemoglobin 10.5. CT of the chest was obtained, concerning for a large right pleural effusion with worsening. Numerous small nodules present in the right thigh the upper right nodule are smaller than prior atelectasis in the right middle lobe extensive lymphadenopathy within the mediastinum. This finding were discussed with the referring provider. Patient transferred to our institution for further management. Upon treatment for hypercalcemia. Pulmonology was consulted and assisted with care. Responded to repeated thoracenteses. Once on 06/03 with drainage of 1700 cc of fluid. Repeat drainage on 06/05 with 1600 cc off. 700 cc removed 06/08. ~1L removed on 06/15 prior to discharge. Clinically improved and stable on room air. Initial plan was to discharge to rehab. After much discussion with family, plan to discharge home with home health. Will have close follow-up with subspecialists in the coming weeks. Stable to discharge at this time. Problems addressed as follows: Acute hypoxemic respiratory failure secondary to recurrent right pleural effusion: Pulmonary nodules Mediastinal lymphadenopathy History of non-Hodgkin follicular lymphoma -Found to have respiratory failure secondary to pleural effusion. Very large effusion on presentation. Multiple thoracenteses performed during admission. Initiated on diuretics. Showed gradual improvement. Treated empiric course of antibiotics with levofloxacin. White count remained within normal range during admission. May necessitate further thoracenteses after discharge. Recommend following up with pulmonology. If becomes acutely dyspneic, instructed to return to ER for further management. Stable on room air on day of discharge. -Right upper quadrant ultrasound showing cirrhosis/nodular appearance of liver. -Fluid studies showed triglycerides of 499. Not completely consistent with chylothorax. Concern secondary to heart failure. Cytology negative. BELEM on CKD. Prerenal likely due to excessive diuresis Hypercalcemia secondary to malignancy versus hemoconcentration -Severe hypercalcemia initially present on admission. Treated with calcitonin at outside hospital prior to transfer, 1 dose of zoledronic acid on admission. Showed gradual improvement. Calcium stable and in normal range today 8.1 on morning of discharge. Kidney function remained stable around patient's baseline with BUN 33, creatinine 1.9 on day of discharge. Continue to have adequate urine output and response to diuretics. Continue aggressive diuresis. Kidney function appears to be at patient's new baseline. 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 Review of chart shows echo from 2 years ago with severely elevated right-sided pressures, RVSP in the 70s. Patient also has severe valvular disease. Repeat echo shows severe right-sided dilation and elevated RVSP. Congestive heart failure could account for fluid collection, turbidity of fluid however concerning for chronic effusion versus secondary to her lymphoma versus infection. Continue treatment for heart failure. Cardiology assisted with care. Continue aggressive diuresis with Bumex 1 mg daily. Initiate potassium supplementation daily. Tolerating current regimen. hyperlipidemia, gout: Patient on allopurinol and atorvastatin, resume at discharge. Discharged home with family and order for home health. Total time spent on discharge 45 minutes in counseling, documentation, chart review, and direct care with patient. Exam Data for Last 24 hours Vital signs and Labs for Last 24 Hours: Temp Pulse Resp BP Pulse Ox O2 Del Method O2 Flow Rate 98.1 F 69 20 124/70 98 Nasal Cannula 3 06/15/24 08:00 06/15/24 08:00 06/15/24 08:00 06/15/24 08:00 06/15/24 08:00 06/15/24 10:26 06/15/24 10:26 FiO2 28 06/08/24 23:22 Laboratory Results - last 24 hr 06/15/24 05:18: WBC 5.6, RBC 3.47 L, Hgb 9.7 L, Hct 31.9 L, MCV 91.9, MCH 27.9, MCHC 30.3 L, RDW 17.2, Plt Count 176, MPV 7.8, Neut % (Auto) 76.6, Lymph % (Auto) 12.5, [place] % (Auto) 8.5, Eos % (Auto) 1.8, Baso % (Auto) 0.6, Neut # (Auto) 4.3, Lymph # (Auto) 0.7, [place] # (Auto) 0.5, Eos # (Auto) 0.1, Baso # (Auto) 0.0, Sodium 134 L, Potassium 3.3 L, Chloride 108 H, Carbon Dioxide 23, Anion Gap 6.3, BUN 33 H, Creatinine 1.90 H, Estimated Creat Clear 20, Estimated GFR 26 L, Est GFR ( Amer) 31 L, Glucose 89, Calcium 8.1 L I & O for Last 24 hours: Intake & Output 06/12/24 06/13/24 06/14/24 06/15/24 23:59 23:59 23:59 23:59 Intake Total 990 / 990 1170 / 1170 710 / 710 Output Total 950 / 950 1050 / 1450 1350 / 1350 400 / 400 Balance 40 / 40 120 / -280 -640 / -640 -400 / -400 Weight 48.761 kg 48.761 kg 51.256 kg 50.938 kg Microbiology Reports for the Last 24 Hours: Microbiology 06/08/24 17:57 Pleural Fluid Gram Stain - Final 06/08/24 17:57 Pleural Fluid Body Fluid Culture - Final NO GROWTH AFTER 5 DAYS Constitutional Constitutional: no acute distress, thin, chronically ill appearing and cooperative *Routine HEENT Exam Head: Present normocephalic Eye: Present EOMI and PERRL ENT: Present mucous membranes moist *Routine Neck Exam Neck: Present supple; Absent lymphadenopathy *Routine Respiratory Exam Respiratory: Present crackles (right lower lung field) and normal respiratory effort; Absent rhonchi *Routine Cardiovascular Exam Cardiovascular: Present RRR and S4 *Routine Abdominal Exam Abdominal: Present soft and normoactive bowel sounds; Absent tenderness *Routine Rectal Exam Patient deferred: visual exam *Routine Exam Patient deferred: external exam *Routine Extremities Exam Extremities: Present edema (1+ BLE); Absent cyanosis or clubbing *Routine Skin Exam Skin: Present intact and warm; Absent rash *Routine Neurological Exam Neurological: Present alert, oriented X3 and moving all extremities; Absent altered mental status Results Data Completed and Pending Labs on day of discharge: Labs from last 24 hours 06/15/24 05:18 WBC 5.6 RBC 3.47 L Hgb 9.7 L Hct 31.9 L MCV 91.9 MCH 27.9 MCHC 30.3 L RDW 17.2 Plt Count 176 MPV 7.8 Neut % (Auto) 76.6 Lymph % (Auto) 12.5 [place] % (Auto) 8.5 Eos % (Auto) 1.8 Baso % (Auto) 0.6 Neut # (Auto) 4.3 Lymph # (Auto) 0.7 [place] # (Auto) 0.5 Eos # (Auto) 0.1 Baso # (Auto) 0.0 Sodium 134 L Potassium 3.3 L Chloride 108 H Carbon Dioxide 23 Anion Gap 6.3 BUN 33 H Creatinine 1.90 H Estimated Creat Clear 20 Estimated GFR 26 L Est GFR ( Amer) 31 L Glucose 89 Calcium 8.1 L DS: Diagnosis Discharge Diagnosis (1) Serum calcium elevated: Status: Acute Code(s): E83.52 - Hypercalcemia (2) Recurrent right pleural effusion: Status: Acute Code(s): J90 - Pleural effusion, not elsewhere classified (3) Diastolic CHF: Status: Acute Code(s): I50.30 - Unspecified diastolic (congestive) heart failure Qualifiers: Heart failure chronicity: chronic Qualified Code(s): I50.32 - Chronic diastolic (congestive) heart failure (4) SOB (shortness of breath): Status: Acute Code(s): R06.02 - Shortness of breath (5) Acute kidney injury superimposed on CKD: Status: Acute Code(s): N17.9 - Acute kidney failure, unspecified; N18.9 - Chronic kidney disease, unspecified (6) Mediastinal lymphadenopathy: Status: Acute Code(s): R59.0 - Localized enlarged lymph nodes (7) Pulmonary nodules/lesions, multiple: Status: Acute Code(s): R91.8 - Other nonspecific abnormal finding of lung field (8) Non-Hodgkin lymphoma: Status: Acute Code(s): C85.90 - Non-Hodgkin lymphoma, unspecified, unspecified site (9) HTN (hypertension): Status: Chronic Code(s): I10 - Essential (primary) hypertension Qualifiers: Hypertension type: essential hypertension Qualified Code(s): I10 - Essential (primary) hypertension (10) HLD (hyperlipidemia): Status: Chronic Code(s): E78.5 - Hyperlipidemia, unspecified Qualifiers: Hyperlipidemia type: mixed hyperlipidemia Qualified Code(s): E78.2 - Mixed hyperlipidemia (11) Lymphoma: Status: Chronic Code(s): C85.90 - Non-Hodgkin lymphoma, unspecified, unspecified site Qualifiers: Lymphoma site: unspecified region Lymphoma type: unspecified type Qualified Code(s): C85.90 - Non-Hodgkin lymphoma, unspecified, unspecified site (12) Severe protein-calorie malnutrition: Status: Acute Code(s): E43 - Unspecified severe protein-calorie malnutrition Meds Home Medications and Allergies Home Medications ?Medication ?Instructions ?Recorded ?Confirmed ?Type famotidine 20 mg tablet 20 mg PO BID GERD 10/09/20 06/03/24 History fluticasone 250 mcg-salmeterol 50 1 inh inhalation BID 10/09/20 06/03/24 History mcg/dose blistr powdr for inhalation albuterol sulfate 90 mcg/actuation 2 puff inhalation Q4HP PRN 03/12/21 06/03/24 History aerosol inhaler Shortness Of Breath Or Wheezing cholecalciferol (vitamin D3) 25 25 mcg PO DAILY Diet supplement 12/19/21 06/03/24 History mcg (1,000 unit) tablet cyanocobalamin (vitamin B-12) 50 mcg PO DAILY Diet supplement 12/19/21 06/03/24 History 2,500 mcg tablet atorvastatin 20 mg tablet 20 mg PO HS 30 days #30 tabs 12/21/21 06/03/24 Rx allopurinol 100 mg tablet 100 mg PO DAILY 06/10/24 06/10/24 History aspirin 81 mg tablet,delayed 81 mg PO DAILY 30 days #30 tabs 06/15/24 Rx release bumetanide 1 mg tablet 1 mg PO DAILY 30 days #30 tabs 06/15/24 Rx empagliflozin 10 mg tablet 10 mg PO DAILY 30 days #30 tabs 06/15/24 Rx (Jardiance) potassium chloride 20 mEq 20 meq PO DAILY #30 tabs 06/15/24 Rx tablet,extended release New Prescriptions to Start Prescriptions: Enrique Burris bumetanide Enrique aYdav empagliflozin [Jardiance] Enrique Yadva potassium chloride Enrique Yadav Allergies Allergy/AdvReac Type Severity Reaction Status Date / Time Iodinated Contrast Media Allergy Verified 06/03/24 02:35 azithromycin AdvReac Verified 06/03/24 02:35 cefuroxime AdvReac Verified 06/03/24 02:35 doxycycline AdvReac Verified 06/03/24 02:35 Discharge Plan Disposition Patient Disposition: Home Health Service Condition: Fair Discharge Order Discharge Orders: Discharge Order (Routine); Ordered 06/15/24 Ordered By: Enrique Yadav Follow up Plan Follow up with: Carlos Damian MD [Physician] - 06/21/24 2:15 pm Prescriptions/Medication Reconciliation: New aspirin 81 mg Tablet,Delayed Release (Dr/Ec) 81 mg PO DAILY 30 Days Qty: 30 0RF bumetanide 1 mg Tablet 1 mg PO DAILY 30 Days Qty: 30 0RF Jardiance 10 mg Tablet 10 mg PO DAILY 30 Days Qty: 30 0RF potassium chloride 20 mEq tablet extended release 20 meq PO DAILY Qty: 30 0RF Continued albuterol sulfate 90 mcg/actuation HFA aerosol inhaler 2 puff INHALATION Q4HP PRN (Reason: Shortness Of Breath Or Wheezing) Patient Comments: INHALE 2 PUFFS BY MOUTH EVERY 4 TO 6 HOURS NEEDED fluticasone propion-salmeterol 250-50 mcg/dose blister with device 1 inh INHALATION BID famotidine 20 mg tablet 20 mg PO BID Patient Comments: TAKE 1 TABLET BY MOUTH TWICE DAILY allopurinol 100 mg Tablet 100 mg PO DAILY cholecalciferol (vitamin D3) 25 MCG tablet 25 mcg PO DAILY cyanocobalamin (vitamin B-12) 2,500 MCG tablet 50 mcg PO DAILY atorvastatin 20 MG tablet 20 mg PO HS 30 Days Qty: 30 0RF Discontinued metolazone 2.5 mg tablet 2.5 mg PO MOWEFR Patient Comments: Take on Friday, Fri, Friday furosemide 80 mg tablet 80 mg PO Q48H Patient Comments: TAKE 1 TABLET BY MOUTH ONCE DAILY Other Ambulatory Orders: Home Medical Equipment (Routine) Location: None Selected Ordered By: Ang Arteaga Home Medical Equipment (Routine) Location: None Selected Ordered By: Enrique Yadav Problem Reconciliation Problems Reviewed?: Yes Patient Discharge Instructions ACTIVITY: Continue current activity and Up with assistance DIET: continue same diet Patient Instructions: DI for Heart Failure, DI for Thoracentesis, DI for Hypercalcemia, DI for Surgical Site Infection, DI for Pleural Effusion, DI for Acute Kidney Injury Print Language: Burmese Providers Primary Care Provider: Kaya Camacho Admit Provider: Enrique Yadav Attending Provider: Enrique Yadav
--- NOTE | 2024-06-16 14:08 | CARE MANAGER ---
Contacted patient's daughter related to hospital discharge. She states they had questions about medication, but they spoke to someone earlier. They deny any other questions or concerns. She is taking appropriate medication and is aware of follow up appointment. SANTOS Solorio
[2024-06-18 12:03] LABS: Miscellaneous Test 499
== END 2024-06-15 14:56 | disposition home health service (06) | DRG 682 ==
PROVIDERS: Internal Medicine; Internal Medicine Pulmonary Disease; Nurse Practitioner Family; Admitting Provider Internal Medicine Adolescent Medicine; PCP Physician Assistant Medical; Visit Provider Internal Medicine Adolescent Medicine
DX: I13.10 Hypertensive heart and chronic kidney disease without heart failure, with stage 1 through stage 4 chronic kidney disease, or unspecified chronic kidney disease (principal); E43 Unspecified severe protein-calorie malnutrition; J96.21 Acute and chronic respiratory failure with hypoxia; N17.9 Acute kidney failure, unspecified; C85.90 Non-Hodgkin lymphoma, unspecified, unspecified site; J90 Pleural effusion, not elsewhere classified; I50.40 Unspecified combined systolic (congestive) and diastolic (congestive) heart failure; E87.8 Other disorders of electrolyte and fluid balance, not elsewhere classified; E83.52 Hypercalcemia; R59.0 Localized enlarged lymph nodes; E78.2 Mixed hyperlipidemia; Z79.01 Long term (current) use of anticoagulants; I27.20 Pulmonary hypertension, unspecified; N18.9 Chronic kidney disease, unspecified; M10.9 Gout, unspecified; K21.9 Gastro-esophageal reflux disease without esophagitis; R44.1 Visual hallucinations; M81.0 Age-related osteoporosis without current pathological fracture; Z95.1 Presence of aortocoronary bypass graft; Z68.22 Body mass index [BMI] 22.0-22.9, adult; I35.0 Nonrheumatic aortic (valve) stenosis; E78.5 Hyperlipidemia, unspecified; I48.0 Paroxysmal atrial fibrillation; I25.10 Atherosclerotic heart disease of native coronary artery without angina pectoris
CPT/HCPCS: 32555 ×2; G0379; 36415; 71045; 71250; 76705; 80048; 80053; 82042; 82164; 82306; 82565; 82652; 82945; 83615; 83735; 83880; 84155; 84484; 84520; 85025; 85610; 87040; 87070; 87205; 88112; 88305; 89051; 93306; 94640; 94761; 97110; 97116; 97162; 97166; 97530; J1650; J1940; J1956; J2405; J3475; J3489; J7120; J7620

== ENCOUNTER 2024-06-25 11:47 | Outpatient (CLI) | payer MEDICARE, SELFPAY ==
--- NOTE | 2024-06-25 11:56 | XR_ITS ---
FINAL REPORT CLINICAL HISTORY: Pleural effusion COMPARISON: 06/13/2024 FINDINGS: TWO-VIEW CHEST There is moderate cardiomegaly. The mediastinum is normal. Moderate right effusion and right base atelectasis is identified. The left lung is clear. There is no pneumothorax. IMPRESSION: Moderate right pleural effusion. Reviewed, Interpreted and Dictated by Adiel Bellamy MD Transcribed by Kayla Rangel Authenticated and [facility]
== END 2024-06-25 23:59 | disposition home or self-care (01) ==
LOC: RAD 11:49
PROVIDERS: PCP Physician Assistant Medical; Visit Provider Internal Medicine Pulmonary Disease
DX: R06.02 Shortness of breath (principal)
CPT/HCPCS: 71046

== ENCOUNTER 2024-07-02 09:54 | Outpatient (CLI) | payer MEDICARE, SELFPAY ==
--- NOTE | 2024-07-02 09:55 | US_ITS ---
FINAL REPORT CLINICAL HISTORY: Rt PLEURAL effusion -- THORACENTESIS RT -- 1250ML -- SIMIN LOPEZ FINDINGS: ULTRASOUND-GUIDED THORACENTESIS HISTORY: Pleural effusion. ATTENDING PHYSICIAN: Dr. Bellamy PHYSICIAN HOG PUSHER: Simin Parnell PA-C TECHNIQUE: Informed consent was obtained from the patient. The indications and complications were discussed with the patient prior to beginning the procedure. This included, but was not limited to pain, bleeding, infection, and pneumothorax requiring chest tube placement. The right back was then prepped and draped in sterile fashion. 1% Lidocaine was used for local anesthesia. Utilizing sonographic guidance, a standard thoracentesis needle and sheath were inserted into the pleural space and approximately 1250mL of clear pleural fluid was successfully removed without complication. The patient tolerated the procedure well. IMPRESSION: Technically successful sonographic guided left-sided thoracentesis as above. Films reviewed , interpreted and dictated by Dr. Bellamy. Transcribed by Simin Parnell PA-C. Reviewed, Interpreted and Dictated by Adiel Bellamy MD Transcribed by JOHN Benjamin Authenticated and [facility]
[2024-07-02 10:10] VITALS: BMI 20.2
[2024-07-02 10:14] VITALS: BP 141/70; PULSE 75; RESP 18; TEMP 36.2; O2SAT 99
--- NOTE | 2024-07-02 10:50 | XR_ITS ---
FINAL REPORT CLINICAL HISTORY: Status post thoracentesis. FINDINGS: A single view of the chest was obtained. There is mild cardiomegaly. The patient is status post median sternotomy. A small right effusion has significantly improved compared to the prior exam. There is mild overlying atelectasis. There is no pneumothorax. There is no acute osseous abnormality. IMPRESSION: Significant improvement in small right pleural effusion with mild overlying atelectasis. Reviewed, Interpreted and Dictated by Adiel Bellamy MD Transcribed by Karli Santiago Authenticated and [facility]
[2024-07-02 11:00] VITALS: BP 126/76; PULSE 61; RESP 19; TEMP 36.2; O2SAT 98
[2024-07-02 11:15] VITALS: BP 143/76; PULSE 84; RESP 17; O2SAT 100
[2024-07-02 11:30] VITALS: BP 128/76; PULSE 81; RESP 19; O2SAT 100
[2024-07-02 11:45] VITALS: BP 136/80; PULSE 73; RESP 18; O2SAT 100
[2024-07-02 12:00] VITALS: BP 119/77; PULSE 83; RESP 19; TEMP 36.4; O2SAT 100
== END 2024-07-02 12:10 | disposition home or self-care (01) ==
PROVIDERS: PCP Physician Assistant Medical; Visit Provider Internal Medicine Pulmonary Disease
DX: J90 Pleural effusion, not elsewhere classified (principal)
CPT/HCPCS: 32555; 71045

== ENCOUNTER 2024-08-23 14:42 | Outpatient (CLI) | payer MEDICARE, SELFPAY ==
--- NOTE | 2024-08-23 14:45 | CA_ITS ---
APPROVED REPORT EXAM: Comprehensive 2D, Doppler, and color-flow Echocardiogram Health Type Technician: Zoraida Beauchamp, RCS, RVS Ht: 4 ft 11 in Wt: 96lbs BSA: 1.35 BP: 133/72 mmHg Indications: HFrEF, Afib, MR, TR-PHTN, LVH, CABG, AI/aortic sclerosis, Non hodgkins lymphoma, cardiomegaly 2D Dimensions IVSd 0.77 cm F: 0.6-1.0 LVEF (Visual) 47.00 % PWd 0.64 cm F: 0.6 - 1.0 LA Volume 94.40 mL LVDd 4.25 cm F: 3.9 - 5.3 LA Volume Index 69.93 mL/m2 (M/F) 16-34 LVDs 3.26 cm F: 2.2 - 3.5 Left Atrium 4.06 cm F: 2.7 - 3.8 M-Mode Dimensions RVDd 3.33 cm (0.9-2.6) LA Diam 3.23 cm (1.9-4.0) LVDd 2.92 cm (3.5-5.7) LVDs 2.29 cm (3.5-5.7) IVSd 0.85 cm (0.6-1.1) PWd 0.75 cm (0.6-1.1) EF (Teich) 45.40% EPSs 0.19 cm FS 21.60% EDV (Teich) 32.80 mL TAPSE 1.54 (<1.7) ESV (Teich) 17.90 mL LV Diastology E Decel Time 107 (160-240 msec) E/A Ratio 2.61 MED A' 7.40 cm/s LAT A' 4.10 cm/s Aortic Valve MANJEET Index 0.87 cm2/m2 AoV Peak Aj. 197.0 (50-130 cm/s) AI PHT 551.00 ms AO Peak GR. 15.50 mmHg AO Mean GR. 7.60 (<5 mmHg) AO VTI 36.0 (18-25 cm) MANJEET (VTI) 1.20 (2.5-4.5 cm2) Mitral Valve MV A Velocity 33.0 (40-130 cm/s) E/A Ratio 2.61 Pulmonary Valve PV Peak Velocity 100.0 (50-150 cm/s) Tricuspid Valve TR P. Velocity 391.00 cm/s RAP Estimate 10.00 mmHg RVSP 71.20 mmHg Left Ventricle The left ventricle is normal size. The left ventricular systolic function is low normal. There is increased LV wall thickness. Septal flattening is present, consistent with elevated right-sided pressures. Diastolic function is indeterminate. LVEF is 50%. Right Ventricle Right ventricle is severely dilated. Right ventricle is severely hypokinetic. TAPSE 1.1 cm. Atria Left atrium is severely dilated. Right atrium is severely dilated. There is no Doppler evidence of interatrial shunt. Aortic Valve The aortic valve is mildly thickened. Mild aortic regurgitation. Mild to moderate aortic stenosis. MANJEET by continuity equation is 1.5 cm2. Peak velocity 2.0 m/s. Mean AV gradient 8 mmHg. Max AV gradient 16 mmHg. DI=0.55. SVi 36 ml/m2. Mitral Valve The mitral valve leaflets are mildly thickened. No evidence of mitral valve stenosis. Mild mitral regurgitation. Tricuspid Valve The tricuspid valve leaflets are mildly thickened. Severe tricuspid regurgitation. RVSP is > 60 mmHg (may be inaccurate in the setting of severe TR). Pulmonic Valve The pulmonary valve is normal in structure. Mild pulmonic regurgitation. Great Vessels The aortic root is normal in size. The ascending aorta is not well-visualized. The IVC is normal in size, but collapses < 50% with respirophasic variation. RA pressure is estimated at 8 mmHg. Pericardium There is no pericardial effusion. Other Information Study Quality: Technically Difficult Conclusion Technically difficult study due to poor acoustic windows. Low normal LV systolic function (LVEF 50%). Septal flattening is present, consistent with elevated right-sided pressures. Severe RV dilation with severe reduction in RV function. Severe biatrial dilation. Mild to moderate (MANJEET by continuity equation is 1.5 cm2. Peak velocity 2.0 m/s. Mean AV gradient 8 mmHg. Max AV gradient 16 mmHg. DI=0.55. SVi 36 ml/m2). Severe TR. Mild AI, mild PI. RVSP is > 60 mmHg (may be inaccurate in the setting of severe TR). Compared to prior study from 06/2024, the LVEF is now lower (remains low normal) and severity has progressed from mild to moderate. Electronically signed by : Michelle Rosenthal MD 08/29/2024 00:35:54
== END 2024-08-23 23:59 | disposition home or self-care (01) ==
LOC: RT 14:43
PROVIDERS: PCP Physician Assistant Medical; Visit Provider Internal Medicine
DX: I51.7 Cardiomegaly (principal); I50.33 Acute on chronic diastolic (congestive) heart failure
CPT/HCPCS: 93306

== ENCOUNTER 2024-08-24 15:36 | Outpatient (CLI) | payer MEDICARE, SELFPAY ==
[2024-08-24 16:11] LABS: Chloride 94 mmol/L (98-107); Potassium 5.4 mmoL/L (3.5-5.1); Sodium 129 mmol/L (136-145)
[2024-08-24 16:14] LABS: Anion Gap 11.4 mEq/L (5-15); Blood Urea Nitrogen 38 mg/dl (7-17); Calcium 9.2 mg/dl (8.4-10.2); Carbon Dioxide 29 mmol/L (22.0-30.0); Estimated Glomerular Filt Rate 69 ml/min (>60); GFR (African American) 84 ML/MIN (>60); Glucose 121 mg/dl (74-100)
[2024-08-24 16:47] LABS: NT Pro Brain Natriuretic Pep. 8110 pg/mL (0-450)
== END 2024-08-24 23:59 | disposition home or self-care (01) ==
LOC: LAB 15:37
PROVIDERS: Nurse Practitioner Family; PCP Physician Assistant Medical; Visit Provider Internal Medicine
DX: I50.9 Heart failure, unspecified (principal); I50.33 Acute on chronic diastolic (congestive) heart failure; I50.30 Unspecified diastolic (congestive) heart failure; R06.09 Other forms of dyspnea; I27.20 Pulmonary hypertension, unspecified; I10 Essential (primary) hypertension; E78.2 Mixed hyperlipidemia; R06.00 Dyspnea, unspecified; R60.9 Edema, unspecified
CPT/HCPCS: 36415; 80048; 83880